=== PATIENT | male | born 1980 | race Caucasian/White ===

== ENCOUNTER 2024-12-13 08:58 | Outpatient (REF) | payer OTHER, SELFPAY ==
--- OUTSIDE RECORDS SUMMARY | 2024-12-13 09:22 | XMS_ITS | Clinical Summary ---
Author Organization [facility] [address] [place] [address] [place] [address] [place] [address] Phone Care Team Providers Care Tile Erector Name Role Phone Earnest Dorado Primary Care Provider [phone] Allergies Active Allergy Reactions Criticality Noted Date Comments Erythromycin Swelling High 06/07/2021 Swollen eyes Medications Medication Sig Dispensed Refills Start Date End Date Status atorvastatin (LIPITOR) 80 mg tablet Take 1 tablet (80 mg total) by mouth 1 (one) time each day. 09/06/2024 Active fluticasone propionate (FLONASE) 50 mcg/actuation nasal spray Administer 2 sprays into each nostril 1 (one) time each day. Active sertraline (ZOLOFT) 50 mg tablet Take 1 tablet (50 mg total) by mouth 1 (one) time each day. 08/02/2024 Active oxyCODONE-aceta minophen (PERCOCET) 5-325 mg per tablet Take 1 tablet by mouth every 8 (eight) hours if needed. 05/18/2023 Active BD Ultra-Fine Short Pen Needle 31 gauge x 5/16 needle USE DIRECTED WITH INSULIN PEN 4 TIMES DAILY 400 each 1 09/30/2024 Active omeprazole (PriLOSEC) [address] capsule TAKE 1 CAPSULE BY MOUTH DAILY 90 capsule 3 11/04/2024 Active insulin glargine,hum.re c.anlog (Basaglar KwikPen U-100 Insulin) 100 unit/mL (3 mL) injection pen Inject 26 Units under the skin 1 (one) time each day. 15 mL 2 11/29/2024 Active insulin aspart, niacinamide, (Fiasp FlexTouch U-100 Insulin) 100 unit/mL (3 mL) injection pen Inject 4-6 Units under the skin 3 (three) times a day before meals. 15 mL 2 11/29/2024 Active blood-glucose sensor (FreeStyle Jamil 3 Plus Sensor) deviceIndicatio ns:Jamil 3 not available Box = Kit = EA. Use 1 sensor every 2 weeks. 6 each 2 11/29/2024 Active metFORMIN XR (GLUCOPHAGE-XR) 500 mg 24 hr tablet TAKE 2 TABLETS BY MOUTH TWICE DAILY WITH FOOD 360 tablet 1 12/09/2024 Active metFORMIN XR (GLUCOPHAGE-XR) 500 mg 24 hr tablet Take 2 tablets twice daily with food. 08/02/2024 12/09/19 Discontinued insulin glargine,hum.re c.anlog (Basaglar KwikPen U-100 Insulin) 100 unit/mL (3 mL) injection pen Inject 22-24 Units under the skin 1 (one) time each day. 08/02/2024 11/29/19 Discontinued(Reo rder) insulin aspart, niacinamide, (Fiasp FlexTouch U-100 Insulin) 100 unit/mL (3 mL) injection pen Inject 4-6 Units under the skin 3 (three) times a day before meals. 08/02/2024 11/29/19 Discontinued(Reo rder) blood-glucose sensor (FreeStyle Jamil 3 Plus Sensor) deviceIndicatio ns:Jamil 3 not available Box = Kit = EA. Use 1 sensor every 2 weeks. 6 each 2 09/19/2024 11/29/19 Discontinued(Reo rder) insulin glargine,hum.re c.anlog (Basaglar KwikPen U-100 Insulin) 100 unit/mL (3 mL) injection pen Inject under the skin. 11/29/19 Discontinued(Dup licate order) metFORMIN (GLUCOPHAGE) 500 mg tablet Take 1 tablet (500 mg total) by mouth 3 (three) times a day. 11/29/19 Discontinued(Dup licate order) Active Problems Problem Noted Date Diagnosed Date Hereditary hemochromatosis 08/31/2024 Lumbar radiculopathy 06/23/2023 Acute pancreatitis 05/04/2023 Overview (09/27/2024): [facility] ER History of 2019 novel coronavirus disease (COVID -19) 07/19/2022 Diabetes mellitus type 2 with neurological manif estations 09/18/2020 Diabetic neuropathy 09/18/2020 Deviated septum 11/21/2016 Umbilical hernia 11/21/2016 IBS (irritable bowel syndrome) 02/19/2013 Overview (09/27/2024): Diarrhea predominant, onset 2010. Post-op pain 02/10/2011 Dysuria 01/31/2011 Hyperlipidemia 08/06/2010 Acne 07/13/2010 Encounters Date Type Department Care Team Description 12/06/2024 9:15 AM EST Office Visit [facility] Hematology Oncology [address] [place] [address] Kade Le MD Hereditary hemochromatosis (CMS/HCC) (Primary Dx) 11/29/2024 9:20 AM EST Office Visit Endocrinology [address] [phone] Jazmin Valera PA 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); Hyperlipidemia, unspecified hyperlipidemia type 11/01/2024 9:44 AM EST - 11/01/2024 11:59 PM EST Hospital Encounter [facility] MRI [address] [place] [id number] Discharge Disposition: Home or Self Care 10/25/2024 11:00 AM EST Ancillary Procedure [facility] [address] [place] [phone] Hemochromatosis, unspecified 10/07/2024 Telephone [facility] Hematology Oncology [address] [place] [phone] Angeles Coughlin [place] Echo/ Abdomen MRI from Last 3 Months Immunizations Name Administration Dates Next Due Influenza Quadravalent, MDCK , 0.5ml, preservative free (Flucelvax) 6mo and older 09/18/2020 Influenza trivalent, 0.5mL, preservative free (Fluarix; FluLaval; Fluzone) ages 6mo and older (Afluria) 3 years and older 11/21/2016 Pneumococcal polysaccharide 23 valent (Pneumovax 23) 2yo and older 03/27/2019 Td Tetanus diptheria (Tdvax) 7yo and older 09/18 Tdap Tetanus diptheria acell ular pertussis (Boostrix; Adacel) 7yo and older 08/04/2010 Surgical History Surgery Date Site/Laterality Comments APPENDECTOMY 01/25/2011 PROCEDURE: HISTORICAL APPENDECTOMY COLONOSCOPY 04/30/2012 PROCEDURE: HISTORICAL COLONOSCOPY; COMMENT: 6mm sigmoid colon polyp and random bx. Pathology report: Random biopsies normal, the polyp was a tubular adenoma. He should have colonoscopy again in 5 years. COLONOSCOPY 12/18/2020 PROCEDURE: HISTORICAL COLONOSCOPY; COMMENT: No polyps, repeat in 10 years. APPENDECTOMY 2012 PROCEDURE:LAPAROSCOPIC APPENDECTOMY APPENDECTOMY PROCEDURE:APPENDECTOMY Medical History Medical History Date Comments Acne 07/13/2010 DX:Acne Hyperlipidemia 08/06/2010 DX:Hyperlipidemi a Dysuria 01/31/2011 DX:Dysuria Appendicitis 01/31/2011 DX:Appendicitis Post-op pain 02/10/2011 DX:Post-op pain Benign neoplasm of colon 05/02/2012 DX:Kang gn neoplasm of colon; COMMENT: Colonoscopy 04/30/2012: Pathology: Random biopsies normal, the polyp was a tubular adenoma. He should have colonoscopy again in 5 years. IBS (irritable bowel syndrome) 02/19/2013 D X:IBS (irritable bowel syndrome); COMMENT: Diarrhea predominant, onset 2010. Deviated septum 11/21/2016 DX:Deviated sept um History of colon polyps 05/02/2012 DX:Histo ry of colon polyps; COMMENT: Colonoscopy 04/30/2012: Pathology: Random biopsies normal, the polyp was a tubular adenoma. He should have colonoscopy again in 5 years. 12/18/2020: Negative colonoscopy 12/18/2020, no colon cancer screening needed for 10 years. Diabetes mellitus (CMS/HCC) DX:D iabetes mellitus (HCC) Pancreatitis DX:Pancreatitis Family History Medical History Relation Name Comments Other: unknown Brother 1 Other: vascular disease Brother 2 Bladder Cancer Father nonsmoker Cancer Father bladder Diabetes Mother Other: unknown Mother Pancreatic cancer Uncle Colon cancer Neg Hx Relation Name Status Comments Brother 1 Alive good health Brother 2 Alive good health Father Alive Mother Alive Paternal Grandfather Paternal Grandmother (Age 70) ca ncer, uncertain of type Uncle Alive Social History Tobacco Use Types Packs/Day Years Used Date Smoking Tobacco: Never Cigarettes Qu it: 11/13/2005 Smokeless Tobacco: Never Tobacco Cessation:Counseling Given: Not Answered Alcohol Use Standard Drinks/Week Comments Not Currently 0.8 (1 standard drink = 0.6 oz p ure alcohol) Sex and Gender Information Value Date Recorded Sex Assigned at Not on file Gender Identity Not on file Sexual Orientation Not on file Job Start Date Occupation Industry Not on file Not on file Not on file Obstetrics History Last Filed Vital Signs Vital Sign Reading Time Taken Comments Blood Pressure 123/91 12/06/2024 9:05 AM EST Pulse 81 12/06/2024 9:05 AM EST Temperature 36.6 ??C (97.8 ??F) 12/06/2024 9:05 AM ES T Respiratory Rate - - Oxygen Saturation 98% 12/06/2024 9:05 AM EST Inhaled Oxygen Concentration - - Weight 77.1 kg (170 lb) 12/06/2024 9:05 AM EST Height 172.7 cm (5' 8 ) 11/29/2024 9:14 AM EST Body Mass Index 25.85 11/29/2024 9:14 AM EST Plan of Treatment Upcoming Encounters Date Type Department Care Team (Late st Contact Info) Description 02/28/2025 9:00 AM EDT Office Visit [facility] Hematology Oncology [address] [place] [phone] Kade Le MD [address] [place] [phone] 03/28/2025 9:40 AM EDT Office Visit Endocrinology - [place] [address] [place] [phone] Jazmin Valera PA [address] [place], [place] Health Maintenance Due Date Last Done Comments Hepatitis B Vaccines (1 of 3 - 19+ 3-dose series) 1997 Pneumococcal Vaccine: Pediatrics (0 to 5 Years) and At-Risk Patients (6 to 64 Years) (2 of 2 - PCV) 03/27/2020 03/27/2019 Depression Screening 10/22/2022 Hepatitis C Screening 10/22/2022 Social Influencers of Health Screening 10/22/2022 Diabetes: Annual Foot Exam 04/26/2024 04/26/2023 COVID-19 Vaccine (1 - 2023-2 5 season) 2024 Influenza Vaccine (#1) 2024 0, 11/21/2016 Diabetes: Blood Sugar Contro l Test (HGBA1C) 01/05/2025 07/05/2024, 07/05/2024 Diabetes: Annual Retina Eye Exam 07/04/2025 07/04/2024 Diabetes: Annual Urine Albumin-Creatinine Ratio (uACR) 07/05/2025 07/05/2024 Diabetes: Annual GFR (Glomerular Filtration Rate) 07/05/2025 07/05/2024, 07/05/2024 Cholesterol Screening (Lipid Panel) 07/05/2029 07/05/2024, 07/05/2024 DTaP,Tdap,and Td Vaccines (3 - Td or Tdap) 09/18/2030 09/18/2020, 08/04/2010 Colorectal Cancer Screening: Colonoscopy 12/18/2030 12/18/2020 HIV Screening Completed 04/15/2015 HIB Vaccines Aged Out No longer eligi ble based on patient's age to complete this topic HPV Vaccines Aged Out No longer eligi ble based on patient's age to complete this topic Hepatitis A Vaccines Aged Out No long er eligible based on patient's age to complete this topic IPV Vaccines Aged Out No longer eligi ble based on patient's age to complete this topic MMR Vaccines Aged Out No longer eligi ble based on patient's age to complete this topic Meningococcal ACWY Vaccine Aged Out N o longer eligible based on patient's age to complete this topic RSV Immunization Patients Under 20 months Aged Out No longer eligible b ased on patient's age to complete this topic Varicella Vaccines Aged Out No longer eligible based on patient's age to complete this topic Procedures Procedure Name Priority Date/Time Associated Diagnosis Comments MR ABDOMEN WO AND W CONTRAST Routine 11/01/2024 11:04 AM EST Hemochromatosis TRANSTHORACIC ECHOCARDIOGRAM (TTE) COMPLETE Routine 10/25/2024 11:43 AM EST Hemochromatosis, unspecified URINE ALBUMIN CREATININE RATIO Routine 07/05/2024 ANNUAL BMP BLOOD TEST Routine 07/05/2024 HEMOGLOBIN A1C Routine 07/05/2024 LIPID PANEL Routine 07/05/2024 DIABETES EYE EXAM Routine 07/04/2024 DIABETES FOOT EXAM Routine 04/26/2023 COLONOSCOPY Routine 12/18/2020 HIV SCREENING Routine 04/15/2015 from Last 3 Months or Most Recently Relevant to Health Maintenance Results * MR Abdomen wo and w Contrast (11/01/2024 11:04 AM EST) Anatomical Region Laterality Modality Body Magnetic Resonan ce 11/01/2024 3:11 PM EST Impressions 11/01/2024 4:00 PM EST Significant hepatic iron overload. ??Calculated liver iron concentration of between 4.60 mg/g using T2*values and the 6.1-6.9 mg/g using R2*values (normal range is 0.17-1.8 mg/g). -------- FINAL REPORT -------- Dictated By: Tremaine Dalal Dictated Date: 11/01/2024 15:11 ET Assigned Physician: Tremaine Dalal Reviewed and Electronically Signed By: Tremaine Dalal Signed Date: 11/01/2024 16:00 ET Workstation ID: [id number] Transcribed By: Self Edit Transcribed Date: 11/01/2024 15:11 ET Narrative 11/01/2024 4:00 PM EST MRI abdomen dated 11/01/2024. HISTORY: HEMOCHROMATOSIS. TECHNIQUE: Multiplanar multisequence MRI of the abdomen with and without intravenous contrast. IV contrast dose: 15 mL Dotarem from a 15 mL vial with 0 mL discarded. COMPARISON: 06/01/2023. FINDINGS: Liver: No focal lesion. ??The portal and hepatic veins are patent. ??Multiecho gradient echo imaging was performed for quantitative iron measurement to the liver. ??R2* values range from 455-513 (yielding a calculated liver iron concentration 6.1-6.9 mg/g). ??T2* values range from 2.980-3.005 (yielding a calculated liver iron concentration of 4.60 mg/g). Biliary: Normal gallbladder and biliary tree. Pancreas: Normal. Spleen: Upper normal size. ??No focal lesion. Adrenal glands: Normal. Kidneys: Normal. ??Visualized portions of the collecting systems are normal. Retroperitoneum: No mass or adenopathy. Bowel/mesentery: Visualized bowel and mesentery are normal. Abdominal wall: Small fat-containing paraumbilical hernia. Bones: Normal. Procedure Note Tremaine Dalal MD - 11/01/2024 MRI abdomen dated 11/01/2024. HISTORY: HEMOCHROMATOSIS. TECHNIQUE: Multiplanar multisequence MRI of the abdomen with and withoutintravenous contrast. IV contrast dose: 15 mL Dotarem from a 15 mL vial with 0 mL discarded. COMPARISON: 06/01/2023. FINDINGS: Liver: No focal lesion. The portal and hepatic veins are patent.Multiecho gradient echo imaging was performed for quantitative ironmeasurement to the liver. R2* values range from 455-513 (yielding acalculated liver iron concentration 6.1-6.9 mg/g). T2* values range from2.980-3.005 (yielding a calculated liver iron concentration of 4.60mg/g). Biliary: Normal gallbladder and biliary tree. Pancreas: Normal. Spleen: Upper normal size. No focal lesion. Adrenal glands: Normal. Kidneys: Normal. Visualized portions of the collecting systems arenormal. Retroperitoneum: No mass or adenopathy. Bowel/mesentery: Visualized bowel and mesentery are normal. Abdominal wall: Small fat-containing paraumbilical hernia. Bones: Normal. IMPRESSION: Significant hepatic iron overload. Calculated liver iron concentration ofbetween 4.60 mg/g using T2*values and the 6.1-6.9 mg/g using R2*values(normal range is 0.17- 1.8 mg/g). -------- FINAL REPORT -------- Dictated By: Tremaine Dalal Dictated Date: 11/01/2024 15:11 ET Assigned Physician: Tremaine Dalal Reviewed and Electronically Signed By: Tremaine Dalal Signed Date: 11/01/2024 16:00 ET Workstation ID: [id number] Transcribed By: Self Edit Transcribed Date: 11/01/2024 15:11 ET Kade Le MD IMG MRI PROCEDURES * (ABNORMAL) TRANSTHORACIC ECHOCARDIOGRAM (TTE) COMPLETE (10/25/2024 11:43 AM EST) Left Atrium Minor Ulysses 4.5 cm CV PACS Left Atrium Major Ulysses 5.0 cm CV PACS LA Area Sys (A2C) 15 cm2 CV PACS LA Area Sys (A4C) 13 cm2 CV PACS LA Volume (BP) 33 mL CV PACS RA Area 12.4 cm2 CV PACS RA 2D Volume 27 mL CV PACS Aortic Sinus Valsalva 3.3 cm CV PACS Ascending Aorta 2.9 cm CV PACS IVSD 0.9 0.6 - 1.0 cm CV PACS LVIDD 4.3 4.2 - 5.8 cm CV PACS LVIDS 2.7 2.5 - 4.0 cm CV PACS LVOT Diameter 1.8 cm CV PACS LVOT Mean Jewel 0.6 m/s CV PACS LVOT Mean Grad 1 mmHg CV PACS LVOT Peak VTI 18.0 cm CV PACS LVOT Peak Jewel 1.0 m/s CV PACS LVOT Peak Gradient 4 mmHg CV PACS LVPWD 0.9 0.6 - 1.0 cm CV PACS MV E' Tissue Velocity Lateral 12 cm/s CV PACS MV E' Tissue Velocity Septal 9 cm/s CV PACS LVOT Area 2.5 cm2 CV PACS LVOT Stroke Volume 46 mL CV PACS E Wave Deceleration Time 201 119 - 242 ms CV PACS MV Peak A Jewel 0.60 m/s CV PACS MV Peak E Jewel 0.60 m/s CV PACS PV Acceleration Time 145 ms CV PACS RV Diastolic Basal Dimension 2.9 2.5 - 4.1 cm CV PACS RV S' 12 cm/s CV PACS TAPSE 18 mm CV PACS TR Peak Velocity 1.50 m/s CV PACS TR Peak Gradient 9 mmHg CV PACS E/E' Ratio Septal 7 CV PACS E/E' Ratio Averaged 6 CV PACS Relative Wall Thickness ratio 0.42 0.24 - 0.42 CV PACS FS 37 % CV PACS LV Mass 2D 122 96 - 200 g CV PACS LVOT flow 153 mL/s CV PACS E/A Ratio 1.0 0.8 - 2.0 CV PACS E/E' Ratio Lateral 5 CV PACS LVOT Stroke Index 0 mL/m2 CV PACS Ascending Aorta Index 1.53 cm/m2 CV PACS RA 2D Volume Index 14 18 - 32 mL/m2 CV PACS LVIDD Index 2.28 cm/m2 CV PACS LVIDS Index 1.43 cm/m2 CV PACS LA Volume Index (BP) 17 mL/m2 CV PACS LV Mass Index 2D 65 50 - 102 g/m2 CV PACS BSA 1.91 m2 CV PACS Ejection Fraction (BP) 44 % CV PACS Ejection Fraction (A4C) 40 % CV PACS Ejection Fraction (A2C) 49 % CV PACS LV Diastolic Volume (BP) 96 62 - 150 mL CV PACS LV Diastolic Volume Index (BP) 0(A) 34 - 74 mL/m2 CV PACS LV Systolic Volume (BP) 54 21 - 61 mL CV PACS LV Systolic Volume Index (BP) 0(A) 11 - 31 mL/m2 CV PACS LV EDV (A4C) 91 mL CV PACS LV EDV Index (A4C) 48 mL/m2 CV PACS LV ESV (A4C) 55 mL CV PACS LV ESV Index (A4C) 29 mL/m2 CV PACS LV EDV (A2C) 100 mL CV PACS LV EDV Index (A2C) 53 mL/m2 CV PACS LV ESV (A2C) 51 mL CV PACS LV ESV Index (A2C) 27 mL/m2 CV PACS LA Volume (A-L) 53 mL CV PACS LA Volume Index (A-L) 28 mL/m2 CV PACS RV Free Wall Peak S' 12 cm/s CV PACS RA Major Ulysses 4.7 cm CV PACS RA Major Ulysses Index 2.5 2.1 - 2.7 cm/m2 CV PACS MV PHT 58 ms CV PACS LV EF MOD 2C 49 % CV PACS LV EF 4C A-L 42 % CV PACS LV EDV 4C A-L 93 mL CV PACS LV Length Sys (A4C) 7.2 cm CV PACS LV Length Florez (A4C) 8.4 cm CV PACS Left Ventricular Stroke Volume by 2-D Biplane-MOD 42 mL CV PACS Anatomical Region Laterality Modality Ultrasound Narrative 10/31/2024 1:51 PM EST ?Left ventricle cavity size is normal. Left ventricular systolic function is in the normal range with an ejection fraction of 55-60%. ?No regional LV wall motion abnormalities noted. ?Right ventricle cavity is normal. Right ventricular systolic function is normal. ?The atria are normal in size. ?No hemodynamically significant valve disease. ?See remainder of the report for additional findings. Left Ventricle Left ventricle cavity size is normal. Wall thickness is normal. Systolic function is normal with an ejection fraction of 55-60%. There are no regional LV wall motion abnormalities. There is no diastolic dysfunction. Normal Global longitudinal strain at -22.2%. Right Ventricle Right ventricle cavity appears normal. Systolic function is normal. Left Atrium Left atrium cavity size is normal. Right Atrium Right atrium cavity is normal. IVC/SVC Inferior vena cava structure is normal. RA pressures is estimated to be 3 mmHg (IVC diameter <21 mm and decreases >50% during inspiration). Mitral Valve Mitral valve structure is normal. There is trace regurgitation. There is no evidence of mitral valve stenosis. Tricuspid Valve Tricuspid valve structure is normal. There is trace regurgitation. There is no evidence of tricuspid valve stenosis. Cannot assess RVSP. Aortic Valve The aortic valve is trileaflet. There is no regurgitation or stenosis. Pulmonic Valve Visualized portions of the pulmonic valve appear normal. No significant pulmonic valve regurgitation. There is no evidence of pulmonic valve stenosis. Ascending Aorta The aorta appears normal in size. Pericardium Pericardium appears normal. There is no pericardial effusion. Study Details Overall the study quality was adequate. Additional technique includes myocardial strain. Kade Le MD CV ECHO PROCEDURES * Urine Albumin Creatinine Ratio (07/05/2024) [facility] Urine Albumin Creatinine Ratio abstracted Historical Provider [facility] Annual BMP Blood Test (07/05/2024) [facility] Annual BMP Blood Test abstracted Historical Provider [facility] Hemoglobin A1c (07/05/2024) [facility] Hemoglobin A1C 5.5 6.5 % Blood Venous blood specimen / Unknown Historical Provider LAB BLOOD ORDERAB LES * (ABNORMAL) Lipid panel (07/05/2024) [facility] LDL/HDL Ratio 2 0 - 4 Triglycerides 169(A) 0 - 150 mg/dL Cholesterol 112 0 - 200 mg/dL HDL 52 40 mg/dL LDL Cholesterol 27 0 - 100 mg/dL Blood Venous blood specimen / Unknown Historical Provider LAB BLOOD ORDERAB LES * Diabetes Eye Exam (07/04/2024) [facility] Diabetes: Annual Retina Eye Exam abstracted [facility] Provider [facility] [employer] [facility] Diabetes Foot Exam (04/26/2023) [facility] Diabetes: Annual Foot Exam abstracted [facility] Provider [facility] * Colonoscopy (12/18/2020) [facility] Colonoscopy no inperatati on,abstact ed Anatomical Region Laterality Modality Other [facility] Provider [facility] * HIV Screening (04/15/2015) [facility] HIV Screening abstracted [facility] Provider [facility] E from Last 3 Months or Most Recently Relevant to Health Maintenance Care Teams Tile Erector Relationship Specialty Start Date End Date Earnest Dorado PA [address] [facility] [place] [id number] PCP - General Internal Medicine 10/09/24
--- OUTSIDE RECORDS SUMMARY | 2024-12-13 09:22 | XMS_ITS | Clinical Summary ---
Author Organization [facility] Address [address] [place], [place] [id number] Care Team Providers Care Bench Grinder Name Role Phone Earnest Dorado PA-C Primary Care Provider Allergies Active Allergy Reactions Criticality Noted Date Comments Erythromycin Swelling High 06/07/2021 Swollen eyes Medications Medication Sig Dispensed Refills Start Date End Date Status metFORMIN (GLUCOPHAGE) tablet 500 mg Take 1 tablet (500 mg total) by mouth 3 (three) times a day. 0 Active atorvastatin (LIPITOR) tablet 40 mg Take 1 tablet (40 mg total) by mouth daily. 0 Active omeprazole (PriLOSEC) 20 MG capsule Take 1 capsule (20 mg total) by mouth daily. 0 Active fluticasone (FLONASE) 50 MCG/ACT nasal spray spray/apply 1 spray in each nostril daily. 0 Active sertraline (ZOLOFT) 50 MG tablet Take 1 tablet (50 mg total) by mouth daily. 0 Active Insulin Glargine (BASAGLAR KWIKPEN SC) Inject under the skin. 0 Active Insulin Aspart, w/Niacinamide, (Fiasp) 100 UNIT/ML SOLN Inject as directed. 0 Active Active Problems Problem Noted Date Diagnosed Date Hereditary hemochromatosis 08/31/2024 Family History Medical History Relation Name Comments Cancer Father bladder Diabetes Mother Relation Name Status Comments Father Alive Mother Alive Social History Tobacco Use Types Packs/Day Years Used Date Smoking Tobacco: Never Smokeless Tobacco: Never Tobacco Cessation:Counseling Given: Not Answered Alcohol Use Standard Drinks/Week Comments Not Currently 0 (1 standard drink = 0.6 oz pur e alcohol) Sex and Gender Information Value Date Recorded Sex Assigned at Not on file Gender Identity Not on file Sexual Orientation Not on file Job Start Date Occupation Industry Not on file Not on file Not on file Last Filed Vital Signs Vital Sign Reading Time Taken Comments Blood Pressure 133/84 08/30/2024 11:34 AM EDT Pulse 72 08/30/2024 11:34 AM EDT Temperature 36.7 ??C (98 ??F) 08/30/2024 11:34 AM EDT Respiratory Rate - - Oxygen Saturation 98% 08/30/2024 11:34 AM EDT Inhaled Oxygen Concentration - - Weight 73.5 kg (162 lb) 08/30/2024 11:34 AM EDT Height 172.7 cm (5' 8 ) 05/17/2023 2:33 PM EDT Body Mass Index 24.63 05/17/2023 2:33 PM EDT Plan of Treatment Health Maintenance Due Date Last Done Comments Hepatitis B Vaccines (1 of 3 - 3-dose series) 1978 Hepatitis C Screening 1978 COVID-19 Vaccine (#1) 05/26/1979 Depression Screening 1990 Preventative Health Evaluation 1996 DTap / Tdap / Td (2 - Td or Tdap) 08/04/2020 010 Colon Cancer Screening (Colonoscopy) 2023 Influenza Vaccine (#1) 2024 09/18/2020 Pneumococcal Vaccine Aged Out 03/27/2019 No long er eligible based on patient's age to complete this topic RSV Ped < 20 months Aged Out No longe r eligible based on patient's age to complete this topic Care Teams Bench Grinder Relationship Specialty Start Date End Date Earnest Dorado PA-C PCP - General Medical Services 07/09/24
--- OUTSIDE RECORDS SUMMARY | 2024-12-13 09:23 | XMS_ITS | Encounter Summary ---
Author Organization [facility] [place] [address] Care Team Providers Care Shingle Catcher Name Role Phone Earnest Dorado Primary Care Provider +1 [phone] Encounter Details Date Type Department Care Team (Late st Contact Info) Description 08/30/2024 11:13 AM EDT Hospital Encounter TH HISTORIC ENCOUNTERS [facility] ONLY Kade Le MD [address] [place] [phone] Social History Tobacco Use Types Packs/Day Years Used Date Smoking Tobacco: Never Cigarettes Qu it: 11/13/2005 Smokeless Tobacco: Never Alcohol Use Standard Drinks/Week Comments Not Currently 0.8 (1 standard drink = 0.6 oz p ure alcohol) Sex and Gender Information Value Date Recorded Sex Assigned at Not on file Gender Identity Not on file Sexual Orientation Not on file Job Start Date Occupation Industry Not on file Not on file Not on file documented as of this encounter Last Filed [...] daughter. 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 He has 1 son [...] Description 02/28/2025 9:00 AM EDT Office Visit [facility] Hematology Oncology [address] [place] [address] Kade Le MD [address] [place] [address] 03/28/2025 9:40 AM EDT Office Visit Endocrinology - [address] [address] Jazmin Valera PA [address] [place] [address] documented as of this encounter Visit Diagnoses Not on filedocumented in this encounter Care Teams Shingle Catcher Relationship Specialty Start Date End Date Earnest Dorado PA PCP - General Internal Medicine 02/23/21 10/08/24 documented as of this encounter
--- OUTSIDE RECORDS SUMMARY | 2024-12-13 09:23 | XMS_ITS | Encounter Summary ---
Author Organization [facility] [place] [address] Care Team Providers Care Assembly Line Brazer Name Role Phone Earnest Dorado Primary Care Provider +1 [phone] Reason for Visit * Reason Comments Diabetes Encounter Details Date Type Department Care Team (Late st Contact Info) Description 11/29/2024 9:20 AM EST Office Visit Endocrinology - [place] [address] [place] [address] Jazmin Valera PA [address] [place] [address] 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); Hyperlipidemia, unspecified hyperlipidemia type Social History Tobacco Use Types Packs/Day Years [...] Sign Reading Time Taken Comments Blood Pressure 117/79 11/29/2024 9:14 AM EST Pulse 67 11/29/2024 9:14 AM EST Temperature 36.2 ??C (97.2 ??F) 11/29/2024 9:14 AM ES T Respiratory Rate - - Oxygen Saturation 97% 11/29/2024 9:14 AM EST Inhaled Oxygen Concentration - - Weight 76.8 kg (169 lb 6.4 oz) 11/29/2024 9:14 A M EST Height 172.7 cm (5' 8 ) 11/29/2024 9:14 AM EST Body Mass Index 25.76 11/29/2024 9:14 AM EST documented in this encounter Ordered Prescriptions Prescription Sig Dispensed Refills Start Date End Da te blood-glucose sensor (FreeStyle Jamil 3 Plus Sensor) deviceIndications:Jamil 3 not available Box = Kit = EA. Use 1 sensor every 2 weeks. 6 each 2 11/29/2024 insulin aspart, niacinamide, (Fiasp FlexTouch U-100 Insulin) 100 unit/mL (3 mL) injection pen Inject 4-6 Units under the skin 3 (three) times a day before meals. 15 mL 2 11/29/2024 insulin glargine,hum.rec.anlog (Basaglar KwikPen U-100 Insulin) 100 unit/mL (3 mL) injection pen Inject 26 Units under the skin 1 (one) time each day. 15 mL 2 11/29/2024 documented in this encounter Progress Notes * Sarahi Gimenez MA - 11/29/2024 9:20 AM EST FSBS 156 per CGM * OSCAR Prajapati - 11/29/2024 9:20 AM EST CHIEF COMPLAINT: Diabetes IDENTIFIER: Toan Savage is a 44 y.o. old male HPI: Patient is a 44-year-old male presents today for diabetes follow up. History of pancreatitis. No longer taking Jardiance. Diagnosed with diabetes at the age of 38. Denies any family history of diabetes. Denies any hospitalization. Lab Results Component Value Date HGBA1C 5.5 07/05/2024 HGBA1C 5.6 01/25/2024 HGBA1C 5.6 01/25/2024 HGBA1C 5.2 04/13/2023 HGBA1C 5.9 11/08/2022 Current diabetic regimen: Metformin 500 mg 2 tablets in AM Glargine 26 units every morning NovoLog 4 to 6 units before meals No complaints of polyuria, polydipsia, nausea vomiting Denies persistently low sugars. Making good dietary choices, active during the day. Using jamil 3: 7 day average: 160 14 day average: 158 30 day average: 155 90 day average: 149 Time and ranges: Very high sugars greater than 250: 2% High sugars between 181 and 250: 18% Target range between 70 and 180: 80% Low or very low sugars: 0%. Not taking statin for the last one month, he thinks he might not need this. BP is at 130/61 Overdue for eye exam--needs to schedule this. Lab Results Component Value Date HGBA1C 5.5 07/05/2024 ROS: GENERAL: No malaise, significant weight loss or fever HEENT: No changes in hearing or vision RESPIRATORY: No cough, wheezing or shortness of breath CARDIOVASCULAR: No chest pain, leg swelling or palpitations GI: No abdominal discomfort ENDO: see HPI NEURO: No persistent headache, syncope PAST MEDICAL HISTORY: Patient Active Problem List Diagnosis Date Noted Hereditary hemochromatosis ([facility]/HCC) 08/31/2024 Lumbar radiculopathy 06/23/2023 Acute pancreatitis 05/04/2023 History of 2019 novel coronavirus disease (COVID-19) 07/19/2022 Diabetes mellitus type 2 with neurological manifestations ([facility]) 09/18/2020 Diabetic neuropathy ([facility]) 09/18/2020 Deviated septum 11/21/2016 Umbilical hernia 11/21/2016 IBS (irritable bowel syndrome) 02/19/2013 Post-op pain 02/10/2011 Dysuria 01/31/2011 Hyperlipidemia 08/06/2010 Acne 07/13/2010 Past Surgical History: Procedure Laterality Date APPENDECTOMY 01/25/2011 PROCEDURE: HISTORICAL APPENDECTOMY APPENDECTOMY 2012 PROCEDURE:LAPAROSCOPIC APPENDECTOMY APPENDECTOMY PROCEDURE:APPENDECTOMY COLONOSCOPY 04/30/2012 PROCEDURE: HISTORICAL COLONOSCOPY; COMMENT: 6mm sigmoid colon polyp and random bx. Pathology report: Random biopsies normal, the polyp was a tubular adenoma. He should have colonoscopy again in 5 years. COLONOSCOPY 12/18/2020 PROCEDURE: HISTORICAL COLONOSCOPY; COMMENT: No polyps, repeat in 10 years. SOCIAL HISTORY: Social History Tobacco Use Smoking status: Never Smokeless tobacco: Never Substance Use Topics Alcohol use: Not Currently Alcohol/week: 0.8 standard drinks of alcohol FAMILY HISTORY: Family History Problem Relation Name Age of Onset Other (Other: unknown) Mother Bladder Cancer Father nonsmoker Other (Other: unknown) Brother Other (Other: vascular disease) Brother Pancreatic cancer Uncle Colon cancer Neg Hx Diabetes Mother Cancer Father bladder Family Status Relation Name Status Mother Alive Father Alive Brother Alive good health Brother Alive good health Uncle Alive Neg Hx (Not Specified) PGM at age 70 cancer, uncertain of type PGF No partnership data on file MEDICATIONS DISCONTINUED/REORDERED: Medications Discontinued During This Encounter Medication Reason metFORMIN (GLUCOPHAGE) 500 mg tablet Duplicate order insulin glargine,hum.rec.anlog (Basaglar KwikPen U-100 Insulin) 100 unit/mL (3 mL) injection pen Duplicate order insulin glargine,hum.rec.anlog (Basaglar KwikPen U-100 Insulin) 100 unit/mL (3 mL) injection pen Reorder insulin aspart, niacinamide, (Fiasp FlexTouch U-100 Insulin) 100 unit/mL (3 mL) injection pen Reorder blood-glucose sensor (FreeStyle Jamil 3 Plus Sensor) device Reorder ACTIVE MEDICATIONS: Outpatient Medications Marked as Taking for the 11/29/24 encounter (Office Visit) with OSCAR Prajapati Medication Sig Dispense Refill atorvastatin (LIPITOR) 80 mg tablet Take 1 tablet (80 mg total) by mouth 1 (one) time each day. BD Ultra-Fine Short Pen Needle 31 gauge x 5/16 needle USE DIRECTED WITH INSULIN PEN 4 TIMES DAILY 400 each 1 blood-glucose sensor (FreeStyle Jamil 3 Plus Sensor) device Box = Kit = EA. Use 1 sensor every 2 weeks. 6 each 2 fluticasone propionate (FLONASE) 50 mcg/actuation nasal spray Administer 2 sprays into each nostril1 (one) time each day. insulin aspart, niacinamide, (Fiasp FlexTouch U-100 Insulin) 100 unit/mL (3 mL) injection pen Inject 4-6 Units under the skin 3 (three) times a day before meals. 15 mL 2 insulin glargine,hum.rec.anlog (Basaglar KwikPen U-100 Insulin) 100 unit/mL (3 mL) injection pen Inject 26 Units under the skin 1 (one) time each day. 15 mL 2 metFORMIN XR (GLUCOPHAGE-XR) 500 mg 24 hr tablet Take 2 tablets twice daily with food. omeprazole (PriLOSEC) [address] capsule TAKE 1 CAPSULE BY MOUTH DAILY 90 capsule 3 oxyCODONE-acetaminophen (PERCOCET) 5-325 mg per tablet Take 1 tablet by mouth every 8 (eight) hoursif needed. Max Daily Amount: 3 tablets sertraline (ZOLOFT) 50 mg tablet Take 1 tablet (50 mg total) by mouth 1 (one) time each day. [DISCONTINUED] blood-glucose sensor (FreeStyle Jamil 3 Plus Sensor) device Box = Kit = EA. Use 1 sensor every 2 weeks. 6 each 2 [DISCONTINUED] insulin aspart, niacinamide, (Fiasp FlexTouch U-100 Insulin) 100 unit/mL (3 mL) injection pen Inject 4-6 Units under the skin 3 (three) times a day before meals. [DISCONTINUED] insulin glargine,hum.rec.anlog (Basaglar KwikPen U-100 Insulin) 100 unit/mL (3 mL) injection pen Inject 22-24 Units under the skin 1 (one) time each day. [DISCONTINUED] insulin glargine,hum.rec.anlog (Basaglar KwikPen U-100 Insulin) 100 unit/mL (3 mL) injection pen Inject under the skin. ALLERGIES: Erythromycin PHYSICAL EXAM: Blood pressure 117/79, pulse 67, temperature 36.2 ??C (97.2 ??F), temperature source Temporal, height 1.727 m (68 ), weight 76.8 kg (169 lb 6.4 oz), SpO2 97%. Body mass index is 25.76 kg/m??. Plan isdeferred until next visit APPEARANCE: Alert and in no acute distress HEART: RRR LUNG: clear to auscultation NEURO: Awake, alert LABS: Lab Results Component Value Date HGBA1C 5.5 07/05/2024 Lab Results Component Value Date MICROALBCREA abstracted 07/05/2024 No results found for: GLUCOSE IMAGING: IMPRESSION: 1. Diabetes mellitus type 2 with neurological manifestations (CMS/[facility]) 2. Hyperlipidemia, unspecified hyperlipidemia type PLAN: Diabetes: AGP report is reviewed today. Average glucose at 158 with target range met at 80% for sugars between 70 and 180. No change to insulin No change to metformin. Refill sent. Diabetic diet reinforced, cutting back on carbohydrates avoiding sugary snacks and drinks, starchy vegetables. Continue to remain active, brisk walking 20 to 30 minutes a day x5 days a week. Avoid frequent snacking. Target fasting sugars between 90 and 130 and 2 or postprandial sugars less than 180 are discussed. Previous microalbumin test was negative. Check fasting lipids, will restart statin after reviewing panel. Blood pressure control reasonable, low-salt diet. Return here in 4 months for reevaluation. Medication and lab orders: Orders Placed This Encounter Procedures Hemoglobin A1c Lipid panel with reflex to direct LDL None OSCAR Vann on 11/29/2024 at 9:45 AM EST documented in this encounter Plan of Treatment Upcoming Encounters Date Type Department Care Team (Late st Contact Info) Description 02/28/2025 9:00 AM EDT Office Visit [facility] Hematology Oncology [address] [place] [address] Kade Le MD [address] [place] [address] 03/28/2025 9:40 AM EDT Office Visit Endocrinology - [address] [address] Jazmin Valera PA [address] [place] [address] Scheduled Orders Name Type Priority Associated Diagnoses Orde r Schedule Hemoglobin A1c Lab Routine Diabetes mellitus type 2 with neurological manifestations ([facility]/HCC) Expected: 11/29/2024, Expires: 11/29/2025 Lipid panel with reflex to direct LDL Lab Routine Diabetes mellitus type 2 with neurological manifestations (CMS/HCC) Hyperlipidemia, unspecified hyperlipidemia type Expected: 11/29/2024, Expires: 11/29/2025 documented as of this encounter Visit Diagnoses Diagnosis Diabetes mellitus type 2 with neurological manifestations (CMS/HCC)- Primary Hyperlipidemia, unspecified hyperlipidemia type documented in this encounter Discontinued Medications Medication Sig Discontinue Reason Start Date End Da te metFORMIN (GLUCOPHAGE) 500 mg tablet Take 1 tablet (500 mg total) by mouth 3 (three) times a day. Duplicate order 11/29/2024 insulin glargine,hum.rec.anlog (Basaglar KwikPen U-100 Insulin) 100 unit/mL (3 mL) injection pen Inject under the skin. Duplicate order 11/29/2024 insulin glargine,hum.rec.anlog (Basaglar KwikPen U-100 Insulin) 100 unit/mL (3 mL) injection pen Inject 22-24 Units under the skin 1 (one) time each day. Reorder 08/02/2024 11/29/2024 insulin aspart, niacinamide, (Fiasp FlexTouch U-100 Insulin) 100 unit/mL (3 mL) injection pen Inject 4-6 Units under the skin 3 (three) times a day before meals. Reorder 08/02/2024 11/29/2024 blood-glucose sensor (FreeStyle Jamil 3 Plus Sensor) deviceIndications:Jamil 3 not available Box = Kit = EA. Use 1 sensor every 2 weeks. Reorder 09/19/2024 11/29/2024 documented as of this encounter Care Teams Assembly Line Brazer Relationship Specialty Start Date End Date Earnest Dorado PA [address] [place] [address] PCP - General Internal Medicine 10/09/24 documented as of this encounter
--- OUTSIDE RECORDS SUMMARY | 2024-12-13 09:24 | XMS_ITS | Encounter Summary ---
Author Organization [facility] [place] [address] Care Team Providers Care Manager Travel Name Role Phone Earnest Dorado Primary Care Provider +1 [phone] Reason for Visit * Reason Comments Follow-up Encounter Details Date Type Department Care Team (Latest Contact Info) Description 12/06/2024 9:15 AM EST Office Visit Hematology Oncology [address] [place] [address] Kade Le MD [address] [place] [address] Hereditary hemochromatosis (CMS/HCC) (Primary Dx) Social History Tobacco Use Types Packs/Day Years [...] (170 lb) 12/06/2024 9:05 AM EST Height - - Body Mass Index 25.85 11/29/2024 9:14 AM EST documented in this encounter Progress Notes * Kade Le MD - 12/06/2024 9:15 AM EST Diagnosis/treatment: Hereditary hemochromatosis. Interval history: The patient is a 44-year-old gentleman who is referred for management of hereditary hemochromatosis. He denies awareness of any family history of hemochromatosis. LFTs on 01/25/2024 were normal. A percent transferrin saturation was elevated at 53. A ferritin was 265. 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 A CBC on 07/05/2024 showed WBC 8.0, hemoglobin 16.5 with MCV 90, and platelet count 296,000. A creatinine was 1.3. A calcium was 10.1. LFTs were normal. A percent transferrin saturation was 79. An echocardiogram on 10/25/2024 showed a normal LVEF and no evidence of iron deposition. An abdominal MRI with contrast on 11/01/2024 showed marked iron overload with a iron concentration between 4.6 mg/g by T2 values and 6.9 mg/g using R2 values. He reports an excellent exercise tolerance. He [...] daughter. 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 He has 1 son and 1 daughter. He denies tobacco use. He smokes marijuana. He denies alcohol use. Physical examination: Deferred. 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 He reports an excellent exercise tolerance. An echocardiogram in 10/2024 showed a normal LVEF and no iron deposition. LFTs have been normal. However, an abdominal MRI in 10/2024 showed marked iron deposition. We will start a phlebotomy regimen to keep the percent transferrin saturation and ferritin less than 50 and achieve an iron deficiency. We will start with phlebotomies at 1 unit every 2 weeks. We will monitor abdominal MRIs for iron deposition. His father and paternal uncle reportedly tested positive for germline BRCA genetic mutation. The patient states that he will also be tested. Visit summary: The patient is a 44-year-old gentleman recently found to have hereditary hemochromatosis. An echocardiogram showed a normal LVEF and no iron deposition. An abdominal MRI showed marked iron deposition. We will start a phlebotomy regimen with 1 unit every 2 weeks to decrease the hepatic iron load. This encounter is of moderate risk. The patient has hereditary hemochromatosis, which is a life-threatening condition. Will start a phlebotomy regimen. documented in this encounter Plan of Treatment Upcoming Encounters Date Type Department Care Team (Late st Contact Info) Description 02/28/2025 9:00 AM EDT Office Visit Hematology Oncology [address] [place] [phone] Kade Le MD [address] [place] [phone] 03/28/2025 9:40 AM EDT Office Visit [address] [address] Jazmin Valera PA [address] [place] [address] Scheduled Orders Name Type Priority Associated Diagnoses Orde r Schedule CBC and differential Lab Routine Hereditary hemochromatosis (CMS/HCC) Expected: 03/06/2025 (Approximate), Expires: 12/06/2025 Ferritin Lab Routine Hereditary hemochromatosis (CMS/HCC) Expected: 03/06/2025 (Approximate), Expires: 12/06/2025 Iron and TIBC Lab Routine Hereditary hemochromatosis (CMS/HCC) Expected: 03/06/2025 (Approximate), Expires: 12/06/2025 Comprehensive metabolic panel Lab Routine Hereditary hemochromatosis (CMS/HCC) Expected: 03/06/2025 (Approximate), Expires: 12/06/2025 documented as of this encounter Visit Diagnoses Diagnosis Hereditary hemochromatosis (CMS/HCC)- Primary Hereditary hemochromatosis documented in this encounter Care Teams Manager Travel Relationship Specialty Start Date End Date Earnest Dorado PA [address] [place] [address] PCP - General Internal Medicine 10/09/24 documented as of this encounter
== END 2024-12-13 08:59 | disposition home or self-care (01) ==
LOC: HO.BBR 08:58
PROVIDERS: PCP Physician Assistant Medical; Visit Provider Internal Medicine Hematology & Oncology
DX: Z13.89 Encounter for screening for other disorder (principal)

== ENCOUNTER 2024-12-27 08:49 | Outpatient (REF) | payer OTHER, SELFPAY ==
--- OUTSIDE RECORDS SUMMARY | 2024-12-27 09:06 | XMS_ITS | Encounter Summary ---
Author Organization [facility] [place] [address] Care Team Providers Care Toll Testboard Worker Name Role Phone Earnest Dorado Primary Care Provider +1 [phone] Encounter Details Date Type Department Care Team (Latest Contact Info) Description 12/17/2024 6:00 AM EST - 12/17/2024 11:59 PM EST Hospital Encounter [facility] Xray [address] [place] [address] Pain Discharge Disposition: Home or Self Care Social History Tobacco Use Types Packs/Day Years Used Date Smoking Tobacco: Former Cigarettes Q uit: 11/10/2003 Smokeless Tobacco: Never Alcohol Use Standard Drinks/Week Comments Never 0.8 (1 standard drink = 0.6 oz p ure alcohol) Interpersonal Safety Answer Date Record ed Physical Abuse 12/17/2024 Verbal Abuse 12/17/2024 Sex and Gender Information Value Date Recorded Sex Assigned at Male 12/17/2024 6:54 AM EST Legal Sex Male 6:11 PM EST Gender Identity Male 12/17/2024 6:54 AM EST Sexual Orientation Straight 12/17/2024 6: 54 AM EST documented as of this encounter Medications at Time of Discharge atorvastatin (LIPITOR) 80 mg tablet Take 1 tablet (80 mg total) by mouth 1 (one) time each day. 09/06/2024 BD Ultra-Fine Short Pen Needle 31 gauge x 5/16 needle USE DIRECTED WITH INSULIN PEN 4 TIMES DAILY 400 each 1 09/30/2024 blood-glucose sensor (FreeStyle Jamil 3 Plus Sensor) deviceIndication s:Jamil 3 not available Box = Kit = EA. Use 1 sensor every 2 weeks. 6 each 2 11/29/2024 fluticasone propionate (FLONASE) 50 mcg/actuation nasal spray Administer 2 sprays into each nostril 1 (one) time each day. insulin aspart, niacinamide, (Fiasp FlexTouch U-100 Insulin) 100 unit/mL (3 mL) injection pen Inject 4-6 Units under the skin 3 (three) times a day before meals. 15 mL 2 11/29/2024 insulin glargine,hum.rec .anlog (Basaglar KwikPen U-100 Insulin) 100 unit/mL (3 mL) injection pen Inject 26 Units under the skin 1 (one) time each day. 15 mL 2 11/29/2024 metFORMIN XR (GLUCOPHAGE-XR) 500 mg 24 hr tablet TAKE 2 TABLETS BY MOUTH TWICE DAILY WITH FOOD 360 tablet 1 12/09/2024 omeprazole (PriLOSEC) [address] capsule TAKE 1 CAPSULE BY MOUTH DAILY 90 capsule 3 11/04/2024 oxyCODONE-acetam inophen (PERCOCET) 5-325 mg per tablet Take 1 tablet by mouth every 8 (eight) hours if needed. 05/18/2023 sertraline (ZOLOFT) 50 mg tablet Take 1 tablet (50 mg total) by mouth 1 (one) time each day. 08/02/2024 documented as of this encounter Discharge Disposition Disposition Code Departure Means Destination Home or Self Care documented in this encounter Plan of Treatment Upcoming Encounters Date Type Department Care Team (Late st Contact Info) Description 02/28/2025 9:00 AM EDT Office Visit [facility] Hematology Oncology [address] [place] [phone] Kade Le MD [address] [place] [phone] 03/28/2025 9:40 AM EDT Office Visit Endocrinology - [place] [address] [place] [address] Jazmin Valera PA [address] [place] [address] documented as of this encounter Procedures Procedure Name Priority Date/Time Associated Diagnosis Comments XR FLUORO UP TO 1 HOUR Routine 12/17/2024 7:48 AM EST Pain documented in this encounter Results * XR Fluoro Up To 1 Hour (12/17/2024 7:48 AM EST) Anatomical Region Laterality Modality Body Radio Fluoroscop y 12/17/2024 1:15 PM EST Impressions 12/17/2024 1:20 PM EST Impression: Fluoroscopy provided by the Department of Radiology during a pain management procedure. NC -------- FINAL REPORT -------- Dictated By: Natalie Monsivais Dictated Date: 12/17/2024 13:15 ET Assigned Physician: Natalie Monsivais Reviewed and Electronically Signed By: Natalie Monsivais Signed Date: 12/17/2024 13:20 ET Workstation ID: [id number] Transcribed By: Self Edit Transcribed Date: 12/17/2024 13:15 ET Narrative 12/17/2024 1:20 PM EST Findings: Fluoroscopy was provided for Dr. Kennedy during a pain management procedure. No radiologist was in attendance. Cumulative Dose: 2.86 mGy Procedure Note Natalie Monsivais MD - 12/17/2024 Findings: Fluoroscopy was provided for Dr. Kennedy during a pain management procedure.No radiologist was in attendance. Cumulative Dose: 2.86 mGy IMPRESSION: Impression: Fluoroscopy provided by the Department of Radiology during a painmanagement procedure. NC -------- FINAL REPORT -------- Dictated By: Natalie Monsivais Dictated Date: 12/17/2024 13:15 ET Assigned Physician: Natalie Monsivais Reviewed and Electronically Signed By: Natalie Monsivais Signed Date: 12/17/2024 13:20 ET Workstation ID: [id number] Transcribed By: Self Edit Transcribed Date: 12/17/2024 13:15 ET us Jovanny Kennedy MD IMG FLUOROSCOPY PROCEDURES Fin al Result documented in this encounter Visit Diagnoses Diagnosis Pain Generalized pain documented in this encounter Care Teams Toll Testboard Worker Relationship Specialty Start Date End Date Earnest Dorado PA [address] [place] [address] PCP - General Internal Medicine 10/09/24 documented as of this encounter
--- OUTSIDE RECORDS SUMMARY | 2024-12-27 09:06 | XMS_ITS | Encounter Summary ---
Author Organization [facility] [place] [address] Care Team Providers Care Therapist Phys Name Role Phone Earnest Dorado Primary Care Provider [phone] [phone] Reason for Visit * Reason Comments Follow-up Encounter Details Date Type Department Care Team (Latest Contact Info) Description 12/06/2024 9:15 AM EST Office Visit [facility] Hematology Oncology [address] [place] [address] Kade Le MD [address] [place] [address] Hereditary hemochromatosis (CMS/HCC) (Primary Dx) [...] daughter. 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 He has 1 son [...] Description 02/28/2025 9:00 AM EDT Office Visit [facility] Hematology Oncology [address] [place] [address] Kade Le MD [address] [place] [address] 03/28/2025 9:40 AM EDT Office Visit Endocrinology - [place] [address] [place] [address] Jazmin Valera PA [address] [place] [address] Scheduled Orders Name Type Priority Associated Diagnoses [...] hemochromatosis documented in this encounter Care Teams Therapist Phys Relationship Specialty Start Date End Date Earnest Dorado PA [address] [place] [address] PCP - General Internal Medicine 10/09/24 documented as of this encounter
--- OUTSIDE RECORDS SUMMARY | 2024-12-27 09:06 | XMS_ITS | Encounter Summary ---
Author Organization [facility] Address [address] [place] [address] Care Team Providers Care Implementation Specialist Payroll Name Role Phone Earnest Dorado Primary Care Provider [phone] [phone] Reason for Referral * Pain Management (Routine) - Closed Specialty Diagnoses / Procedures Referred By Contac t Referred To Contact Pain Medicine Diagnoses Radiculopathy, lumbar region Procedures Injection epidural lumbar transforaminal bilateral Jovanny Kennedy MD [address] [place] [address] Phone: tel: fax: Referral ID Status Reason Start Date Expiration Date Visits Re quested Visits Authorized [id number] Closed 12/13/2024 12/13/2025 1 1 Reason for Visit * Pain Management (Routine) - Closed Specialty Diagnoses / Procedures Referred By Contac t Referred To Contact Pain Medicine Diagnoses Radiculopathy, lumbar region Procedures Injection epidural lumbar transforaminal bilateral Jovanny Kennedy MD [address] [place] [address] Phone: tel: fax: Referral ID Status Reason Start Date Expiration Date Visits Re quested Visits Authorized [id number] Closed 12/13/2024 12/13/2025 1 1 Encounter Details Date Type Department Care Team (Latest Contact Info) Description 12/17/2024 6:56 AM EST - 12/17/2024 11:59 PM EST Hospital Encounter [facility] Pain Management [address] [place] [address] Jovanny Kennedy MD [address] [place] [address] Radiculopathy, lumbar region Discharge Disposition: Home or Self Care Social History Tobacco Use Types Packs/Day Years Used Date Smoking Tobacco: Former Cigarettes Q uit: 11/10/2003 Smokeless Tobacco: Never Tobacco Cessation:Counseling Given: No Alcohol Use Standard Drinks/Week Comments Never 0.8 [...] Sign Reading Time Taken Comments Blood Pressure 120/88 12/17/2024 7:53 AM EST Pulse 75 12/17/2024 7:53 AM EST Temperature 36.4 ??C (97.6 ??F) 12/17/2024 7:53 AM ES T Respiratory Rate 16 12/17/2024 7:53 AM EST Oxygen Saturation 98% 12/17/2024 7:53 AM EST Inhaled Oxygen Concentration - - Weight 72.6 kg (160 lb) 12/17/2024 7:23 AM EST Height 172.7 cm (5' 8 ) 12/17/2024 7:23 AM EST Body Mass Index 24.33 12/17/2024 7:23 AM EST documented in this encounter Medications at Time of Discharge atorvastatin (LIPITOR) 80 mg tablet Take 1 tablet (80 mg total) by mouth 1 (one) time each day. 09/06/2024 BD Ultra-Fine Short Pen Needle 31 gauge x 5/16 needle USE DIRECTED WITH INSULIN PEN 4 TIMES DAILY 400 each 1 09/30/2024 blood-glucose sensor (FreeStyle Jamli 3 Plus Sensor) deviceIndication s:Jamil 3 not [...] or Self Care documented in this encounter Procedure Notes * Jovanny Kennedy MD - 12/17/2024 7:30 AM EST INTERLAMINAR EPIDURAL STEROID INJECTION Jovanny Kennedy MD Anesthesia: local Preop Diagnosis: Lumbar Radiculopathy Postop Diagnosis: same Patient presents for a lumbar epidural injection. The patient is not considered to be a candidate for surgical intervention at this point. The patient has not experienced satisfactory relief from other treatment modalities such as anti- inflammatory medications, analgesic pain medications, physical therapy, and a home exercise program. The risks, benefits and alternatives of lumbar epidural steroid injection were discussed with the patient. The patient understands that this is an invasive procedure and therefore there are inherent risks. The patient was informed of the risks of the procedure including but not limited to infection, bleeding, injury to nearby tissues, vessels, and nerves, paralysis of one or more limbs, stroke, transient headache, no decrease in pain or worsened pain, heart attack and . In rare cases, a blood patch is necessary to alleviate a headache if the dura was punctured. The steroid portion of theinjection may cause hot flashes for a few days, possible avascular necrosis of the hip, fluid retention, mood swings, and a transient rise in blood glucose. Cataracts and severe arthritis of the hipsor shoulders are a rare complication of prolonged or excessive use of steroids. No certain guarantees have been made and patient understand that responses can vary and multiple procedures may be necessary. The patient was informed that one or more of their extremities could feel heavy or weak for 6-8 hours after the procedure, and that they should have assistance with ambulation and not drive during that time. A timeout procedure was performed according to protocol after positioning and prepping the patient in the usual sterile fashion. The patient was identified, the correct side and site(s) of the procedure was confirmed, and all necessary equipment was available. Fluoroscopic Guidance was performed, and images were saved into our system. The use of direct fluoroscopic visualizations of the needle (rather than a palpation-guided procedure) was required to ensure accurate needle and injection placement, in order for diagnostic specificity when evaluating effectiveness of the injection, and for safety purposes to minimize risk of bleeding or injury to nearby neurovascular structures. The overlying skin was prepped with Duraprep The patient was identified and timeout confirmed the correct site(s) for the procedure(s). The patient was positioned. The fluoroscope was then used to produce a clear image of the lumbar spine. The appropriate interlaminar space was identified. The skin over the L4/5 (L>>R) interspace was infiltrated with anesthetic. A Tuohy epidural needle was directed toward interlaminar space under fluoroscopic guidance without resistance. Fluoroscopy confirmed the position of the needle in the epidural space. Loss of resistance technique was utilized to identify entrance of the needle into the epidural space. Negative aspiration was confirmed. Good flow was visualized along the suspect lumbar spinal nerve and into the epidural space. After negative aspiration, steroid and anesthetic were injected. The L4/5 (L>>R) level was injected with 1 ml of Isovue, 2 ml of 1% lidocaine without epinephrine for each injection, using a 20 gauge 10 cm Tuohy needle. Resistance performed using loss of air. A total of 80 mg of Methylprednisolone acetate (Depo-Medrol), 80mg was injected. Local infiltrationinto the skin was achieved with 5 ml of 1% lidocaine without epinephrine. Postcare: Patient can resume activities as tolerated. Please contact the office if you develop headache or fever, have difficulty with bowel or bladder function, or have redness or bruising at the injection site. documented in this encounter Plan of Treatment Upcoming Encounters Date Type Department Care Team (Late st Contact Info) Description 02/28/2025 9:00 AM EDT Office Visit [facility] Hematology Oncology [address] [place] [phone] Kade Le MD [address] [place] [phone] 03/28/2025 9:40 AM EDT Office Visit Endocrinology - [place] [address] [place] [address] Jazmin Valera PA [address] [place] [address] Scheduled Orders Name Type Priority Associated Diagnoses Orde r Schedule ECG 12 lead - Procedural (No Charge) ECG Routine Once for 1 Occurrences starting 12/17/2024 until 12/17/2024 Injection epidural lumbar transforaminal bilateral Procedures Routine Radiculopathy, lumbar region Once for 1 Occurrences starting 12/17/2024 until 12/17/2024 documented as of this encounter Visit Diagnoses Diagnosis Radiculopathy, lumbar region Thoracic or lumbosacral neuritis or radiculitis, unspecified documented in this encounter Orders Medications Ordered That Vinny ht Not Have Been Administered Count Last Ordered Date First Ordered Date lactated Ringer's infusion 1 12/17/2024 sodium chloride 0.9 % flush 10 mL 2 025 documented in this encounter Care Teams Implementation Specialist Payroll Relationship Specialty Start Date End Date Earnest Dorado PA [address] [place] [address] PCP - General Internal Medicine 10/09/24 documented as of this encounter
--- OUTSIDE RECORDS SUMMARY | 2024-12-27 09:06 | XMS_ITS | Encounter Summary ---
Author Organization [facility] [place] [address] Care Team Providers Care Animal Chiropractor Name Role Phone aErnest Dorado Primary Care Provider [phone] [phone] Encounter Details Date Type Department Care Team (Late st Contact Info) Description 08/30/2024 11:13 AM EDT Hospital Encounter TH HISTORIC ENCOUNTERS EASTERN CONVERSION ONLY Kade Le MD [address] [place] [phone] Social History Tobacco Use Types Packs/Day [...] daughter. 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 He has 1 son [...] Description 02/28/2025 9:00 AM EDT Office Visit [facility] Hematology Oncology [address] [place] [phone] Kade Le MD [address] [place] [address] 03/28/2025 9:40 AM EDT Office Visit Endocrinology - [place] [address] [place] [phone] Jazmin Valera PA [address] [place] [address] documented as of this encounter Visit Diagnoses Not on filedocumented in this encounter Care Teams Animal Chiropractor Relationship Specialty Start Date End Date Earnest Dorado PA PCP - General Internal Medicine 02/23/21 10/08/24 documented as of this encounter
--- OUTSIDE RECORDS SUMMARY | 2024-12-27 09:06 | XMS_ITS | Clinical Summary ---
Author Organization [facility] Address [address] [place], [place] [id number] Care Team Providers Care Electronics Research Engineer Name Role Phone Earnest Dorado PA-C Primary [...] age to complete this topic Care Teams Electronics Research Engineer Relationship Specialty Start Date End Date Earnest Dorado PA-C PCP - General Medical Services 07/09/24
--- OUTSIDE RECORDS SUMMARY | 2024-12-27 09:06 | XMS_ITS | Clinical Summary ---
Author Organization [facility] [address] [place] [address] [place] [address] [place] [address] Phone Care Team Providers Care Rough Rib Grader Name Role Phone Earnest Dorado Primary Care Provider [phone] [phone] Allergies Active Allergy Reactions Criticality Noted Date Comments Erythromycin Swelling High 06/07/2021 Swollen eyes Medications atorvastatin (LIPITOR) 80 mg tablet Take 1 tablet (80 mg total) by mouth 1 (one) time each day. 09/06/20 24 Active fluticasone propionate (FLONASE) 50 mcg/actuation nasal spray Administer 2 sprays into each nostril 1 (one) time each day. Active sertraline (ZOLOFT) 50 mg tablet Take 1 tablet (50 mg total) by mouth 1 (one) time each day. 08/02/20 24 Active oxyCODONE-acet aminophen (PERCOCET) 5-325 mg per tablet Take 1 tablet by mouth every 8 (eight) hours if needed. 05/18/20 23 Active BD Ultra-Fine Short Pen Needle 31 gauge x 5/16 needle USE DIRECTED WITH INSULIN PEN 4 TIMES DAILY 400 each 1 09/30/20 24 Active omeprazole (PriLOSEC) [address] capsule TAKE 1 CAPSULE BY MOUTH DAILY 90 capsule 3 11/04/20 24 Active insulin glargine,hum.r ec.anlog (Basaglar KwikPen U-100 Insulin) 100 unit/mL (3 mL) injection pen Inject 26 Units under the skin 1 (one) time each day. 15 mL 2 01/17/20 25 Active insulin aspart, niacinamide, (Fiasp FlexTouch U-100 Insulin) 100 unit/mL (3 mL) injection pen Inject 4-6 Units under the skin 3 (three) times a day before meals. 15 mL 2 11/29/19 25 Active blood-glucose sensor (FreeStyle Jamil 3 Plus Sensor) deviceIndicati ons:Jamil 3 not available Box = Kit = EA. Use 1 sensor every 2 weeks. 6 each 2 11/29/19 25 Active metFORMIN XR (GLUCOPHAGE-XR ) 500 mg 24 hr tablet TAKE 2 TABLETS BY MOUTH TWICE DAILY WITH FOOD 360 tablet 1 12/09/19 25 Active metFORMIN XR (GLUCOPHAGE-XR ) 500 mg 24 hr tablet Take 2 tablets twice daily with food. 08/02/20 24 025 Discontinued insulin glargine,hum.r ec.anlog (Basaglar KwikPen U-100 Insulin) 100 unit/mL (3 mL) injection pen Inject 22-24 Units under the skin 1 (one) time each day. 08/02/20 24 025 Discontinued(Re order) insulin aspart, niacinamide, (Fiasp FlexTouch U-100 Insulin) 100 unit/mL (3 mL) injection pen Inject 4-6 Units under the skin 3 (three) times a day before meals. 08/02/20 24 025 Discontinued(Re order) blood-glucose sensor (FreeStyle Jamil 3 Plus Sensor) deviceIndicati ons:Jamil 3 not available Box = Kit = EA. Use 1 sensor every 2 weeks. 6 each 2 09/19/20 24 025 Discontinued(Re order) insulin glargine,hum.r ec.anlog (Basaglar KwikPen U-100 Insulin) 100 unit/mL (3 mL) injection pen Inject under the skin. 025 Discontinued(Du plicate order) metFORMIN (GLUCOPHAGE) 500 mg tablet Take 1 tablet (500 mg total) by mouth 3 (three) times a day. 025 Discontinued(Du plicate order) Active Problems Problem Noted Date Diagnosed Date Hereditary hemochromatosis 08/31/2024 Lumbar radiculopathy 06/23/2023 Acute pancreatitis 05/04/2023 Overview (09/27/2024): [facility] History of 2019 novel coronavirus disease (COVID -19) 07/19/2022 Diabetes mellitus type 2 with neurological manif estations 09/18/2020 Diabetic neuropathy 09/18/2020 Deviated septum 11/21/2016 Umbilical hernia 11/21/2016 IBS (irritable bowel syndrome) 02/19/2013 Overview (09/27/2024): Diarrhea predominant, onset 2010. Post-op pain 02/10/2011 Dysuria 01/31/2011 Hyperlipidemia 08/06/2010 Acne 07/13/2010 Encounters Date Type Department Care Team Description 12/17/2024 6:56 AM EST - 12/17/2024 11:59 PM EST Hospital Encounter [facility] Pain Management [address] [place] [address] Jovanny Kennedy MD Radiculopathy, lumbar region Discharge Disposition: Home or Self Care 12/17/2024 6:00 AM EST - 12/17/2024 11:59 PM EST Hospital Encounter [facility] Xray [address] [place] [address] Pain Discharge Disposition: Home or Self Care 12/06/2024 9:15 AM EST Office Visit [facility] Hematology Oncology [address] [place] [address] Kade Le MD Hereditary hemochromatosis (CMS/HCC) (Primary Dx) 11/29/2024 9:20 AM EST Office Visit Endocrinology [address] [phone] Jazmin Valera PA 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); Hyperlipidemia, unspecified hyperlipidemia type 11/01/2024 9:44 AM EST - 11/01/2024 11:59 PM EST Hospital Encounter [facility] MRI [address] [place] [address] Discharge Disposition: Home or Self Care 10/25/2024 11:00 AM EST Ancillary Procedure [facility] [address] [place] [address] [place] [phone] Hemochromatosis, unspecified 10/07/2024 Telephone [facility] Hematology Oncology [address] [place] [address] [place] Echo/ Abdomen MRI from Last 3 Months [...] (CMS/HCC) DX:D iabetes mellitus (HCC) Pancreatitis DX:Pancreatitis Depression Hard to intubate Family History Medical History Relation Name Comments [...] Orientation Straight 12/17/2024 6: 54 AM EST Obstetrics History Last Filed Vital Signs Vital [...] Mass Index 24.33 12/17/2024 7:23 AM EST Plan of Treatment Upcoming Encounters Date Type Department Care Team (Late st Contact Info) Description 02/28/2025 9:00 AM EDT Office Visit [facility] Hematology Oncology [address] [place] [address] Kade Le MD [address] [place] [address] 03/28/2025 9:40 AM EDT Office Visit Endocrinology - [place] [address] [place] [address] Jazmin Valera PA [address] [place] [address] Health Maintenance Due Date Last Done Comments Hepatitis B Vaccines (1 of 3 - 19+ 3-dose series) 1997 Pneumococcal Vaccine: Pediatrics (0 to 5 Years) and At-Risk Patients (6 to 64 Years) (2 of 2 - PCV) 03/27/2020 03/27/2019 Depression Screening 10/22/2022 Hepatitis C Screening 10/22/2022 Social Influencers of Health Screening 10/22/2022 Diabetes: Annual Foot Exam 04/26/2024 04/26/2023 COVID-19 Vaccine (2023-2 5 season) 2024 Influenza Vaccine (#1) 2024 , 11/21/2016 Diabetes: Blood Sugar Contro l Test [...] patient's age to complete this topic Meningococcal B Vacine Aged Out No lo nger eligible based on patient's age to complete this topic RSV Immunization Patients Under 20 months Aged Out No longer eligible b ased on patient's age to complete this topic Varicella Vaccines Aged Out No longer eligible based on patient's age to complete this topic Procedures Procedure Name Priority Date/Time Associated Diagnosis Comments XR FLUORO UP TO 1 HOUR Routine 7:48 AM EST Pain MR ABDOMEN WO AND W CONTRAST Routine [...] Recently Relevant to Health Maintenance Results * XR Fluoro Up To 1 [...] Signed Date: 12/17/2024 13:20 ET Workstation ID: [id number] Transcribed By: Self Edit Transcribed Date: 12/17/2024 [...] Signed Date: 12/17/2024 13:20 ET Workstation ID: [id number] Transcribed By: Self Edit Transcribed Date: 12/17/2024 13:15 ET us Jovanny Kennedy MD IMG FLUOROSCOPY PROCEDURES Fin al Result * MR Abdomen wo and w Contrast [...] Signed Date: 11/01/2024 16:00 ET Workstation ID: [id number] Transcribed By: Self Edit Transcribed Date: 11/01/2024 [...] Signed Date: 11/01/2024 16:00 ET Workstation ID: [id number] Transcribed By: Self Edit Transcribed Date: 11/01/2024 15:11 ET Kade Le MD IMG MRI PROCEDURES Final Re sult * (ABNORMAL) TRANSTHORACIC ECHOCARDIOGRAM (TTE) COMPLETE (10/25/2024 11:43 AM EST) Left Atrium Minor [place] 4.5 cm CV PACS Left Atrium Major [place] 5.0 cm CV PACS LA Area Sys [...] S' 12 cm/s CV PACS RA Major [place] 4.7 cm CV PACS RA Major [place] Index 2.5 2.1 - 2.7 cm/m2 CV [...] was adequate. Additional technique includes myocardial strain. Result [facility] Kade Le MD CV ECHO PROCEDURES Final Re sult * Urine Albumin Creatinine Ratio (07/05/2024) [facility] Urine Albumin Creatinine Ratio abstracted Result [facility] HEALTH MAINTENANCE Final Result * Annual BMP Blood Test (07/05/2024) [facility] Annual BMP Blood Test abstracted Result [facility] HEALTH MAINTENANCE Final Result * Hemoglobin A1c (07/05/2024) [facility] Hemoglobin A1C 5.5 <=6.5 % Blood Venous blood specimen / Unknown Result [facility] LAB BLOOD ORDERABLES Nadya l Result * (ABNORMAL) Lipid panel (07/05/2024) [facility] LDL/HDL Ratio 2 0 - 4 Triglycerides 169(A) 0 - 150 mg/dL Cholesterol 112 0 - 200 mg/dL HDL 52 >=40 mg/dL LDL Cholesterol 27 0 - 100 mg/dL Blood Venous blood specimen / Unknown us Historical Provider LAB BLOOD ORDERABLES Nadya l Result * Diabetes Eye Exam (07/04/2024) Pathologist [facility] Diabetes: Annual Retina Eye Exam abstracted Historical Provider HEALTH MAINTENANCE Final Result * Diabetes Foot Exam (04/26/2023) Pathologist [facility] Diabetes: Annual Foot Exam abstracted Result [facility] Provider HEALTH MAINTENANCE Final Result * Colonoscopy (12/18/2020) Pathologist [facility] Colonoscopy no inperatati on,abstact ed Anatomical Region Laterality Modality Other Result [facility] Historical Provider HEALTH MAINTENANCE Final Result * HIV Screening (04/15/2015) Pathologist [facility] HIV Screening abstracted [facility] Provider HEALTH MAINTENANCE Final Result from Last 3 Months or Most Recently Relevant to Health Maintenance [place] [id number] [employer] Care Teams Rough Rib Grader Relationship Specialty Start Date End Date Earnest Dorado PA [address] [place] [address] PCP - General Internal Medicine 10/09/24
--- OUTSIDE RECORDS SUMMARY | 2024-12-27 09:06 | XMS_ITS | Encounter Summary ---
Author Organization [facility] [place] [address] Care Team Providers Care Cigar Maker Name Role Phone Earnest Dorado Primary Care Provider [phone] Reason for Visit * Reason Comments Diabetes Encounter Details Date Type Department Care Team (Late st Contact Info) Description 11/29/2024 9:20 AM EST Office Visit Endocrinology - [place] [address] [place] [address] Jazmin Valera PA [address] [place] [address] Diabetes mellitus type 2 with neurological manifestations [...] in this encounter Ordered Prescriptions Prescription Sig Dispense Quantity Refills Last Filled Start Date End Date blood-glucose sensor (FreeStyle Jamil 3 Plus Sensor) deviceIndications:L ibre 3 not available Box = Kit = EA. Use 1 sensor every 2 weeks. 6 each 2 11/29/2024 insulin aspart, niacinamide, (Fiasp FlexTouch U-100 Insulin) 100 unit/mL (3 mL) injection pen Inject 4-6 Units under the skin 3 (three) times a day before meals. 15 mL 2 11/29/2024 insulin glargine,hum.rec.an log (Basaglar KwikPen U-100 Insulin) 100 unit/mL (3 [...] dietary choices, active during the day. Using ajmil 3: 7 day average: 160 14 day [...] Problem List Diagnosis Date Noted Hereditary hemochromatosis ([facility]/HCC) 08/31/2024 Lumbar radiculopathy 06/23/2023 Acute pancreatitis 05/04/2023 History of 2019 novel coronavirus disease (COVID-19) 07/19/2022 Diabetes mellitus type 2 with neurological manifestations ([facility]) 09/18/2020 Diabetic neuropathy ([facility]) 09/18/2020 Deviated septum 11/21/2016 Umbilical hernia 11/21/2016 [...] Diabetes mellitus type 2 with neurological manifestations (CMS/[facility]) 2. Hyperlipidemia, unspecified hyperlipidemia type PLAN: Diabetes: [...] Description 02/28/2025 9:00 AM EDT Office Visit [facility] Hematology Oncology [address] [place] [phone] Kade Le MD [address] [place] [address] 03/28/2025 9:40 AM EDT Office Visit Endocrinology - [address] [address] Jazmin Valera PA [address] [place] [address] Scheduled Orders Name Type Priority Associated Diagnoses Orde r Schedule Hemoglobin A1c Lab Routine Diabetes mellitus type 2 with neurological manifestations (CMS/HCC) Expected: 11/29/2024, Expires: 11/29/2025 Lipid panel with [...] documented as of this encounter Care Teams Cigar Maker Relationship Specialty Start Date End Date Earnest Dorado PA [address] [place] [address] PCP - General Internal Medicine 10/09/24 documented as of this encounter
== END 2024-12-27 08:50 | disposition home or self-care (01) ==
LOC: HO.BBR 08:49
PROVIDERS: PCP Physician Assistant Medical; Visit Provider Internal Medicine Hematology & Oncology
DX: Z13.89 Encounter for screening for other disorder (principal)

== ENCOUNTER 2025-01-09 08:49 | Outpatient (REF) | payer OTHER, SELFPAY ==
--- OUTSIDE RECORDS SUMMARY | 2025-01-09 09:23 | XMS_ITS | Encounter Summary ---
Author Organization [facility] Address [address] [place] [address] Care Team Providers Care Building Maintenance Superintendent Name Role Phone Joseph Domingo MD Primary Care Provider Derik Hoffmann MD Primary Care Provider Psychiatric, Pcp Primary Care Provider Dustin Allen MD Primary Care Provider [phone] Earnest Dorado PA-C Primary Care Provider Encounter Details Date Type Department Care Team Description 01/25/2011 Hospital Medical Records [address] [place] [address] Justin Patrick MD [address] [place] [phone] Social History Tobacco Use Types Packs/Day Years Used Date Smoking Tobacco: Former Cigarettes 0.3 5 Q uit: 11/13/2005 Smokeless Tobacco: Never Alcohol Use Standard Drinks/Week Comments Not Currently 0.8 (1 standard drink = 0.6 oz p ure alcohol) occ Sex Assigned at Date Recorded Male 04/27/2021 8:52 AM E DT Job Start Date Occupation Industry Not on file Not on file Not on file documented as of this encounter Plan of Treatment Not on file documented as of this encounter Visit Diagnoses Not on filedocumented in this encounter Care Teams Building Maintenance Superintendent Relationship Specialty Start Date End Date Joseph Domingo MD PCP - General 07/12/10 11/12/14 Derik Kaminski MD PCP - General Internal Medicine 11/17/14 10/25/15 [facility], Pcp PCP - General Internal Medicine 10/26/15 09/20/16 Dustin Price MD [address] [place] [address] PCP - General Internal Medicine 09/21/16 02/22/21 Earnest Dorado PA-C [address] [place] [address] PCP - General Internal Medicine 02/23/21 documented as of this encounter
--- OUTSIDE RECORDS SUMMARY | 2025-01-09 09:23 | XMS_ITS | Encounter Summary ---
[facility] Organization [facility] Address [address] [place] [address] Care Team Providers Care Metal Tank Erector Name Role Phone Dustin Price MD Primary Care Provider + [phone] Earnest Dorado PA-C Primary Care Provider [phone] Reason for Visit * Reason Onset Date Comments refill request 07/22/2019 Encounter Details Date Type Department Care Team Description 07/22/2019 Refill Gastroenterology - [address] [place] [phone] Angel Finley MD refill request Social History Tobacco Use Types Packs/Day Years Used Date Smoking Tobacco: Former Cigarettes 0.3 5 Q uit: 11/13/2005 Smokeless Tobacco: Never Alcohol Use Standard Drinks/Week Comments Yes 0.8 (1 standard drink = 0.6 oz p ure alcohol) 1 per week Sex Assigned at Date Recorded Male 04/27/2021 8:52 AM E DT Job Start Date Occupation Industry Not on file Not on file Not on file documented as of this encounter Plan of Treatment Not on file documented as of this encounter Visit Diagnoses Not on filedocumented in this encounter Care Teams Metal Tank Erector Relationship Specialty Start Date End Date Dustin Price MD [address] [place] [address] PCP - General Internal Medicine 09/21/16 02/22/21 Earnest Dorado PA-C [address] [place] [address] [phone] PCP - General Internal Medicine 02/23/21 documented as of this encounter
--- OUTSIDE RECORDS SUMMARY | 2025-01-09 09:23 | XMS_ITS | Encounter Summary ---
[facility] Address [address] [place] [address] Care Team Providers Care Knuckler Name Role Phone Joseph Domingo MD Primary Care Provider Derik Hoffmann MD Primary Care Provider [facility], Pcp Primary Care Provider Dustin Allen MD Primary Care Provider + [phone] Earnest Dorado PA-C Primary Care Provider Encounter Details Date Type Department Care Team Description 01/26/2011 Hospital Medical Records [address] [place] [address] Justin Patrick MD [address] [place] [address] [id number] Social History Tobacco Use Types Packs/Day Years [...] on filedocumented in this encounter Care Teams Knuckler Relationship Specialty Start Date End Date Joseph Domingo MD PCP - General 07/12/10 11/12/14 Derik Kaminski MD PCP - General Internal Medicine 11/17/14 10/25/15 [facility], Pcp PCP - General Internal Medicine 10/26/15 09/20/16 Dustin Price MD [address] [place] [address] PCP - General Internal Medicine 09/21/16 02/22/21 Earnest Dorado PA-C [address] [place] [address] PCP - General Internal Medicine 02/23/21 documented as of this encounter
--- OUTSIDE RECORDS SUMMARY | 2025-01-09 09:23 | XMS_ITS | Encounter Summary ---
[facility] Organization [facility] Address [address] [place] [address] Care Team Providers Care School Occupational Therapist Name Role Phone Joseph Domingo MD Primary Care Provider Derik Hoffmann MD Primary Care Provider [facility], Pcp Primary Care Provider Dustin Allen MD Primary Care Provider [phone] Earnest Dorado PA-C Primary Care Provider [phone] Encounter Details Date Type Department Care Team Description 07/14/2014 Mumps Developer Report Medical Records [address] [place] [address] Owen Sharma Social History Tobacco Use Types Packs/Day Years Used Date Smoking Tobacco: Former Cigarettes 0.3 5 Q uit: 11/13/2005 Smokeless Tobacco: Never Alcohol Use Standard Drinks/Week Comments Yes 2.5 (1 standard drink = 0.6 oz p ure alcohol) 15 drinks per yr Sex Assigned at Date Recorded Male 04/27/2021 8:52 AM E DT Job Start Date Occupation Industry Not on file Not on file Not on file documented as of this encounter Plan of Treatment Not on file documented as of this encounter Visit Diagnoses Not on filedocumented in this encounter Care Teams School Occupational Therapist Relationship Specialty Start Date End Date Joseph Domingo MD PCP - General 07/12/10 11/12/14 Derik Kaminski MD PCP - General Internal Medicine 11/17/14 10/25/15 [facility], Pcp PCP - General Internal Medicine 10/26/15 09/20/16 Dustin Price MD [address] [place] [address] PCP - General Internal Medicine 09/21/16 02/22/21 Earnest Dorado PA-C [address] [place] [address] PCP - General Internal Medicine 02/23/21 documented as of this encounter
--- OUTSIDE RECORDS SUMMARY | 2025-01-09 09:23 | XMS_ITS | Encounter Summary ---
Author Organization [facility] Address [address] [place] [address] Care Team Providers Care Data Analytics Analyst Name Role Phone Dustin Price MD Primary Care Provider + [phone] Earnest Dorado PA-C Primary Care Provider [phone] Encounter Details Date Type Department Care Team Description 06/18/2019 Pt. Non Urgent Medic al Question Physiatry - [address] [address] Burton Parmar PA-C Social History Tobacco Use Types Packs/Day Years [...] on filedocumented in this encounter Care Teams Data Analytics Analyst Relationship Specialty Start Date End Date Dustin Price MD [address] [place] [address] [phone] PCP - General Internal Medicine 09/21/16 02/22/21 Earnest Dorado PA-C [address] [place] [address] [phone] PCP - General Internal Medicine 02/23/21 documented as of this encounter
--- OUTSIDE RECORDS SUMMARY | 2025-01-09 09:23 | XMS_ITS | Encounter Summary ---
Author Organization [facility] Address [address] [place] [address] Care Team Providers Care Expert Medical Writer Name Role Phone Dustin Price MD Primary Care Provider [phone] Earnest Dorado PA-C Primary Care Provider [phone] Encounter Details Date Type Department Care Team Description 08/06/2019 Returner Report Medical Records [address] [place] [address] Clifford Tavares MD, PHD Social History Tobacco Use Types Packs/Day Years [...] on filedocumented in this encounter Care Teams Expert Medical Writer Relationship Specialty Start Date End Date Dustin Price MD [address] [place] [address] PCP - General Internal Medicine 09/21/16 02/22/21 Earnest Dorado PA-C [address] [place] [address] PCP - General Internal Medicine 02/23/21 documented as of this encounter
--- OUTSIDE RECORDS SUMMARY | 2025-01-09 09:23 | XMS_ITS | Encounter Summary ---
Author Organization [facility] Address [address] [place] [address] Care Team Providers Care Hospice Executive Director Name Role Phone Dustin Price MD Primary Care Provider + [phone] Earnest Dorado PA-C Primary Care Provider [phone] Encounter Details Date Type Department Care Team Description 07/06/2017 Telephone Adult Medicine [address] [phone] Dustin Price MD [address] [place] [address] [phone] Social History Tobacco Use Types Packs/Day Years [...] on file documented as of this encounter Miscellaneous Notes * Telephone Encounter - Aleta Humphries R.N. - 07/06/2017 9:07 AM EDT [phone] (home) [phone] (work) Pt brought into holding area, explained to patient about the penicillin G injection. Pt given one injection to rt buttocks 1,200,000units per 2 ml and one injection to lt buttocks 1,200,000 units per 2 ml. Pt instructed to wait 20 minutes. documented in this encounter Plan of Treatment Not on file documented as of this encounter Procedures Procedure Name Priority Date/Time Associated Diagnosis Comments PENICILLIN G BENZATHINE INJ Routine 07/06/2017 9:33 AM EDT Syphilis documented in this encounter Visit Diagnoses Diagnosis Syphilis Syphilis, unspecified documented in this encounter Administered Medications Administered Medications Medication Order MAR Action Action Date Dose Rate Site Penicillin G Benzathine Inj Intramuscular Given 07/06/2017 2,400,000 Units R Buttock documented in this encounter Care Teams Hospice Executive Director Relationship Specialty Start Date End Date Dustin Price MD [address] [place] [address] PCP - General Internal Medicine 09/21/16 02/22/21 Earnest Dorado PA-C [address] [place] [address] PCP - General Internal Medicine 02/23/21 documented as of this encounter
--- OUTSIDE RECORDS SUMMARY | 2025-01-09 09:23 | XMS_ITS | Encounter Summary ---
Author Organization [facility] Address [address] [place] [address] Care Team Providers Care Senior Publications Specialist Name Role Phone Joseph Domingo MD Primary Care Provider Derik Hoffmann MD Primary Care Provider [facility] Pcp Primary Care Provider Dustin Allen MD Primary Care Provider [phone] Earnest Dorado PA-C Primary Care Provider [phone] Reason for Visit * Reason Onset Date Comments TEST RESULTS 04/04/2012 Encounter Details Date Type Department Care Team Description 04/04/2012 Telephone Adult [address] [address] Joseph Domingo MD TEST RESULTS Social History Tobacco Use Types Packs/Day Years Used Date Smoking Tobacco: Former Cigarettes 0.3 5 Q uit: 11/13/2005 Smokeless Tobacco: Never Alcohol Use Standard Drinks/Week Comments Yes 2.5 (1 standard drink = 0.6 oz p ure alcohol) 10 drinks per yr Sex Assigned at Date Recorded Male 04/27/2021 8:52 AM E DT Job Start Date Occupation Industry Not on file Not on file Not on file documented as of this encounter Miscellaneous Notes * Telephone Encounter - Kylie Ivory M.A. - 04/05/2012 4:33 PM EDT I have attempted to contact this patient by phone, but line is busy. I will continue to try later. * Telephone Encounter - Earnest Dorado PA-C - 04/05/2012 8:14 AM EDT No results yet. Please inform the patient. Earnest Dorado PA-C * Telephone Encounter - Jeannette Dubon - 04/04/2012 3:19 PM EDT Inform patient: ANY URGENT OR ABNORMAL RESULTS WIILL RESULT IN A CALL BACK TO THE PATIENT RUPALI. Type of test: :Strep Test Results Date test was performed: 04/03/2012 Where was the test performed: [facility] Who ordered this test?: Earnest Dorado PA-C Is the doctor here today?: YES Can the message wait until the doctor returns?: NO IF PATIENT'S PCP IS NOT IN INSTRUCT PATIENT THAT THEY WILL RECEIVE A CALL BACK WHEN THE PCP IS IN THE OFFICE NEXT. documented in this encounter Plan of Treatment Not on file documented as of this encounter Visit Diagnoses Not on filedocumented in this encounter Care Teams Senior Publications Specialist Relationship Specialty Start Date End Date Joseph Domingo MD PCP - General 07/12/10 11/12/14 Derik Kaminski MD PCP - General Internal Medicine 11/17/14 10/25/15 [facility] Pcp PCP - General Internal Medicine 10/26/15 09/20/16 Dustin Price MD [address] [place] [address] PCP - General Internal Medicine 09/21/16 02/22/21 Earnest Dorado PA-C [address] [place] [address] PCP - General Internal Medicine 02/23/21 documented as of this encounter
--- OUTSIDE RECORDS SUMMARY | 2025-01-09 09:23 | XMS_ITS | Encounter Summary ---
[facility] Address [address] [place] [address] Care Team Providers Care Terrazzo Helper Name Role Phone Dustin Price MD Primary Care Provider [phone] Earnest Dorado PA-C Primary Care Provider [phone] Encounter Details Date Type Department Care Team Description 08/06/2019 Crisis Counselor Report Medical Records [address] [place] [address] Clifford Tavares MD, PHD Social History Tobacco [...] on filedocumented in this encounter Care Teams Terrazzo Helper Relationship Specialty Start Date End Date Dustin Price MD [address] [place] [address] PCP - General Internal Medicine 09/21/16 02/22/21 Earnest Dorado PA-C [address] [place] [address] PCP - General Internal Medicine 02/23/21 documented as of this encounter
--- OUTSIDE RECORDS SUMMARY | 2025-01-09 09:24 | XMS_ITS | Encounter Summary ---
Author Organization [facility] [place] [address] Care Team Providers Care Preparation Department Supervisor Name Role Phone Earnest Dorado Primary Care Provider [phone] Encounter Details Date Type Department Care Team (Latest Contact Info) Description 12/17/2024 6:00 AM EST - 12/17/2024 11:59 PM EST Hospital Encounter [facility] Xray [address] [place] [address] Pain Discharge Disposition: Home or Self Care [...] mouth 1 (one) time each day. 08/02/2024 5 documented as of this encounter Discharge Disposition Disposition Code Departure Means Destination Home or Self Care documented in this encounter Plan of Treatment Upcoming Encounters Date Type Department Care Team (Late st Contact Info) Description 02/28/2025 9:00 AM EDT Office Visit [facility] Hematology Oncology [address] [place] [phone] Kade Le MD [address] [place] [phone] 03/28/2025 9:40 AM EDT Office Visit Endocrinology - [place] [address] [place] [address] Jazmin Valera PA [address] [place] [address] documented as of this encounter Procedures Procedure [...] Signed Date: 12/17/2024 13:20 ET Workstation ID: [id number] Transcribed By: Self Edit Transcribed Date: 12/17/2024 [...] Signed Date: 12/17/2024 13:20 ET Workstation ID: [id number] Transcribed By: Self Edit Transcribed Date: 12/17/2024 13:15 ET us Jovanny Kennedy MD IMG FLUOROSCOPY PROCEDURES Fin al Result documented in this encounter Visit Diagnoses Diagnosis Pain Generalized pain documented in this encounter Care Teams Preparation Department Supervisor Relationship Specialty Start Date End Date Earnest Dorado PA [address] [place] [address] PCP - General Internal Medicine 10/09/24 documented as of this encounter
--- OUTSIDE RECORDS SUMMARY | 2025-01-09 09:24 | XMS_ITS | Encounter Summary ---
Author [facility] Address [address] [place] [address] Care Team Providers Care Tube Builder Airplane Name Role Phone Earnest Dorado PA-C Primary Care Provider [phone] Encounter Details Date Type Department Care Team Description 09/29/2023 CGM Report Medical Records [address] [place] [address] Abstract, Provider Social History Tobacco Use Types Packs/Day Years [...] on filedocumented in this encounter Care Teams Tube Builder Airplane Relationship Specialty Start Date End Date Earnest Dorado PA-C [address] [place] [address] PCP - General Internal Medicine 02/23/21 documented as of this encounter
--- OUTSIDE RECORDS SUMMARY | 2025-01-09 09:24 | XMS_ITS | Clinical Summary ---
Author Organization [facility] Address [address] [place] [address] Care Team Providers Care Railroad Mechanic Name Role Phone Earnest Dorado PA-C Primary Care Provider [phone] Allergies Active Allergy Reactions Severity Noted Date Comments Erythromycin 11/21/2016 Medications Medication Sig Dispensed Refills Start Date End Date Status oxycodone-acetamino phen (PERCOCET) 5-325 MG per tablet Take 1 Tablet by mouth every 8 hours as needed for Pain. 21 Tablet 0 05/18/2023 Active Insulin Pen Needle (B-D ULTRAFINE III SHORT PEN) 31G X 8 MM Misc Use with insulin pen four times daily 400 Each 2 10/12/2023 Active Continuous Blood Gluc Sensor (FreeStyle Jamil 3 Sensor) MiscIndications:Aaliyah betes mellitus type 2 with neurological manifestations (HCC) 1 Each by Does not apply route every 14 days. 2 Each 11 10/12/2023 Active omeprazole (PRILOSEC) 20 MG capsule Take 1 Capsule by mouth daily for 360 days. 90 Capsule 1 05/07/2024 5 Active sertraline (ZOLOFT) 50 MG tablet Take 1 Tablet by mouth daily. Take 1/2 tab daily for 1 week, then increase to 1 tab daily. 30 Tablet 0 08/02/2024 Active metformin (GLUCOPHAGE-XR) 500 MG 24 hr tablet Take 2 tablets twice daily with food. 180 Tablet 3 08/02/2024 Active Insulin Glargine (Basaglar KwikPen) 100 UNIT/ML Solution Pen-injectorIndicat ions:Diabetes mellitus type 2 with neurological manifestations (HCC) Inject 22-24 Units into the skin 3 times daily. ADMINISTER 22 TO 24 UNITS UNDER THE SKIN EVERY MORNING 15 mL 3 08/02/2024 Active Insulin Aspart, w/Niacinamide, (Fiasp FlexTouch) 100 UNIT/ML Solution Pen-injector Inject 4-6 Units into the skin 3 times daily. 15 mL 2 08/02/2024 Active fluticasone 50 MCG/ACT nasal spray SHAKE LIQUID AND USE 2 SPRAYS IN EACH NOSTRIL DAILY 48 g 1 08/06/2024 Active atorvastatin (LIPITOR) 80 MG tabletIndications:T ype 2 diabetes mellitus without complication, without long-term current use of insulin (HCC) TAKE 1 TABLET BY MOUTH DAILY 90 Tablet 3 09/06/2024 Active Empagliflozin (Jardiance) 10 MG TabIndications:Diab etes mellitus type 2 with neurological manifestations (HCC) Take 1 Tablet by mouth every morning (before breakfast). 30 Tablet 1 04/28/2023 3 Discontinue d(discontin ued) Active Problems Problem Noted Date Hereditary hemochromatosis 02/08/2024 Lumbar radiculopathy 06/23/2023 Acute pancreatitis 05/04/2023 Overview: [facility] ER History of 2019 novel coronavirus diseas e (COVID-19) 07/19/2022 Diabetic neuropathy 09/18/2020 Diabetes mellitus type 2 with neurologic al manifestations 09/18/2020 Deviated septum 11/21/2016 Umbilical hernia 11/21/2016 IBS (irritable bowel syndrome) 3 Overview: Diarrhea predominant, onset 2010. History of colon polyps 05/02/2012 Overview: Colonoscopy 04/30/2012: Pathology: Random biopsies normal, the polyp was a tubular adenoma. He should have colonoscopy again in 5 years. 12/18/2020: Negative colonoscopy 12/18/2020, no colon cancer screening needed for 10 years. Post-op pain 02/10/2011 Dysuria 01/31/2011 Hyperlipidemia 08/06/2010 Acne 07/13/2010 Resolved Problems Problem Noted Date Resolved Date Type 2 diabetes mellitus wit hout complication, without long-term current use of insulin 11/22/2016 11/04/2022 Tubular adenoma 11/21/2016 12/18/2020 Appendicitis 01/31/2011 10/09/2019 Loose stools 08/04/2010 02/19/2013 Rectal bleeding 08/04/2010 02/19/2013 Immunizations Name Administration Dates Next Due Influenza (> 6 Months) 11/21/2016 Influenza Vaccine-preservati ve Free-quadrivalent 4 Years 09/18/2020 Pneumoccoccal(Adult) Polysaccharide PPSV23 03/27 TD (STATE SUPPLIED FOR ADULTS AND CHILDREN) 04/2020 Tdap 08/04/2010 Family History Medical History Relation Name Comments unknown Brother 1 vascular disease Brother 2 CA of Bladder Father nonsmoker unknown Mother CA of Pancreas Uncle CA Colon Negative Hx Relation Name Status Comments Brother 1 Alive good health Brother 2 Alive good health Father Alive Mother Alive htn, estranged Paternal Grandfather Paternal Grandmother (Age 70) ca ncer, uncertain of type Uncle Alive Social History Tobacco Use Types Packs/Day Years Used Date Smoking Tobacco: Former Cigarettes 0.3 5 Q uit: 11/13/2005 Smokeless Tobacco: Never Tobacco Cessation:Counseling Given: [...] Sign Reading Time Taken Comments Blood Pressure 112/82 08/02/2024 10:23 AM EDT C Pulse 66 08/02/2024 10:23 AM EDT Temperature 36.3 ??C (97.3 ??F) 08/02/2024 10:23 AM E DT Respiratory Rate 14 07/05/2024 8:48 AM EDT Oxygen Saturation 98% 08/02/2024 10:23 AM EDT Inhaled Oxygen Concentration - - Weight 70.8 kg (156 lb) 08/02/2024 10:23 AM EDT Height 172.7 cm (5' 8 ) 08/02/2024 10:23 AM EDT Body Mass Index 23.72 08/02/2024 10:23 AM EDT Plan of Treatment Health Maintenance Due Date Last Done Comments Covid-19 Vaccine (#1) 05/26/1981 DIABETES: ANNUAL FOOT EXAM 04/26/202404/263, 04/22/2022, 09/18/2020, Additional history exists INFLUENZA (#1) 2024 09/18/2020, 07/2019 (Refused), 11/21/2016 DIABETES: BLOOD SUGAR CONTRO L TEST (HGBA1C) 10/05/2024 07/05/2024, 01/25/2024, 01/25/2024, Additional history exists DIABETES: ANNUAL EYE EXAM 07/04/20252023 (External Completion), 07/19/2022 (External Completion), 10/23/2019 (External Completion of test per patient (Patient reports normal results)) DIABETES/HEART DISEASE: NAYELI AL CHOLESTEROL (LDL) 07/05/2025 07/05/2024, 01/25/2024, 04/13/2023, Additional history exists DIABETES: ANNUAL URINE PROTE IN TEST (MICROALBUMIN) 07/05/2025 07/05/2024, 01/25/2024, 04/13/2023, Additional history exists BASELINE HEALTH EXAM 40-64 01/24/202601/24, 06/23/2023, 09/18/2020, Additional history exists DTAP/TDAP/TD (3 - Td or Tdap) 09/18/2030 09/18/2020, 08/04/2010 COLON CANCER SCREENING 12/18/2030 (Completed), 12/18/2020, 04/30/2012, Additional history exists PNEUMOCOCCAL VACCINE FOR HIG H RISK PATIENTS (#2) 2043 03/27/2019 Care Teams Railroad Mechanic Relationship Specialty Start Date End Date Earnest Dorado PA-C [address] [place] [address] PCP - General Internal Medicine 02/23/21
--- OUTSIDE RECORDS SUMMARY | 2025-01-09 09:24 | XMS_ITS | Encounter Summary ---
Author Organization [facility] Address [address] [place] [address] Care Team Providers Care Supervisor Corduroy Cutting Name Role Phone Earnest Dorado PA-C Primary Care Provider [phone] [phone] Encounter Details Date Type Department Care Team Description 11/20/2021 Pt. Non Urgent Medical Question Adult Medicine [address] [phone] Earnest Dorado PA-C [address] [place] [address] [phone] Social History Tobacco Use Types Packs/Day Years [...] Miscellaneous Notes * Telephone Encounter - Kylie Burgess - 11/22/2021 7:01 AM ESTFrom: Toan Hussein To: Tesha Dorado Sent: 11/20/2021 11:16 AM EST Subject: Antibody Hi Maldonado, Just an update, still no call. I know you said it could be a day or 2 so i just wamted to keep u inthe loop. documented in this encounter Plan of Treatment Not on file documented as of this encounter Visit Diagnoses Not on filedocumented in this encounter Care Teams Supervisor Corduroy Cutting Relationship Specialty Start Date End Date Earnest Dorado PA-C [address] [place] [address] PCP - General Internal Medicine 02/23/21 documented as of this encounter
--- OUTSIDE RECORDS SUMMARY | 2025-01-09 09:24 | XMS_ITS | Encounter Summary ---
Author Organization [facility] Address [address] [place] [address] Care Team Providers Care Second Steward Name Role Phone Earnest Dorado PA-C Primary Care Provider +[phone] Encounter Details Date Type Department Care Team Description 06/16/2023 CGM Report Medical Records [address] [place] [address] Abstract, Provider Social History Tobacco Use Types [...] on filedocumented in this encounter Care Teams Second Steward Relationship Specialty Start Date End Date Earnest Dorado PA-C [address] [place] [address] PCP - General Internal Medicine 02/23/21 documented as of this encounter
--- OUTSIDE RECORDS SUMMARY | 2025-01-09 09:24 | XMS_ITS | Encounter Summary ---
[facility] Address [address] [place] [address] Care Team Providers Care Specimen Boss Name Role Phone Earnest Dorado PA-C Primary Care Provider +[phone] Encounter Details Date Type Department Care Team Description 09/07/2023 Refill Endocrinology - [address] [address] Jazmin Valera PA-C [address] [place] [address] Social History Tobacco Use Types Packs/Day Years [...] on filedocumented in this encounter Care Teams Specimen Boss Relationship Specialty Start Date End Date Earnest Dorado PA-C [address] [place] [address] [phone] PCP - General Internal Medicine 02/23/21 documented as of this encounter
--- OUTSIDE RECORDS SUMMARY | 2025-01-09 09:24 | XMS_ITS | Encounter Summary ---
Author Organization [facility] Address [address] [place] [address] Care Team Providers Care Refrigeration Service Technician Name Role Phone Dustin Price MD Primary Care Provider + [phone] Earnest Dorado PA-C Primary Care Provider [phone] Reason for Visit * Reason Onset Date Comments Prior Authorization 04/15/2019 Encounter Details Date Type Department Care Team Description 04/15/2019 Telephone Physiatry - [address] [address] Artur Crocker DO Prior Authorization Social History Tobacco Use Types Packs/Day Years [...] encounter Miscellaneous Notes * Telephone Encounter - Addie Barboza M.A. - 04/17/2019 9:17 AM EDT Message left for [facility] prior auth. department to fax approval to [phone] * Telephone Encounter - Addie Barboza M.A. - 04/15/2019 12:51 PM EDT Message left for madhuri from [facility] to call me back * Telephone Encounter - Azul Atkinson - 04/15/2019 11:52 AM EDT Madhuri is calling regarding patients prior Auth he states that it is approved. He would like to knowwhy it has to be done at the [facility] and not in office. Please review and advise. documented in this encounter Plan of Treatment Not on file documented as of this encounter Visit Diagnoses Not on filedocumented in this encounter Care Teams Refrigeration Service Technician Relationship Specialty Start Date End Date Dustin Price MD [address] [place] [address] PCP - General Internal Medicine 09/21/16 02/22/21 Earnest Dorado PA-C [address] [place] [address] PCP - General Internal Medicine 02/23/21 documented as of this encounter
--- OUTSIDE RECORDS SUMMARY | 2025-01-09 09:24 | XMS_ITS | Encounter Summary ---
Author Organization [facility] Address [address] [place] [address] Care Team Providers Care Punch Out Crew Member Name Role Phone Dustin Price MD Primary Care Provider + [phone] Earnest Dorado PA-C Primary Care Provider [phone] Encounter Details Date Type Department Care Team Description 04/15/2019 Pt. Non Urgent Medic al Question Physiatry - [address] [address] Artur Crocker DO Social History Tobacco Use Types Packs/Day Years [...] on file documented as of this encounter Progress Notes * Addie Barboza M.A. - 04/15/2019 11:07 AM EDTFrom: Toan Hussein To: Artur Crocker DO Sent: 04/15/2019 10:05 AM EDT Subject: cortisone shot Good morning. I'd like to follow up on my submission to insurance for a 2nd cortisone shot. documented in this encounter Plan of Treatment Not on file documented as of this encounter Visit Diagnoses Not on filedocumented in this encounter Care Teams Punch Out Crew Member Relationship Specialty Start Date End Date Dustin Price MD [address] [place] [address] PCP - General Internal Medicine 09/21/16 02/22/21 Earnest Dorado PA-C [address] [place] [address] PCP - General Internal Medicine 02/23/21 documented as of this encounter
--- OUTSIDE RECORDS SUMMARY | 2025-01-09 09:24 | XMS_ITS | Clinical Summary ---
Author Organization [facility] Address [address] [place], [place] [id number] Care Team Providers Care Linseed Oil Refiner Name Role Phone Earnest Dorado PA-C Primary [...] age to complete this topic Care Teams Linseed Oil Refiner Relationship Specialty Start Date End Date Earnest Dorado PA-C PCP - General Medical Services 07/09/24
--- OUTSIDE RECORDS SUMMARY | 2025-01-09 09:24 | XMS_ITS | Encounter Summary ---
Author Organization [facility] Address [address] [place] [address] Care Team Providers Care Bottle Capping Machine Operator Name Role Phone Earnest Dorado PA-C Primary Care Provider [phone] Encounter Details Date Type Department Care Team Description 06/08/2023 Pt. Non Urgent Medical Question Adult Medicine [address] [phone] Earnest Dorado PA-C [address] [place] [address] [phone] Social History Tobacco Use Types Packs/Day Years Used Date Smoking Tobacco: Former Cigarettes 0.3 5 Q uit: 11/13/2005 Smokeless Tobacco: Never Alcohol Use Standard Drinks/Week Comments Yes 0.8 (1 standard drink = 0.6 oz p ure alcohol) occ Sex Assigned at Date Recorded Male 04/27/2021 8:52 AM E DT Job Start Date Occupation Industry Not on file Not on file Not on file COVID-19 Exposure Response Date Recorded In the last 10 days, have yo u been in contact with someone who was confirmed or suspected to have Coronavirus/COVID-19? No / Unsure 05/09/2023 10:08 AM EDT documented as of this encounter Miscellaneous Notes * Telephone Encounter - Makayla John M.A. - 06/08/2023 9:38 AM EDTFrom: Toan Savage To: Tesha Dorado Sent: 06/08/2023 9:37 AM EDT Subject: Just a few questions Gordy Okeefe. Im not sure if your up to speed. Adeline had a lot of tests and bloodwork done. I have been told by some drs that i have pancreatitus, i have been told by others that i dont. I have been told i might have a parasite. Adeline been told i have thick blood. Adeline been told i have heavy iron deposits onmy liver. No one has eit her confirmed nor denied most of this stuff with me and no treatment has been set forth. I was told to stop taking the jardiance, which i have and my sugars now range from 175 to 275 regularly. Its impossible for me to eat a more healthy diet and im barely eating as it is because EVERYTHING raises my blood sugar. I ate a cucumber the other day and it jumped alnost 50 points. Im completely lost here and dont know whats going on with my b jace or what im supposed to do. Should i just say fuck it and eat what i want and early from diabetes? Because even eating healthyisnt helping. Adeline lost an insane amount of weight and now weigh about 150 lbs. Im begging you, pleaae help me because no one is giving me any guidance whatsoever. documented in this encounter Plan of Treatment Not on file documented as of this encounter Visit Diagnoses Not on filedocumented in this encounter Care Teams Bottle Capping Machine Operator Relationship Specialty Start Date End Date Earnest Dorado PA-C [address] [place] [address] PCP - General Internal Medicine 02/23/21 documented as of this encounter
--- OUTSIDE RECORDS SUMMARY | 2025-01-09 09:24 | XMS_ITS | Encounter Summary ---
Author Organization [facility] Address [address] [place] [address] Care Team Providers Care Bilingual Recruiter Name Role Phone Earnest Dorado PA-C Primary Care Provider [phone] Reason for Visit * Reason Onset Date Comments Faxed Refill 05/06/2024 Encounter Details Date Type Department Care Team Description 05/06/2024 Refill Gastroenterology - [address] [place] [phone] Shaheed, Margarita, DScPAS Faxed Refill Social History Tobacco Use Types Packs/Day Years [...] encounter Miscellaneous Notes * Telephone Encounter - Sravani Mendoza - 05/06/2024 8:30 AM EDT Addi 05/09/23 No upcoming documented in this encounter Plan of Treatment Not on file documented as of this encounter Visit Diagnoses Not on filedocumented in this encounter Care Teams Bilingual Recruiter Relationship Specialty Start Date End Date Earnest Dorado PA-C [address] [place] [address] PCP - General Internal Medicine 02/23/21 documented as of this encounter
--- OUTSIDE RECORDS SUMMARY | 2025-01-09 09:24 | XMS_ITS | Encounter Summary ---
Author Organization [facility] Address [address] [place] [address] Care Team Providers Care Etcher Printed Circuit Boards Name Role Phone Dustin Price MD Primary Care Provider [phone] Earnest Dorado PA-C Primary Care Provider [phone] Encounter Details Date Type Department Care Team Description 03/28/2019 Business Doc Medical Records [address] [place], [place] [id number] Abstract, Provider Social History Tobacco Use Types [...] on filedocumented in this encounter Care Teams Etcher Printed Circuit Boards Relationship Specialty Start Date End Date Dustin Price MD [address] [place] [address] PCP - General Internal Medicine 09/21/16 02/22/21 Earnest Dorado PA-C [address] [place] [address] PCP - General Internal Medicine 02/23/21 documented as of this encounter
--- OUTSIDE RECORDS SUMMARY | 2025-01-09 09:24 | XMS_ITS | Clinical Summary ---
Author Organization [facility] [address] [place] [address] [place] [address] [place] [address] Phone Care Team Providers Care Carbon Electrodes Supervisor Name Role Phone Earnest Dorado Primary Care Provider [phone] Allergies Active Allergy Reactions Criticality Noted Date Comments Erythromycin Swelling High 06/07/2021 Swollen eyes Medications atorvastatin (LIPITOR) 80 mg tablet Take 1 tablet (80 mg total) by mouth 1 (one) time each day. 09/06/20 24 Active fluticasone propionate (FLONASE) 50 mcg/actuation nasal spray Administer 2 sprays into each nostril 1 (one) time each day. Active oxyCODONE-acet aminophen (PERCOCET) 5-325 mg per [...] (one) time each day. 15 mL 2 11/29/19 25 Active insulin aspart, niacinamide, (Fiasp FlexTouch [...] FOOD 360 tablet 1 12/09/19 25 Active sertraline (ZOLOFT) 50 mg tablet TAKE 1/2 TABLET BY MOUTH DAILY FOR 1 WEEK, THEN INCREASE TO 1 TABLET DAILY 30 tablet 12/27/19 25 Active sertraline (ZOLOFT) 50 mg tablet Take 1 tablet (50 mg total) by mouth 1 (one) time each day. 08/02/20 24 025 Discontinued Active Problems Problem Noted Date Diagnosed Date Hereditary hemochromatosis 08/31/2024 Lumbar radiculopathy 06/23/2023 Acute pancreatitis 05/04/2023 Overview (09/27/2024): [facility] History of 2019 novel coronavirus disease (COVID -19) 07/19/2022 Diabetes mellitus type 2 with neurological manif estations 09/18/2020 Diabetic neuropathy 09/18/2020 Deviated septum 11/21/2016 Umbilical hernia 11/21/2016 IBS (irritable bowel syndrome) 02/19/2013 Overview (09/27/2024): Diarrhea predominant, onset 2010. Post-op pain 02/10/2011 Dysuria 01/31/2011 Hyperlipidemia 08/06/2010 Acne 07/13/2010 Encounters Date Type Department Care Team Description 12/17/2024 6:56 AM EST - 12/17/2024 11:59 PM [facility] Hospital Encounter [facility] Pain Management [address] [place] [phone] Jovanny Kennedy MD Radiculopathy, lumbar region Discharge Disposition: Home or Self Care 12/17/2024 6:00 AM EST - 12/17/2024 11:59 PM [facility] Hospital Encounter [facility] Xray [address] [place] [phone] Pain Discharge Disposition: Home or Self Care 12/06/2024 9:15 AM EST Office Visit [facility] Hematology Oncology [address] [place] [phone] Kade Le MD Hereditary hemochromatosis (CMS/HCC) (Primary Dx) 11/29/2024 9:20 AM EST Office Visit Endocrinology - [place] [address] [place] [address] Jazmin Valera PA 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); Hyperlipidemia, unspecified hyperlipidemia type 11/01/2024 9:44 AM EST - 11/01/2024 11:59 PM EST Hospital Encounter [facility] MRI [address] [place] [phone] Discharge Disposition: Home or Self Care 10/25/2024 11:00 AM EST Ancillary Procedure [facility] [address] [place] [address] Hemochromatosis, unspecified from Last 3 Months Immunizations Name Administration [...] polyps, repeat in 10 years. APPENDECTOMY 2012 ej PROCEDURE:LAPAROSCOPIC APPENDECTOMY APPENDECTOMY PROCEDURE:APPENDECTOMY Medical History Medical [...] 02/28/2025 9:00 AM EDT Office Visit [facility] Hematology Oncology [address] [place] [phone] Kade Le MD [address] [place] [phone] 03/28/2025 9:40 AM EDT Office Visit Endocrinology - [place] [address] [place] [address] Jazmin Valera PA [address] [place] [address] Health Maintenance Due Date Last Done Comments Hepatitis B Vaccines (1 of 3 - 19+ 3-dose series) 1997 Pneumococcal Vaccine: Pediatrics (0 to 5 Years) and At-Risk Patients (6 to 64 Years) (2 of 2 - PCV) 03/27/2020 03/27/2019 Depression Screening 10/22/2022 Hepatitis C Screening 10/22/2022 Social Influencers of Health Screening 10/22/2022 Diabetes: Annual Foot Exam 04/26/2024 04/26/2023 COVID-19 Vaccine ( - 2023-2 5 season) 2024 Influenza Vaccine [...] Routine 10/25/2024 11:43 AM EST Hemochromatosis, unspecified HM URINE ALBUMIN CREATININE RATIO Routine 07/05/2024 HM ANNUAL BMP BLOOD TEST Routine 07/05/2024 HEMOGLOBIN [...] Signed Date: 12/17/2024 13:20 ET Workstation ID: [id number] Transcribed By: Self Edit Transcribed Date: 12/17/2024 [...] Signed Date: 12/17/2024 13:20 ET Workstation ID: [id number] Transcribed By: Self Edit Transcribed Date: 12/17/2024 [...] Signed Date: 11/01/2024 16:00 ET Workstation ID: [id number] Transcribed By: Self Edit Transcribed Date: 11/01/2024 [...] Signed Date: 11/01/2024 16:00 ET Workstation ID: [id number] Transcribed By: Self Edit Transcribed Date: 11/01/2024 15:11 ET us Kade Le MD IMG MRI PROCEDURES Final Re sult * (ABNORMAL) TRANSTHORACIC ECHOCARDIOGRAM (TTE) COMPLETE (10/25/2024 11:43 AM EST) Left Atrium Minor [place] 4.5 cm CV PACS Left Atrium Major [place] 5.0 cm CV PACS LA Area Sys [...] S' 12 cm/s CV PACS RA Major [place] 4.7 cm CV PACS RA Major [place] Index 2.5 2.1 - 2.7 cm/m2 CV [...] strain. Kade Le MD CV ECHO PROCEDURES Final Re sult * Urine Albumin Creatinine Ratio (07/05/2024) Pathologist [facility] Urine Albumin Creatinine Ratio abstracted Historical Provider HEALTH MAINTENANCE Final Result * Annual BMP Blood Test (07/05/2024) Pathologist [facility] Annual BMP Blood Test abstracted Historical Provider HEALTH MAINTENANCE Final Result * Hemoglobin A1c (07/05/2024) [facility] Hemoglobin A1C 5.5 <=6.5 % Blood Venous blood specimen / Unknown Result [facility] Provider LAB BLOOD ORDERABLES Nadya l Result * (ABNORMAL) Lipid panel (07/05/2024) [facility] LDL/HDL Ratio 2 0 - 4 Triglycerides 169(A) 0 - 150 mg/dL Cholesterol 112 0 - 200 mg/dL HDL 52 >=40 mg/dL LDL Cholesterol 27 0 - 100 mg/dL Blood Venous blood specimen / Unknown Result [facility] Provider LAB BLOOD ORDERABLES Nadya l Result * Diabetes Eye Exam (07/04/2024) [facility] Diabetes: Annual Retina Eye Exam abstracted Result [facility] Provider HEALTH MAINTENANCE Final Result * Diabetes Foot Exam (04/26/2023) [facility] Diabetes: Annual Foot Exam abstracted Result [facility] Provider HEALTH MAINTENANCE Final Result * Colonoscopy (12/18/2020) [facility] Colonoscopy no inperatati on,abstact ed Anatomical Region Laterality Modality Other Result [facility] Provider HEALTH MAINTENANCE Final Result * HIV Screening (04/15/2015) [facility] HIV Screening abstracted Result [facility] Provider HEALTH MAINTENANCE Final Result from Last 3 Months or Most Recently Relevant to Health Maintenance Insurance [employer] Care Teams Carbon Electrodes Supervisor Relationship Specialty Start Date End Date Earnest Dorado PA [address] [place] [address] PCP - General Internal Medicine 10/09/24
--- OUTSIDE RECORDS SUMMARY | 2025-01-09 09:24 | XMS_ITS | Encounter Summary ---
Author Organization [facility] Address [address] [place] [address] Care Team Providers Care Sales Team Leader Name Role Phone Earnest Dorado PA-C Primary Care Provider [phone] Reason for Visit * Reason Onset Date Comments Faxed Refill 12/29/2022 Encounter Details Date Type Department Care Team Description 12/29/2022 Refill Endocrinology - [address] [address] Jazmin Valera PA-C [address] [place] [address] [phone] Faxed Refill Social History Tobacco Use Types [...] encounter Miscellaneous Notes * Telephone Encounter - Alden Price - 12/29/2022 3:30 PM EST Addi 11/04/22 Lab Results Component Value Date HGBA1C 5.9 11/08/2022 MALBUR 10.8 09/30/2022 MALBCR 7.2 09/30/2022 CHOL 104 09/30/2022 LDL 12 09/30/2022 HDL 42 09/30/2022 TRIG 250 09/30/2022 GLU 212 11/08/2022 CREAT 1.11 11/08/2022 * Telephone Encounter - Rand Madrigal - 12/29/2022 2:45 PM EST Patient would like script to be: E-PRESCRIBED/FAXED TO PHARMACY WHEN WAS THE PATIENT'S LAST APPOINTMENT WITH THE PRESCRIBING PROVIDER? 11/04/2022 Does patient have an upcoming appointment? (THE MEDICATION REQUESTED IS ON THE MED LIST ABOVE) All of the medications requested were on the CURRENT MEDS list Did you check the Pharmacy information above?: YES Patient wants: 30 -day supply Is this a mail order prescription request ? NO Patients current insurance carrier is: Payor: [employer] / Plan: PPO $30 [id number] / Product Type: PPO [id number] documented in this encounter Plan of Treatment Not on file documented as of this encounter Visit Diagnoses Diagnosis Diabetes mellitus type 2 with neurological manifestations (HCC) Type II or unspecified type diabetes mellitus with neurological manifestations, not stated as uncontrolled documented in this encounter Care Teams Sales Team Leader Relationship Specialty Start Date End Date Earnest Dorado PA-C [address] [place] [address] PCP - General Internal Medicine 02/23/21 documented as of this encounter
--- OUTSIDE RECORDS SUMMARY | 2025-01-09 09:24 | XMS_ITS | Encounter Summary ---
Author Organization [facility] Address [address] [place] [address] Care Team Providers Care Sanitizer Name Role Phone Earnest Dorado PA-C Primary Care Provider [phone] [phone] Reason for Visit * Reason Onset Date Comments refill request 09/27/2023 Encounter Details Date Type Department Care Team Description 09/27/2023 Refill Adult Medicine [address] [address] Earnest Dorado PA-C [address] [place] [address] [phone] refill request Social History Tobacco Use Types [...] encounter Miscellaneous Notes * Telephone Encounter - Lizz Ivory C.M.A. - 09/28/2023 3:28 PM EST Addi - 05/09/2023 Afshin - nora * Telephone Encounter - Ayala Delacruz - 09/27/2023 4:35 PM EST Patient would like script to be: E-PRESCRIBED/FAXED TO PHARMACY WHEN WAS THE PATIENT'S LAST APPOINTMENT IN ADULT MEDICINE? 06/23/23 WHEN WAS THE LAST TIME THE PATIENT SAW THEIR PCP? 06/23/23 Does patient have an upcoming appointment? Yes 12/29/23 (THE MEDICATION REQUESTED IS ON THE MED LIST ABOVE) All of the medications requested were on the CURRENT MEDS list Did you check the Pharmacy information above?: YES Patient wants: 90 -day supply Is this a mail order prescription request ? NO If the refill is from a FAXED refill request what is the RX # listed on the fax? N/A Patients current insurance carrier is: Payor: [employer] / Plan: PPO $30 [id number] / Product Type: PPO [id number] documented in this encounter Plan of Treatment Not on file documented as of this encounter Visit Diagnoses Not on filedocumented in this encounter Care Teams Sanitizer Relationship Specialty Start Date End Date Earnest Dorado PA-C [address] [place] [address] PCP - General Internal Medicine 02/23/21 documented as of this encounter
--- OUTSIDE RECORDS SUMMARY | 2025-01-09 09:24 | XMS_ITS | Encounter Summary ---
Author Organization [facility] Address [address] [place] [address] Care Team Providers Care Co Founder And Cto Name Role Phone Dustin Price MD Primary Care Provider [phone] Earnest Dorado PA-C Primary Care Provider [phone] Reason for Visit * Reason Onset Date Comments Prior Authorization 04/03/2019 colonoscopy Encounter Details Date Type Department Care Team Description 04/03/2019 Telephone Gastroenterology - [address] [place] [address] Angel Finley MD Prior Authorization (colonoscopy) Social History Tobacco Use Types Packs/Day Years [...] encounter Miscellaneous Notes * Telephone Encounter - Zandra Whitehead - 04/03/2019 5:23 PM EDT Pre-auth needed Patient is scheduled for an colonoscopy on 07/22/19 Patients insurance: [employer] [id number] Appointment is with Angel Finley MD Code to process pre-auth for: [id number] Location of procedure: [facility] documented in this encounter Plan of Treatment Not on file documented as of this encounter Visit Diagnoses Not on filedocumented in this encounter Care Teams Co Founder And Cto Relationship Specialty Start Date End Date Dustin Price MD [address] [place] [address] PCP - General Internal Medicine 09/21/16 02/22/21 Earnest Dorado PA-C [address] [place] [address] PCP - General Internal Medicine 02/23/21 documented as of this encounter
--- OUTSIDE RECORDS SUMMARY | 2025-01-09 09:24 | XMS_ITS | Encounter Summary ---
Author Organization [facility] Address [address] [place] [address] Care Team Providers Care Outfitter Cabin Name Role Phone Earnest Dorado PA-C Primary Care Provider [phone] Reason for Visit * Reason Onset Date Comments APPOINTMENT 09/27/2023 Encounter Details Date Type Department Care Team Description 09/27/[address] [facility] [address] [place] [address] Earnest Dorado PA-C [address] [place] [address] APPOINTMENT Social History Tobacco Use Types Packs/Day Years Used Date Smoking Tobacco: Former Cigarettes 0.3 5 Q uit: 11/13/2005 Smokeless Tobacco: Never Alcohol Use Standard Drinks/Week Comments Not Currently 0.8 (1 standard drink = 0.6 oz p ure alcohol) occ Sex Assigned at Date Recorded Male 04/27/2021 8:52 AM EDT Job Start Date Occupation Industry Not on file Not on file Not on file documented as of this encounter Miscellaneous Notes * Telephone Encounter - Earnest Dorado PA-C - 09/27/2023 8:04 PM EST OK I appreciate the heads up. Hopefully the big wigs work something out with [employer] going forward and we can still see him * Telephone Encounter - Ayala Delacruz - 09/27/2023 4:37 PM EST Patient called with BESSIE for Maldonado. States that he has [employer] Ins which is no longer accepted here. He has a certficiate of continuity however he isn't sure how long that is good for. He would like to stay with [facility] and is trying to see what he can do to get a new insurance. He wanted you to know that is the reason he had to cancelhis appt with Rere as he is afraid you will cut him off . Msg ok to wait for Maldonado documented in this encounter Plan of Treatment Not on file documented as of this encounter Visit Diagnoses Not on filedocumented in this encounter Care Teams Outfitter Cabin Relationship Specialty Start Date End Date Earnest Dorado PA-C [address] [place] [address] PCP - General Internal Medicine 02/23/21 documented as of this encounter
--- OUTSIDE RECORDS SUMMARY | 2025-01-09 09:24 | XMS_ITS | Encounter Summary ---
Author Organization [facility] Address [address] [place] [address] Care Team Providers Care Cigarette Roller Name Role Phone Earnest Dorado PA-C Primary Care Provider [phone] Reason for Visit * Reason Onset Date Comments Prior Authorization 05/24/2023 Genetic test ing hemochromatosis Encounter Details Date Type Department Care Team Description 05/24/2023 Telephone Adult Medicine [facility] [address] [place] [address] Emre Narvaez MD [address] [place] [address] [phone] Prior Authorization (Genetic testing hemochromatosis ) Social History Tobacco Use Types Packs/Day Years [...] encounter Miscellaneous Notes * Telephone Encounter - Kaylah Ohara - 05/24/2023 2:43 PM EDT Per Mary Joshua at [facility]/Kat no auth required on 05/24/23 at 1:40 PM central time. OK to draw documented in this encounter Plan of Treatment Not on file documented as of this encounter Visit Diagnoses Not on filedocumented in this encounter Care Teams Cigarette Roller Relationship Specialty Start Date End Date Earnest Dorado PA-C [address] [place] [address] PCP - General Internal Medicine 02/23/21 documented as of this encounter
--- OUTSIDE RECORDS SUMMARY | 2025-01-09 09:24 | XMS_ITS | Encounter Summary ---
Author Organization [facility] Address [address] [place] [address] Care Team Providers Care Landscaper Helper Name Role Phone Earnest Dorado Primary Care Provider +1 [phone] Reason for Referral * Pain Management (Routine) - Closed Specialty Diagnoses / Procedures Referred By Contac t Referred To Contact Pain Medicine Diagnoses Radiculopathy, lumbar region Procedures Injection epidural lumbar transforaminal bilateral Jovanny Kennedy MD [address] [place] [address] Phone: tel: fax: Referral ID Status Reason Start Date Expiration Date Visits Re quested Visits Authorized [id number] Closed 12/13/2024 12/13/2025 1 1 Reason for Visit * Pain Management (Routine) - Closed Specialty Diagnoses / Procedures Referred By Contac t Referred To Contact Pain Medicine Diagnoses Radiculopathy, lumbar region Procedures Injection epidural lumbar transforaminal bilateral Jovanny Kennedy MD [address] [place] [address] Phone: tel: fax: Referral ID Status Reason Start Date Expiration Date Visits Re quested Visits Authorized [id number] Closed 12/13/2024 12/13/2025 1 1 Encounter Details Date Type Department Care Team (Latest Contact Info) Description 12/17/2024 6:56 AM EST - 12/17/2024 11:59 PM EST Hospital Encounter [facility] Pain Management [address] [place] [address] Jovanny Kennedy MD [address] [place] [address] Radiculopathy, lumbar region Discharge Disposition: Home or [...] this encounter Medications at Time of Discharge insulin glargine,hum.rec .anlog (Basaglar KwikPen U-100 Insulin) [...] every 8 (eight) hours if needed. 05/18/2023 atorvastatin (LIPITOR) 80 mg tablet Take 1 tablet (80 mg total) by mouth 1 (one) time each day. 09/06/2024 BD Ultra-Fine Short Pen Needle 31 gauge x 5/16 needle USE DIRECTED WITH INSULIN PEN 4 TIMES DAILY 400 each 1 09/30/2024 blood-glucose sensor (FreeStyle Jamil 3 Plus Sensor) deviceIndication s:Jaiml 3 not available Box = Kit = [...] day before meals. 15 mL 2 11/29/2024 sertraline (ZOLOFT) 50 mg tablet Take 1 [...] Description 02/28/2025 9:00 AM EDT Office Visit [facility] Hematology Oncology [address] [place] [phone] Kade Le MD [address] [place] [address] 03/28/2025 9:40 AM EDT Office Visit Endocrinology - [place] [address] [place] [address] Jazmin Valera PA [address] [place] [address] Scheduled Orders Name Type Priority Associated Diagnoses [...] 025 documented in this encounter Care Teams Landscaper Helper Relationship Specialty Start Date End Date Earnest Dorado PA [address] [place] [address] PCP - General Internal Medicine 10/09/24 documented as of this encounter
--- OUTSIDE RECORDS SUMMARY | 2025-01-09 09:24 | XMS_ITS | Encounter Summary ---
Author Organization [facility] Address [address] [place] [address] Care Team Providers Care Environmental Associate Name Role Phone Earnest Dorado PA-C Primary Care Provider +1 [phone] Encounter Details Date Type Department Care Team Description 04/01/2023 CGM Report Medical Records [address] [place] [address] Abstract, Provider Social History Tobacco Use Types [...] suspected to have Coronavirus/COVID-19? No / Unsure 03/29/2023 11:21 AM EDT documented as of this encounter Plan of Treatment Not on file documented as of this encounter Visit Diagnoses Not on filedocumented in this encounter Care Teams Environmental Associate Relationship Specialty Start Date End Date Earenst Dorado PA-C [address] [place] [address] PCP - General Internal Medicine 02/23/21 documented as of this encounter
--- OUTSIDE RECORDS SUMMARY | 2025-01-09 09:24 | XMS_ITS | Encounter Summary ---
[facility] Address [address] [place] [address] Care Team Providers Care Laborer Beam House Name Role Phone Earnest Dorado PA-C Primary Care Provider +1 -[phone] Encounter Details Date Type Department Care Team Description 10/22/2022 CGM Report Medical Records [address] [place] [address] Abstract, Provider Social History Tobacco Use Types [...] suspected to have Coronavirus/COVID-19? No / Unsure 09/30/2022 8:36 AM EST documented as of this encounter Plan of Treatment Not on file documented as of this encounter Visit Diagnoses Not on filedocumented in this encounter Care Teams Laborer Beam House Relationship Specialty Start Date End Date Earnest Dorado PA-C [address] [place] [address] PCP - General Internal Medicine 02/23/21 documented as of this encounter
--- OUTSIDE RECORDS SUMMARY | 2025-01-09 09:24 | XMS_ITS | Encounter Summary ---
Author Organization [facility] Address [address] [place] [address] Care Team Providers Care Jig Borer Name Role Phone Joseph Browne MD Primary Care Provider Derik Hoffmann MD Primary Care Provider [facility], Pcp Primary Care Provider Dustin Allen MD Primary Care Provider + [phone] Earnest Dorado PA-C Primary Care Provider +1 [phone] Reason for Visit * Reason Onset Date Comments Note, Work 02/04/2013 Encounter Details Date Type Department Care Team Description 02/04/2013 Telephone Adult [address] [address] Joseph Browne MD Note, Work Social History Tobacco Use Types Packs/Day Years [...] encounter Miscellaneous Notes * Telephone Encounter - Ivanna Reyes R.N. - 02/04/2013 11:18 AM EDT Pt has had abd pain all morning Pt has no chest pain or SOB, has nausea but no vomiting, no diarrhea, no fever, pt had lower abd pain in the middle of the abdomen, he has had this pain in the past, ( has GI f/u on 02/14) the pain is worse when he bends over and then straighten up. He is hungry and has been drinking this am. Advised home care following the abd pain Protocol. RN reinforced telephone consultation and advice.Reviewed with the patient the signs and symptoms to watch for that would require immediate attention. If symptoms change, worsen or increase in intensity, to call back immediately. Appointment today at 1:[address] zurita No past medical history on file. Outpatient Prescriptions Prior to Visit Medication Sig Dispense Refill ??? Testosterone (TESTIM) 50 MG/5GM GEL Apply 1 Packet topically daily. 150 g 2 ??? Multiple Vitamin (MULTI VITAMIN MENS) TABS Take by mouth. ??? XBIG-X46-QMG C-FA-IFC OR Take by mouth. ??? B Complex Vitamins (B COMPLEX 100) TABS Take by mouth. ??? Lactobacillus (ACIDOPHILUS EXTRA STRENGTH OR) Take by mouth. ??? dicyclomine (BENTYL) 10 MG capsule Take 1 Cap by mouth 4 times daily (before meals and nightly). 120 Cap 5 ??? fluticasone (FLONASE) 50 MCG/ACT nasal spray 2 sprays in each nostril once per day for 2 weeks.1 Bottle 1 * Telephone Encounter - Rabia Madhav - 02/04/2013 11:08 AM EDT Symptoms patient is presenting: patient suffers from abdominal pain, cramping, for about 2 years now and today its bad, he cannot work, doubled over. Can he get a work note or does he have be seen, scheduled with GI 02/14/13 How long has patient had these symptoms?: just this am. PCP: Joseph Browne MD Payor: [facility] Plan: HMO [id number] Product Type: HMO [id number] documented in this encounter Plan of Treatment Not on file documented as of this encounter Visit Diagnoses Not on filedocumented in this encounter Care Teams Jig Borer Relationship Specialty Start Date End Date Joseph Browne MD PCP - General 07/12/10 11/12/14 Derik Kaminski MD PCP - General Internal Medicine 11/17/14 10/25/15 [facility], Pcp PCP - General Internal Medicine 10/26/15 09/20/16 Dustin Price MD [address] [place] [address] PCP - General Internal Medicine 09/21/16 02/22/21 Earnest Dorado PA-C [address] [place] [address] PCP - General Internal Medicine 02/23/21 documented as of this encounter
--- OUTSIDE RECORDS SUMMARY | 2025-01-09 09:25 | XMS_ITS | Encounter Summary ---
Author Organization [facility] Address [address] [place] [address] Care Team Providers Care Radiator Repairer Name Role Phone Earnest Dorado PA-C Primary Care Provider [phone] [phone] Reason for Visit * Reason Onset Date Comments Prior Authorization 05/22/2023 Encounter Details Date Type Department Care Team Description 05/22/2023 Telephone Adult Medicine [facility] [address] [place] [address] Earnest Dorado PA-C [address] [place] [address] [phone] Prior Authorization Social History Tobacco Use Types [...] encounter Miscellaneous Notes * Telephone Encounter - Ayala Nieves M.A. - 05/25/2023 11:32 AM EDT Prior authorization for the oxycodone was approved Approved from 05/24/23 until 11/24/23 \ Approval faxed to [facility][1] at [phone] * Telephone Encounter - Ayala Nieves M.A. - 05/23/2023 12:00 PM EDT Prior authorization was completed on cover my meds and came back with pts demographics do not match. Unable to locate pt. Called [employer] [id number] and spoke with Brii . We did the prior authorization over the phone Dx code K 85.90 Acute pancreatitis * Telephone Encounter - Earnest Dorado PA-C - 05/22/2023 8:44 PM EDT Yea could use pancreatitis or liver disease due to iron overload * Telephone Encounter - Ayala Nieves M.A. - 05/22/2023 4:54 PM EDT Is the dx for the oxycodone Acute pancreatitis? Thank you Please reply back to [id number] Prior Auth Pool Ayala Burgess [facility] Prior Authorization Ext [id number] * Telephone Encounter - Sean Bob - 05/22/2023 9:53 AM EDT Prior Authorization for Medication-do not complete and send this encounter unless you have the fax from the pharmacy. Is this a Cover My Meds request: [place] of Medication oxycodone-acetaminophen (PERCOCET) 5-325 MG per tablet Dose of Medication 5-325 MG per tablet What is the RX # from the faxed refill? [id number] How does patient take this med? Take one tablet by mouth every 8 hours as needed for pain What Pharmacy did the fax come from: [facility] fax #: [phone] [employer] Information from fax: What Prescription Plan does the patient have? Not on form BIN/PCN if applicable: Not on form Cardholder ID:Not on form Person Code: Not on form Relationship Code: Not on form Help desk phone: Not on form documented in this encounter Plan of Treatment Not on file documented as of this encounter Visit Diagnoses Not on filedocumented in this encounter Care Teams Radiator Repairer Relationship Specialty Start Date End Date Earnest Dorado PA-C [address] [place] [address] PCP - General Internal Medicine 02/23/21 documented as of this encounter
--- OUTSIDE RECORDS SUMMARY | 2025-01-09 09:25 | XMS_ITS | Encounter Summary ---
Author Organization [facility] [place] [address] Care Team Providers Care Collection Agent Name Role Phone Earnest Dorado Primary Care Provider [phone] [phone] Encounter Details Date Type Department Care Team (Late st Contact Info) Description 08/30/2024 11:13 AM EDT Hospital Encounter TH HISTORIC ENCOUNTERS EASTERN CONVERSION ONLY Kade Le MD [address] [place] [phone] Social History Tobacco Use Types Packs/Day Years [...] daughter. 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 He has 1 son [...] Description 02/28/2025 9:00 AM EDT Office Visit [facility] Hematology Oncology [address] [place] [phone] Kade Le MD [address] [place] [address] 03/28/2025 9:40 AM EDT Office Visit Endocrinology - [place] [address] [place] [phone] Jazmin Valera PA [address] [place] [address] documented as of this encounter Visit Diagnoses Not on filedocumented in this encounter Care Teams Collection Agent Relationship Specialty Start Date End Date Earnest Dorado PA PCP - General Internal Medicine 02/23/21 10/08/24 documented as of this encounter
== END 2025-01-09 08:50 | disposition home or self-care (01) ==
LOC: HO.BBR 08:49
PROVIDERS: PCP Physician Assistant Medical; Visit Provider Internal Medicine Hematology & Oncology
DX: Z13.89 Encounter for screening for other disorder (principal)

== ENCOUNTER 2025-01-24 09:55 | Outpatient (REF) | payer OTHER, SELFPAY ==
--- OUTSIDE RECORDS SUMMARY | 2025-01-24 11:07 | XMS_ITS | Clinical Summary ---
Author Organization [facility] [address] [place] [address] [place] [address] [place] [address] Phone Care Team Providers Care Shank Cementer Hand Name Role Phone Earnest Dorado Primary Care Provider +1 [phone] Allergies Active Allergy Reactions Criticality Noted Date [...] radiculopathy 06/23/2023 Acute pancreatitis 05/04/2023 Overview (09/27/2024): [facility] ER History of 2019 [...] 6:56 AM EST - 12/17/2024 11:59 PM [facility] Hospital Encounter [facility] Pain Management [address] [place] [phone] Jovanny Kennedy MD Radiculopathy, lumbar region Discharge Disposition: Home or Self Care 12/17/2024 6:00 AM EST - 12/17/2024 11:59 PM [facility] Hospital Encounter [facility] Xray [address] [place] [phone] Pain Discharge Disposition: Home or Self Care 12/06/2024 9:15 AM EST Office Visit [facility] Hematology Oncology [address] [place] [address] Kade Le MD Hereditary hemochromatosis (CMS/HCC) (Primary Dx) 11/29/2024 9:20 AM EST Office Visit [place] [phone] [place] [address] Jazmin Valera PA 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); Hyperlipidemia, unspecified hyperlipidemia type 11/01/2024 9:44 AM EST - 11/01/2024 11:59 PM EST Hospital Encounter [facility] MRI [address] [place] [address] Discharge Disposition: Home or Self Care from Last 3 Months Immunizations Name Administration [...] [facility] Hematology Oncology [address] [place] [address] Kade Le MD [address] [place] [phone] 03/28/2025 9:40 AM EDT Office Visit Endocrinology - [place] [address] [place] [address] Jazmin Valera PA [address] [place] [address] Health Maintenance Due Date Last Done Comments [...] HOUR Routine 12/17/2024 7:48 AM EST Pain MR ABDOMEN WO AND W CONTRAST Routine 11/01/2024 11:04 AM EST Hemochromatosis URINE ALBUMIN CREATININE RATIO Routine 07/05/2024 ANNUAL [...] Signed Date: 12/17/2024 13:20 ET Workstation ID: [id number] Transcribed By: Self Edit Transcribed Date: 12/17/2024 [...] Signed Date: 12/17/2024 13:20 ET Workstation ID: [id number] Transcribed By: Self Edit Transcribed Date: 12/17/2024 [...] Signed Date: 11/01/2024 16:00 ET Workstation ID: [id number] Transcribed By: Self Edit Transcribed Date: 11/01/2024 [...] Signed Date: 11/01/2024 16:00 ET Workstation ID: [id number] Transcribed By: Self Edit Transcribed Date: 11/01/2024 15:11 ET Kade Le MD IM MRI PROCEDURES Final Re sult * Urine Albumin Creatinine Ratio (07/05/2024) Urine Albumin Creatinine Ratio abstracted Historical Provider HEALTH MAINTENANCE Final Result * Annual BMP Blood Test (07/05/2024) [facility] Annual BMP Blood Test abstracted Result [facility] Provider HEALTH MAINTENANCE Final Result * Hemoglobin A1c (07/05/2024) [facility] Hemoglobin A1C 5.5 <=6.5 % Blood Venous blood specimen / Unknown Result [facility] Provider LAB BLOOD ORDERABLES Nadya l Result * (ABNORMAL) Lipid panel (07/05/2024) [facility] LDL/HDL Ratio 2 0 - 4 Triglycerides 169(A) 0 - 150 mg/dL Cholesterol 112 0 - 200 mg/dL HDL 52 >=40 mg/dL LDL Cholesterol 27 0 - 100 mg/dL Blood Venous blood specimen / Unknown Result [facility] Provider LAB BLOOD ORDERABLES Nadya l Result * Diabetes Eye Exam (07/04/2024) [facility] Diabetes: Annual Retina Eye Exam abstracted Result [facility] Provider HEALTH MAINTENANCE Final Result * Diabetes Foot Exam (04/26/2023) [facility] Diabetes: Annual Foot Exam abstracted Result [facility] Provider HEALTH MAINTENANCE Final Result * Colonoscopy (12/18/2020) [facility] Colonoscopy no inperatati on,abstact ed Anatomical Region Laterality Modality Other Result [facility] Provider HEALTH MAINTENANCE Final Result * HIV Screening (04/15/2015) [facility] HIV Screening abstracted Result [facility] Provider HEALTH MAINTENANCE Final Result from Last 3 Months or Most Recently Relevant to Health Maintenance Insurance [facility] Care Teams Shank Cementer Hand Relationship Specialty Start Date End Date Earnest Dorado PA [address] [place] [address] PCP - General Internal Medicine 10/09/24
--- OUTSIDE RECORDS SUMMARY | 2025-01-24 11:07 | XMS_ITS | Encounter Summary ---
Author Organization [facility] [place] [address] Care Team Providers Care Newspaper Copy Editor Name Role Phone Earnest Dorado Primary Care Provider +1 -[phone] Encounter Details Date Type Department Care Team (Late st Contact Info) Description 08/30/2024 11:13 AM EDT Hospital Encounter TH HISTORIC ENCOUNTERS EASTERN CONVERSION ONLY Kade Le MD [address] [place] [phone] Social History Tobacco Use Types Packs/Day [...] daughter. 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 He has 1 son [...] Description 02/28/2025 9:00 AM EDT Office Visit [facility] Hematology Oncology [address] [place] [phone] Kade Le MD [address] [place] [address] 03/28/2025 9:40 AM EDT Office Visit Endocrinology - [place] [address] [place] [phone] Jazmin Valera PA [address] [place] [address] documented as of this encounter Visit Diagnoses Not on filedocumented in this encounter Care Teams Newspaper Copy Editor Relationship Specialty Start Date End Date Earnest Dorado PA PCP - General Internal Medicine 02/23/21 10/08/24 documented as of this encounter
--- OUTSIDE RECORDS SUMMARY | 2025-01-24 11:07 | XMS_ITS | Clinical Summary ---
Author Organization [facility] Address [address] [place], [place] [address] Care Team Providers Care Safety Attendant Name Role Phone Earnest Dorado PA-C Primary [...] age to complete this topic Care Teams Safety Attendant Relationship Specialty Start Date End Date Earnest Dorado PA-C PCP - General Medical Services 07/09/24
--- OUTSIDE RECORDS SUMMARY | 2025-01-24 11:07 | XMS_ITS ---
Author Name [facility] Organization Unknown Encounters Encounter Type Encounter Reason Primary Diagnosis Location Date Ambulatory [facility] 12/05/2024 Ambulatory [facility] 08/23/2024 Care Team Organization Name Specialty Phone Email Start Date End Da [facility] 2024
== END 2025-01-24 09:56 | disposition home or self-care (01) ==
LOC: HO.BBR 09:55
PROVIDERS: PCP Physician Assistant Medical; Visit Provider Internal Medicine Hematology & Oncology
DX: Z13.89 Encounter for screening for other disorder (principal)

== ENCOUNTER 2025-02-07 09:39 | Outpatient (REF) | payer OTHER, SELFPAY | END 2025-02-07 09:40 | disposition home or self-care (01) | LOC: HO.BBR 09:39 | PROVIDERS: PCP Physician Assistant Medical; Visit Provider Internal Medicine Hematology & Oncology | DX: Z13.89 Encounter for screening for other disorder (principal) ==

== ENCOUNTER 2025-02-21 08:37 | Outpatient (REF) | payer OTHER, SELFPAY ==
--- OUTSIDE RECORDS SUMMARY | 2025-02-21 08:40 | XMS_ITS | Encounter Summary ---
Author Organization [facility] Address [address] [place] [address] Care Team Providers Care Food Service Utility Worker Name Role Phone Earnest Dorado PA-C Primary Care Provider +1 [phone] Encounter Details Date Type Department Care Team Description 04/27/2021 Refill Adult Medicine [facility] [address] [place] [phone] Earnest Dorado PA-C [address] [place], [place] [phone] Social History Tobacco Use Types Packs/Day Years [...] encounter Miscellaneous Notes * Telephone Encounter - Mariely Garcias M.A. - 04/27/2021 9:11 AM EDT [facility] 02/19/2021 telehealth F/U appt 06/04/2021 Lab Results Component Value Date HGBA1C 7.4 02/18/2021 MALBUR 10.9 02/18/2021 MALBCR 8.4 02/18/2021 CHOL 100 02/18/2021 LDL < 10 02/18/2021 HDL 44 02/18/2021 TRIG 288 02/18/2021 GLU 253 02/18/2021 CREAT 1.25 02/18/2021 documented in this encounter Plan of Treatment Not on file documented as of this encounter Visit Diagnoses Not on filedocumented in this encounter Care Teams Food Service Utility Worker Relationship Specialty Start Date End Date Earnest Dorado PA-C [address] [place] [address] PCP - General Internal Medicine 02/23/21 documented as of this encounter
--- OUTSIDE RECORDS SUMMARY | 2025-02-21 08:40 | XMS_ITS | Encounter Summary ---
Author Organization [facility] Address [address] [place] [address] Care Team Providers Care Dough Cutting Machine Operator Name Role Phone Earnest Dorado PA-C Primary Care Provider +1 -[phone] Reason for Visit * Reason Onset Date Comments Prior Authorization 05/24/2023 Genetic test ing hemochromatosis Encounter Details Date Type Department Care Team Description 05/24/2023 Telephone Adult Medicine [facility] [address] [place] [address] Emre Narvaez MD [address] [place] [address] [phone] Prior Authorization (Genetic testing hemochromatosis ) Social [...] 2:43 PM EDT Per Mary Joshua at [facility]/Kat no auth required on 05/24/23 at 1:40 PM central time. OK to draw documented in this encounter Plan of Treatment Not on file documented as of this encounter Visit Diagnoses Not on filedocumented in this encounter Care Teams Dough Cutting Machine Operator Relationship Specialty Start Date End Date Earnest Dorado PA-C [address] [place] [address] PCP - General Internal Medicine 02/23/21 documented as of this encounter
--- OUTSIDE RECORDS SUMMARY | 2025-02-21 08:40 | XMS_ITS | Encounter Summary ---
Author Organization [facility] Address [address] [place] [address] Care Team Providers Care Buffet Attendant Name Role Phone Earnest Dorado PA-C Primary Care Provider +1 -[phone] Encounter Details Date Type Department Care Team Description 09/29/2023 CGM Report Medical Records [address] [place] [address] Abstract, Provider Social History Tobacco Use Types [...] on filedocumented in this encounter Care Teams Buffet Attendant Relationship Specialty Start Date End Date Earnest Dorado PA-C [address] [place] [address] PCP - General Internal Medicine 02/23/21 documented as of this encounter
--- OUTSIDE RECORDS SUMMARY | 2025-02-21 08:40 | XMS_ITS | Encounter Summary ---
Author Organization [facility] Address [address] [place] [address] Care Team Providers Care Amf Mechanic Name Role Phone Earnest Dorado PA-C Primary Care Provider +1 -[phone] Reason for Visit * Reason Onset Date Comments refill request 09/27/2023 Encounter Details Date Type Department Care Team Description 09/27/2023 Refill Adult Medicine [address] [address] Earnest Dorado PA-C [address] [place] [address] [phone] refill request Social History Tobacco Use Types [...] Payor: [employer] / Plan: PPO $30 KINA [id number] / Product Type: PPO [id number] documented in this encounter Plan of Treatment Not on file documented as of this encounter Visit Diagnoses Not on filedocumented in this encounter Care Teams Amf Mechanic Relationship Specialty Start Date End Date Earnest Dorado PA-C [address] [place] [address] PCP - General Internal Medicine 02/23/21 documented as of this encounter
--- OUTSIDE RECORDS SUMMARY | 2025-02-21 08:40 | XMS_ITS | Encounter Summary ---
Author Organization [facility] Address [address] [place] [address] Care Team Providers Care Grinder Machine Knife Setter Name Role Phone Dustin Price MD Primary Care Provider +[phone] Earnest Dorado PA-C Primary Care Provider +1 [phone] Encounter Details Date Type Department Care Team Description 08/06/2019 Nick Setter Report Medical Records [address] [place] [address] Clifford Tavares MD, PHD Social History Tobacco [...] on filedocumented in this encounter Care Teams Grinder Machine Knife Setter Relationship Specialty Start Date End Date Dustin Price MD [address] [place] [address] PCP - General Internal Medicine 09/21/16 02/22/21 Earnest Dorado PA-C [address] [place] [address] PCP - General Internal Medicine 02/23/21 documented as of this encounter
--- OUTSIDE RECORDS SUMMARY | 2025-02-21 08:40 | XMS_ITS | Encounter Summary ---
Author Organization [facility] Address [address] [place] [address] Care Team Providers Care Film Editor Name Role Phone Earnest Dorado PA-C Primary Care Provider +1 -[phone] Encounter Details Date Type Department Care Team Description 11/20/2021 Pt. Non Urgent Medical Question Adult Medicine [address] [phone] Earnest Dorado PA-C [address] [place] [address] [phone] Social History Tobacco Use Types Packs/Day Years [...] on filedocumented in this encounter Care Teams Film Editor Relationship Specialty Start Date End Date Earnest Dorado PA-C [address] [place] [address] PCP - General Internal Medicine 02/23/21 documented as of this encounter
--- OUTSIDE RECORDS SUMMARY | 2025-02-21 08:40 | XMS_ITS | Encounter Summary ---
Author Organization [facility] Address [address] [place] [address] Care Team Providers Care It Applications Developer Name Role Phone Dustin Price MD Primary Care Provider + [phone] Earnest Dorado PA-C Primary Care Provider +[phone] Reason for Visit * Reason Onset Date Comments Medication 2020 Encounter Details Date Type Department Care Team Description 2020 Refill Gastroenterology - [address] [place] [phone] Angel Finley MD Medication Social History Tobacco Use Types Packs/Day Years [...] on filedocumented in this encounter Care Teams It Applications Developer Relationship Specialty Start Date End Date Dustin Price MD [address] [place] [address] PCP - General Internal Medicine 09/21/16 02/22/21 Earnest Dorado PA-C [address] [place] [address] [phone] PCP - General Internal Medicine 02/23/21 documented as of this encounter
--- OUTSIDE RECORDS SUMMARY | 2025-02-21 08:40 | XMS_ITS | Encounter Summary ---
Author Organization [facility] Address [address] [place] [address] Care Team Providers Care Balance Bridge Inspector Name Role Phone Earnest Dorado PA-C Primary Care Provider +1 [phone] Reason for Visit * Reason Onset Date Comments Prior Authorization 05/22/2023 Encounter Details Date Type Department Care Team Description 05/22/2023 Telephone Adult Medicine [facility] [address] [place] [address] Earnest Dorado PA-C [address] [place] [address] [phone] Prior Authorization Social History Tobacco Use Types [...] 05/24/23 until 11/24/23 \ Approval faxed to [facility] at [phone] * Telephone Encounter - Ayala Nieves M.A. - 05/23/2023 12:00 PM EDT Prior authorization was completed on cover my meds and came back with pts demographics do not match. Unable to locate pt. Called [facility] [phone] and spoke with Brii . We did [...] pancreatitis? Thank you Please reply back to [id number] Prior Auth Pool Ayala Burgess [facility] Prior Authorization Ext [id number] * Telephone Encounter - Sean Bob - 05/22/2023 9:53 AM EDT Prior Authorization for Medication-do not complete and send this encounter unless you have the fax from the pharmacy. Is this a Cover My Meds request: [place] of Medication oxycodone-acetaminophen (PERCOCET) 5-325 MG per tablet Dose of Medication 5-325 MG per tablet What is the RX # from the faxed refill? [id number] How does patient take this med? Take one tablet by mouth every 8 hours as needed for pain What Pharmacy did the fax come from: [facility] fax #: [phone] Third Libertarian Information from fax: What Prescription Plan does [...] on filedocumented in this encounter Care Teams Balance Bridge Inspector Relationship Specialty Start Date End Date Earnest Dorado PA-C [address] [place] [address] PCP - General Internal Medicine 02/23/21 documented as of this encounter
--- OUTSIDE RECORDS SUMMARY | 2025-02-21 08:40 | XMS_ITS | Clinical Summary ---
Author Organization [facility] Address [address] [place] [address] Care Team Providers Care No Bake Molder Name Role Phone Earnest Dorado PA-C Primary Care Provider +1 -[phone] Allergies Active Allergy Reactions Severity Noted Date [...] Lumbar radiculopathy 06/23/2023 Acute pancreatitis 05/04/2023 Overview: [facility] History of 2019 novel coronavirus diseas [...] EXAM 04/26/202404/263, 04/22/2022, 09/18/2020, Additional history exists DIABETES: BLOOD SUGAR CONTRO L TEST (HGBA1C) 10/05/2024 07/05/2024, 01/25/2024, 01/25/2024, Additional history exists DIABETES: ANNUAL EYE EXAM 07/04/20252023 (External Completion), 07/19/2022 (External Completion), 10/23/2019 (External Completion of test per patient (Patient reports normal results)) DIABETES/HEART DISEASE: NAYELI AL CHOLESTEROL (LDL) 07/05/2025 07/05/2024, 01/25/2024, 04/13/2023, Additional history exists DIABETES: ANNUAL URINE PROTE IN TEST (MICROALBUMIN) 07/05/2025 07/05/2024, 01/25/2024, 04/13/2023, Additional history exists INFLUENZA (Season Ended) 2025 020, 11/21/2018 (Refused), 11/21/2016 BASELINE HEALTH EXAM 40-64 01/24/202601/24, 06/23/2023, 09/18/2020, Additional history exists DTAP/TDAP/TD (3 - Td or Tdap) 09/18/2030 09/18/2020, 08/04/2010 COLON CANCER SCREENING 12/18/2030 (Completed), 12/18/2020, 04/30/2012, Additional history exists PNEUMOCOCCAL VACCINE FOR HIG H RISK PATIENTS (#2) 2043 03/27/2019 Care Teams No Bake Molder Relationship Specialty Start Date End Date Earnest Dorado PA-C [address] [place] [address] PCP - General Internal Medicine 02/23/21
--- OUTSIDE RECORDS SUMMARY | 2025-02-21 08:40 | XMS_ITS | Encounter Summary ---
Author Organization [facility] Address [address] [place] [address] Care Team Providers Care Matrix Inspector Name Role Phone Earnest Dorado PA-C Primary Care Provider +1 [phone] Encounter Details Date Type Department Care Team Description 05/24/2023 Acid Plant Helper Report Medical Records [address] [place] [address] Abstract, Provider Social History Tobacco Use Types [...] on filedocumented in this encounter Care Teams Matrix Inspector Relationship Specialty Start Date End Date Earnest Dorado PA-C [address] [place] [address] PCP - General Internal Medicine 02/23/21 documented as of this encounter
--- OUTSIDE RECORDS SUMMARY | 2025-02-21 08:40 | XMS_ITS | Encounter Summary ---
Author Organization [facility] [place] [address] Care Team Providers Care Mandate Retail Service Merchandiser Name Role Phone Earnest Dorado Primary Care Provider +1 -[phone] Encounter Details Date Type Department Care Team (Late st Contact Info) Description 08/30/2024 11:13 AM EDT Hospital Encounter TH HISTORIC ENCOUNTERS EASTERN CONVERSION ONLY Kade Le MD [address] [place] [phone] Social History Tobacco Use Types Packs/Day [...] daughter. 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 He has 1 son [...] Description 02/28/2025 9:00 AM EDT Office Visit [facility] Hematology Oncology [address] [place] [phone] Kade Le MD [address] [place] [address] 03/28/2025 9:40 AM EDT Office Visit Endocrinology - [place] [address] [place] [phone] Jazmin Valera PA [address] [place] [address] documented as of this encounter Visit Diagnoses Not on filedocumented in this encounter Care Teams Mandate Retail Service Merchandiser Relationship Specialty Start Date End Date Earnest Dorado PA PCP - General Internal Medicine 02/23/21 10/08/24 documented as of this encounter
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
--- OUTSIDE RECORDS SUMMARY | 2025-02-21 08:40 | XMS_ITS | Clinical Summary ---
Author Organization [facility] Address [address] [place], [place] [id number] Care Team Providers Care Facility Coordinator Name Role Phone Earnest Dorado PA-C Primary [...] age to complete this topic Care Teams Facility Coordinator Relationship Specialty Start Date End Date Earnest Dorado PA-C PCP - General Medical Services 07/09/24
--- OUTSIDE RECORDS SUMMARY | 2025-02-21 08:40 | XMS_ITS | Encounter Summary ---
Author Organization [facility] Address [address] [place] [address] Care Team Providers Care Quality Control Assessor Name Role Phone Earnest Dorado PA-C Primary Care Provider [phone] -[phone] Reason for Visit * Reason Onset Date Comments APPOINTMENT 09/27/2023 Encounter Details Date Type Department Care Team Description 09/27/2023 Telephone Adult Medicine [facility] [address] [place] [address] Earnest Dorado PA-C [address] [place] [address] APPOINTMENT Social History Tobacco Use Types Packs/Day [...] on filedocumented in this encounter Care Teams Quality Control Assessor Relationship Specialty Start Date End Date Earnest Dorado PA-C [address] [place] [address] PCP - General Internal Medicine 02/23/21 documented as of this encounter
--- OUTSIDE RECORDS SUMMARY | 2025-02-21 08:40 | XMS_ITS | Encounter Summary ---
Author Organization [facility] Address [address] [place] [address] Care Team Providers Care Drawbench Operator Name Role Phone Joseph Domingo MD Primary Care Provider Derik Hoffmann MD Primary Care Provider [facility], Pcp Primary Care Provider Dustin Allen MD Primary Care Provider [phone] Earnest Dorado PA-C Primary Care Provider Encounter Details Date Type Department Care Team Description 01/25/2011 Hospital Medical Records [address] [place] [address] Justin Patrick MD [address] [place] [address] [phone] Social History Tobacco Use Types Packs/Day Years [...] on filedocumented in this encounter Care Teams Drawbench Operator Relationship Specialty Start Date End Date Joseph Domingo MD PCP - General 07/12/10 11/12/14 Derik Kaminski MD PCP - General Internal Medicine 11/17/14 10/25/15 [facility], Pcp PCP - General Internal Medicine 10/26/15 09/20/16 Dustin Price MD [address] [place] [address] PCP - General Internal Medicine 09/21/16 02/22/21 Earnest Dorado PA-C [address] [place] [address] PCP - General Internal Medicine 02/23/21 documented as of this encounter
--- OUTSIDE RECORDS SUMMARY | 2025-02-21 08:40 | XMS_ITS | Encounter Summary ---
Author Organization [facility] Address [address] [place] [address] Care Team Providers Care Edge Sawyer Name Role Phone Earnest Dorado PA-C Primary Care Provider +1 -[phone] Encounter Details Date Type Department Care Team Description 04/01/2023 CGM Report Medical Records [address] [place] [address] Abstract, Provider Social History Tobacco Use Types [...] on filedocumented in this encounter Care Teams Edge Sawyer Relationship Specialty Start Date End Date Earnest Dorado PA-C [address] [place] [address] PCP - General Internal Medicine 02/23/21 documented as of this encounter
--- OUTSIDE RECORDS SUMMARY | 2025-02-21 08:40 | XMS_ITS | Encounter Summary ---
Author Organization [facility] Address [address] [place] [address] Care Team Providers Care Lawnmower Mechanic Name Role Phone Earnest Dorado PA-C Primary Care Provider +1 -[phone] Encounter Details Date Type Department Care Team Description 09/07/2023 Refill Endocrinology - [address] [address] Jazmin Valera PA-C [address] [place] [address] Social History Tobacco Use Types Packs/Day Years [...] on filedocumented in this encounter Care Teams Lawnmower Mechanic Relationship Specialty Start Date End Date Earnset Dorado PA-C [address] [place] [address] [phone] PCP - General Internal Medicine 02/23/21 documented as of this encounter
--- OUTSIDE RECORDS SUMMARY | 2025-02-21 08:40 | XMS_ITS | Encounter Summary ---
Author Organization [facility] Address [address] [place] [address] Care Team Providers Care Sap Technical Developer Name Role Phone Earnest Dorado PA-C Primary Care Provider +1 -[phone] Encounter Details Date Type Department Care Team Description 08/23/2023 Telephone Adult Medicine [address] [address] Earnest Dorado PA-C [address] [place] [address] Social History Tobacco Use Types Packs/Day Years [...] on filedocumented in this encounter Care Teams Sap Technical Developer Relationship Specialty Start Date End Date Earnest Dorado PA-C [address] [place] [address] [phone] PCP - General Internal Medicine 02/23/21 documented as of this encounter
--- OUTSIDE RECORDS SUMMARY | 2025-02-21 08:40 | XMS_ITS | Encounter Summary ---
Author Organization [facility] Address [address] [place] [address] Care Team Providers Care Engineer Specialist Name Role Phone Earnest Dorado PA-C Primary Care Provider +1 -[phone] Encounter Details Date Type Department Care Team Description 10/22/2022 CGM Report Medical Records [address] [place] [address] Abstract, Provider Social History Tobacco Use Types [...] on filedocumented in this encounter Care Teams Engineer Specialist Relationship Specialty Start Date End Date Earnest Dorado PA-C [address] [place] [address] PCP - General Internal Medicine 02/23/21 documented as of this encounter
--- OUTSIDE RECORDS SUMMARY | 2025-02-21 08:40 | XMS_ITS | Encounter Summary ---
Author Organization [facility] Address [address] [place] [address] Care Team Providers Care Office Clerk Assistant Name Role Phone Earnest Dorado PA-C Primary Care Provider +1 -[phone] Encounter Details Date Type Department Care Team Description 06/16/2023 Pt. Non Urgent Medical Question Endocrinology - [address] [address] Jazmin Valera PA-C [address] [place] [address] [phone] Social History Tobacco Use Types Packs/Day Years [...] encounter Miscellaneous Notes * Telephone Encounter - Marcella Merlos M.A. - 06/16/2023 4:16 PM EDTFrom: Toan Hussein To: Osmany Valera Sent: 06/16/2023 4:04 PM EDT Subject: Diabetes and insulin Hi Jazmin, just checking in. Im at the maximum 10 units for 2 days. My fasting blood sugar is a 200 and if i eat anything it jumps to shy of 300. Will documented in this encounter Plan of Treatment Not on file documented as of this encounter Visit Diagnoses Not on filedocumented in this encounter Care Teams Office Clerk Assistant Relationship Specialty Start Date End Date Earnest Dorado PA-C [address] [place] [address] PCP - General Internal Medicine 02/23/21 documented as of this encounter
--- OUTSIDE RECORDS SUMMARY | 2025-02-21 08:40 | XMS_ITS | Encounter Summary ---
Author Organization [facility] Address [address] [place] [address] Care Team Providers Care Key Cutter Name Role Phone Joseph Browen MD Primary Care Provider Derik Hoffmann MD Primary Care Provider [facility], Pcp Primary Care Provider Dustin Allen MD Primary Care Provider + [phone] Earnest Dorado PA-C Primary Care Provider +1 -[phone] Reason for Visit * Reason Onset Date Comments Note, Work 02/04/2013 Encounter Details Date Type Department Care Team Description 02/04/2013 Telephone Adult [address] [address] Joseph Browne MD Note, Work Social History [...] VITAMIN MENS) TABS Take by mouth. ??? [id number] OR Take by mouth. ??? B [...] this am. PCP: Joseph Browne MD Payor: [facility] Plan[facility] Product Type: HMO Ciu-byh-Autxxdj documented in this encounter Plan of Treatment Not on file documented as of this encounter Visit Diagnoses Not on filedocumented in this encounter Care Teams Key Cutter Relationship Specialty Start Date End Date Joseph Browne MD PCP - General 07/12/10 11/12/14 Derik Kaminski MD PCP - General Internal Medicine 11/17/14 10/25/15 [facility], Pcp PCP - General Internal Medicine 10/26/15 09/20/16 Dustin Price MD [address] [place] [address] PCP - General Internal Medicine 09/21/16 02/22/21 Earnest Dorado PA-C [address] [place] [address] PCP - General Internal Medicine 02/23/21 documented as of this encounter
--- OUTSIDE RECORDS SUMMARY | 2025-02-21 08:40 | XMS_ITS | Encounter Summary ---
Author Organization [facility] Address [address] [place] [address] Care Team Providers Care Gamemaster Name Role Phone Dustin Price MD Primary Care Provider + [phone] Earnest Dorado PA-C Primary Care Provider [phone] Encounter Details Date Type Department Care Team Description 07/06/2017 Telephone Adult Medicine [address] [phone] Dustin Price MD [address] [place] [address] [phone] Social History Tobacco Use Types Packs/Day Years [...] Humphries R.N. - 07/06/2017 9:07 AM EDT [phone] (home) [phone] (work) Pt brought into holding area, explained [...] Buttock documented in this encounter Care Teams Gamemaster Relationship Specialty Start Date End Date Dustin Price MD [address] [place] [address] PCP - General Internal Medicine 09/21/16 02/22/21 Earnest Dorado PA-C [address] [place] [address] PCP - General Internal Medicine 02/23/21 documented as of this encounter
--- OUTSIDE RECORDS SUMMARY | 2025-02-21 08:40 | XMS_ITS | Encounter Summary ---
Author Organization [facility] Address [address] [place] [address] Care Team Providers Care Television Engineering Teacher Name Role Phone Dustin Price MD Primary Care Provider + [phone] Earnest Dorado PA-C Primary Care Provider +[phone] Encounter Details Date Type Department Care Team Description 08/01/2019 Refill Adult Medicine [address] [phone] Earnest Dorado PA-C [address] [place] [address] [phone] Social History Tobacco Use Types Packs/Day Years [...] encounter Miscellaneous Notes * Telephone Encounter - Sindy Perez C.M.A. - 08/01/2019 3:34 PM EDTFrom: Toan Hussein To: Earnest Dorado PA-C Sent: 08/01/2019 3:30 PM EDT Subject: Medication Renewal Request Original authorizing provider: Earnest Dorado PA-C Toan Hussein would like a refill of the following medications: atorvastatin (LIPITOR) 80 MG tablet [Earnest Dorado PA-C] [id number] [place], [place] [facility] [address] [facility] Comment: documented in this encounter Plan of Treatment Not on file documented as of this encounter Visit Diagnoses Diagnosis Left lumbar radiculopathy Thoracic or lumbosacral neuritis or radiculitis, unspecified Type 2 diabetes mellitus without complication, without long-term current use of insulin (HCC) Pure hypercholesterolemia documented in this encounter Care Teams Television Engineering Teacher Relationship Specialty Start Date End Date Dustin Priec MD [address] [place] [address] PCP - General Internal Medicine 09/21/16 02/22/21 Earnest Dorado PA-C [address] [place] [address] PCP - General Internal Medicine 02/23/21 documented as of this encounter
--- OUTSIDE RECORDS SUMMARY | 2025-02-21 08:40 | XMS_ITS | Encounter Summary ---
Author Organization [facility] Address [address] [place] [address] Care Team Providers Care Screener Operator Name Role Phone Earnest Dorado PA-C Primary Care Provider +[phone] Reason for Visit * Reason Onset Date Comments Mychart Rx Refill 10/20/2021 Encounter Details Date Type Department Care Team Description 10/20/2021 Refill Adult Medicine [address] [address] Laury Schneider PA-C Mychart Rx Refill Social History Tobacco Use Types Packs/Day [...] encounter Miscellaneous Notes * Telephone Encounter - Shereen Cantu M.A. - 10/22/2021 9:55 AM EST LRF 02/19/21 for 1 years supply, Mychart sent to patient to advise further. documented in this encounter Plan of Treatment Not on file documented as of this encounter Visit Diagnoses Diagnosis Type 2 diabetes mellitus without complication, without long-term current use of insulin (HCC) documented in this encounter Care Teams Screener Operator Relationship Specialty Start Date End Date Earnest Dorado PA-C [address] [place] [address] PCP - General Internal Medicine 02/23/21 documented as of this encounter
--- OUTSIDE RECORDS SUMMARY | 2025-02-21 08:40 | XMS_ITS | Encounter Summary ---
Author Organization [facility] Address [address] [place] [address] Care Team Providers Care Shipping Clerk/Admin Name Role Phone Earnest Doardo PA-C Primary Care Provider [phone] Encounter Details Date Type Department Care Team Description 05/15/2023 Pt. Non Urgent Medical Question Adult Medicine [address] [id number] Cherise Singh PA-C [address] [place] [address] [id number] Social History Tobacco Use Types Packs/Day Years [...] Recorded In the last 10 days, have andrzej vincent been in contact with someone who was confirmed or suspected to have Coronavirus/COVID-19? No / Unsure 05/09/2023 10:08 AM EDT documented as of this encounter Progress Notes * Shi Buckley R.N. - 05/15/2023 3:11 PM EDT Taking the omeprazole and is improved until he eats then has more stomach pain The stomach and the back pain go together. The back pain is there all the time When the stomach acts up then the back pain intensifies. When he eats the back pain goes to 8-9/10. The back pain does not let up once it escalates and willstay elevated the rest of the day Pain med given helped but did not totally take away the pain. Would be able to get some rest and was able to go to work. He has an appointment with physiatry on 05/18 Asking for help to get to that appointment Please advise documented in this encounter Miscellaneous Notes * Telephone Encounter - Latasha Peet M.A. - 05/15/2023 1:48 PM EDTFrom: Toan Savage To: Johnnie Singh Sent: 05/15/2023 1:47 PM EDT Subject: Back and stomach pain Hi Kika. Im reaching out looking for help. Im not sure where to go. I havent been getting any reaponses to my messages. Im in serious pain in my back. My stomach is still bothering. It feels like there is a pit or pressure in my stomach like an air bubble that wont go away. The worst part is my back. I have been out of the perc ocet for a while now and lj been trying to take aspirin, but i havent been eating a lot because when i eat, my stomach hurts more, therefor I havent really taken much aspirin because of empty stomach. Im still waiting for my mri results, but keven what to do about the pain. Is there anything u can give me? No position makea it better. Not standing, sitting, or laying d own. Im out of options and feel like im not getting any info. Can you please help? documented in this encounter Plan of Treatment Not on file documented as of this encounter Visit Diagnoses Not on filedocumented in this encounter Care Teams Shipping Clerk/Admin Relationship Specialty Start Date End Date Earnest Dorado PA-C [address] [place] [address] PCP - General Internal Medicine 02/23/21 documented as of this encounter
--- OUTSIDE RECORDS SUMMARY | 2025-02-21 08:40 | XMS_ITS | Encounter Summary ---
[facility] Organization [facility] Address [address] [place] [address] Care Team Providers Care Automobile Contract Clerk Name Role Phone Joseph Domingo MD Primary Care Provider Derik Hoffmann MD Primary Care Provider [facility], Pcp Primary Care Provider Dustin Allen MD Primary Care Provider [phone] Earnest Dorado PA-C Primary Care Provider [phone] Encounter Details Date Type Department Care Team Description 07/14/2014 Speech Language Pathology Assistant Report Medical Records [address] [place] [id number] Owen Sharma Social History Tobacco Use Types [...] on filedocumented in this encounter Care Teams Automobile Contract Clerk Relationship Specialty Start Date End Date Joseph Domingo MD PCP - General 07/12/10 11/12/14 Derik Kaminski MD PCP - General Internal Medicine 11/17/14 10/25/15 [facility], Pcp PCP - General Internal Medicine 10/26/15 09/20/16 Dustin Price MD [address] [place] [address] PCP - General Internal Medicine 09/21/16 02/22/21 Earnest Dorado PA-C [address] [place] [address] PCP - General Internal Medicine 02/23/21 documented as of this encounter
--- OUTSIDE RECORDS SUMMARY | 2025-02-21 08:40 | XMS_ITS | Encounter Summary ---
Author Organization [facility] [employer] [facility] Address [address] [place] [address] Care Team Providers Care Special Procedures Tech Name Role Phone Earnest Dorado PA-C Primary Care Provider [phone] Encounter Details Date Type Department Care Team Description 06/14/2023 Orders Only Medical Records [address] [place] [address] Jovanny Kennedy MD Social History Tobacco Use Types Packs/Day Years [...] Procedure Name Priority Date/Time Associated Diagnosis Comments OUTSIDE IMAGING Routine 05/30/2023 documented in this encounter Results * OUTSIDE IMAGING (05/30/2023) Jovanny Kennedy MD RADIOLOGY documented in this encounter Visit Diagnoses Not on filedocumented in this encounter Care Teams Special Procedures Tech Relationship Specialty Start Date End Date Earnest Dorado PA-C [address] [place] [address] PCP - General Internal Medicine 02/23/21 documented as of this encounter
--- OUTSIDE RECORDS SUMMARY | 2025-02-21 08:40 | XMS_ITS | Encounter Summary ---
Author Organization [facility] Address [address] [place] [address] Care Team Providers Care Bone Puller Name Role Phone Dustin Price MD Primary Care Provider [phone] Earnest Dorado PA-C Primary Care Provider [phone] Reason for Visit * Reason Onset Date Comments Prior Authorization 04/03/2019 colonoscopy Encounter Details Date Type Department Care Team Description 04/03/2019 Telephone Gastroenterology - [address] [place] [address] Angel Finley MD Prior Authorization [...] for an colonoscopy on 07/22/19 Patients insurance: [employer] [id number] Appointment is with Angel Finley MD Code to process pre-auth for: [id number] Location of procedure: [facility] documented in this encounter Plan of Treatment Not on file documented as of this encounter Visit Diagnoses Not on filedocumented in this encounter Care Teams Bone Puller Relationship Specialty Start Date End Date Dustin Price MD [address] [place] [address] PCP - General Internal Medicine 09/21/16 02/22/21 Earnest Dorado PA-C [address] [place] [address] PCP - General Internal Medicine 02/23/21 documented as of this encounter
--- OUTSIDE RECORDS SUMMARY | 2025-02-21 08:40 | XMS_ITS | Clinical Summary ---
Author Organization [facility] [address] [place] [address] [place] [address] [place] [address] Phone Care Team Providers Care Glaze Mixer Name Role Phone Earnest Dorado Primary Care Provider [phone] Allergies Active Allergy Reactions Criticality Noted Date [...] WEEK, THEN INCREASE TO 1 TABLET DAILY 90 tablet 1 01/29/20 25 Active sertraline (ZOLOFT) 50 mg tablet TAKE 1/2 TABLET BY MOUTH DAILY FOR 1 WEEK, THEN INCREASE TO 1 TABLET DAILY 30 tablet 12/27/19 25 025 Discontinued Active Problems Problem Noted Date Diagnosed Date Hereditary hemochromatosis ([facility] V24) 024 Lumbar radiculopathy 06/23/2023 Acute pancreatitis 05/04/2023 Overview (09/27/2024): [facility] ER History of 2019 novel coronavirus disease (COVID -19) 07/19/2022 Diabetes mellitus type 2 wit h neurological manifestations ([facility] V24, [facility] V28) 09/18/2020 Diabetic neuropathy ([facility] V24, [facility] V28) 1 11/18/2019 Deviated septum 11/21/2016 Umbilical hernia 11/21/2016 IBS (irritable bowel syndrome) 02/19/2013 Overview (09/27/2024): Diarrhea predominant, onset 2010. Post-op pain 02/10/2011 Dysuria 01/31/2011 Hyperlipidemia 08/06/2010 Acne 07/13/2010 Encounters Date Type Department Care Team Description 12/17/2024 6:56 AM EST - 12/17/2024 11:59 PM EST Hospital Encounter [facility] Pain Management [address] [place] [phone] Jovanny Kennedy MD Radiculopathy, lumbar region Discharge Disposition: Home or Self Care 12/17/2024 6:00 AM EST - 12/17/2024 11:59 PM EST Hospital Encounter [facility] Xray [address] [place] [address] Pain Discharge Disposition: Home or Self Care 12/06/2024 9:15 AM EST Office Visit [facility] Hematology Oncology [address] [place] [phone] Kade Le MD Hereditary hemochromatosis ([facility] V24) (Primary Dx) 11/29/2024 9:20 AM EST Office Visit Endocrinology [facility] [address] [place] [address] Jazmin Valera PA Diabetes mellitus type 2 with neurological manifestations ([facility] V24, [facility] V28) (Primary Dx); Hyperlipidemia, unspecified hyperlipidemia type from Last 3 Months Immunizations Name Administration [...] screening needed for 10 years. Diabetes mellitus (CMS/HCC V 24, CMS/HCC V28) DX:Diabetes mellitus (HCC) Pancreatitis DX:Pancreatitis Depression Hard to [...] 9:00 AM EDT Office Visit [facility] Hematology Oncology [address] [place] [address] Kade Le MD [address] [place] [phone] 03/28/2025 9:40 AM EDT Office Visit Endocrinology - [place] [address] [place] [address] Jazmin Valera PA [address] [place] [address] Health Maintenance Due Date Last Done Comments [...] Vaccine ( - 2023-2 5 season) 2024 Diabetes: Blood Sugar Contro l Test (HGBA1C) 01/05/2025 07/05/2024, 07/05/2024 Diabetes: Annual Retina Eye Exam 07/04/2025 07/04/2024 Diabetes: Annual Urine Albumin-Creatinine Ratio (uACR) 07/05/2025 07/05/2024 Diabetes: Annual GFR (Glomerular Filtration Rate) 07/05/2025 07/05/2024, 07/05/2024 Influenza Vaccine (Season Ended) 2025 09/18/2020, 11/21/2016 Cholesterol Screening (Lipid Panel) 07/05/2029 07/05/2024, 07/05/2024 [...] age to complete this topic Meningococcal B Vaccine Aged Out No l onger eligible based on patient's age to complete [...] HOUR Routine 12/17/2024 7:48 AM EST Pain URINE ALBUMIN CREATININE RATIO Routine 07/05/2024 ANNUAL [...] Signed Date: 12/17/2024 13:20 ET Workstation ID: [id number] Transcribed By: Self Edit Transcribed Date: 12/17/2024 [...] Signed Date: 12/17/2024 13:20 ET Workstation ID: [id number] Transcribed By: Self Edit Transcribed Date: 12/17/2024 13:15 ET Jovanny Kennedy MD IMG FLUOROSCOPY PROCEDURES Fin al Result * Urine Albumin Creatinine Ratio (07/05/2024) Urine Albumin Creatinine Ratio abstracted us Historical Provider HEALTH MAINTENANCE Final Result * Annual BMP Blood Test (07/05/2024) [facility] Annual BMP Blood Test abstracted Result [facility] Provider HEALTH MAINTENANCE Final Result * Hemoglobin A1c (07/05/2024) [facility] Hemoglobin A1C 5.5 <=6.5 % Blood Venous blood specimen / Unknown Result [facility] Provider LAB BLOOD ORDERABLES Nadya l Result * (ABNORMAL) Lipid panel (07/05/2024) [facility] LDL/HDL Ratio 2 0 - 4 Triglycerides 169(A) 0 - 150 mg/dL Cholesterol 112 0 - 200 mg/dL HDL 52 >=40 mg/dL LDL Cholesterol 27 0 - 100 mg/dL Blood Venous blood specimen / Unknown Result [facility] Provider LAB BLOOD ORDERABLES Nadya l Result * Diabetes Eye Exam (07/04/2024) [facility] Diabetes: Annual Retina Eye Exam abstracted Result [facility] Provider HEALTH MAINTENANCE Final Result * Diabetes Foot Exam (04/26/2023) [facility] Diabetes: Annual Foot Exam abstracted Result Counts include 234 beds at the [facility] HEALTH MAINTENANCE Final Result * Colonoscopy (12/18/2020) [facility] Colonoscopy no inperatati on,abstact ed Anatomical Region Laterality Modality Other Result [facility] Provider HEALTH MAINTENANCE Final Result * HIV Screening (04/15/2015) [facility] HIV Screening abstracted Result [facility] Provider HEALTH MAINTENANCE Final Result from Last 3 Months or Most Recently Relevant to Health Maintenance Insurance [employer] Care Teams Glaze Mixer Relationship Specialty Start Date End Date Earnest Dorado PA [address] [facility] [place] [address] PCP - General Internal Medicine 10/09/24
--- OUTSIDE RECORDS SUMMARY | 2025-02-21 08:40 | XMS_ITS | Encounter Summary ---
Author Organization [facility] Address [address] [place] [address] Care Team Providers Care Certifier Name Role Phone Joseph Domingo MD Primary Care Provider Derik Hoffmann MD Primary Care Provider [facility], Pcp Primary Care Provider Dustin Allen MD Primary Care Provider [phone] Earnest Dorado PA-C Primary Care Provider [phone] Encounter Details Date Type Department Care Team Description 02/08/2011 Release of Information Medical Records [address] [place] [id number] Abstract, Provider Social History Tobacco Use Types Packs/Day Years Used Date Smoking Tobacco: Former Cigarettes 5 Alcohol Use Standard Drinks/Week Comments Yes 2.5 (1 standard drink = 0.6 oz p ure alcohol) Sex Assigned at Date Recorded Male 04/27/2021 8:52 AM E DT Job Start Date Occupation Industry Not on file Not on file Not on file documented as of this encounter Plan of Treatment Not on file documented as of this encounter Visit Diagnoses Not on filedocumented in this encounter Care Teams Certifier Relationship Specialty Start Date End Date Joseph Domingo MD PCP - General 07/12/10 11/12/14 Derik Kaminski MD PCP - General Internal Medicine 11/17/14 10/25/15 [facility], Pcp PCP - General Internal Medicine 10/26/15 09/20/16 Dustin Price MD [address] [place] [address] [id number] PCP - General Internal Medicine 09/21/16 02/22/21 Earnest Dorado PA-C [address] [place] [address] PCP - General Internal Medicine 02/23/21 documented as of this encounter
--- OUTSIDE RECORDS SUMMARY | 2025-02-21 08:40 | XMS_ITS | Encounter Summary ---
Author Organization [facility] Address [address] [place] [address] Care Team Providers Care Bandage Wrapping Machine Operator Name Role Phone Dustin Price MD Primary Care Provider [phone] Earnest Dorado PA-C Primary Care Provider [phone] Encounter Details Date Type Department Care Team Description 04/15/2019 Pt. Non Urgent Medic al Question Physiatry - [address] [address] Artur Crocker DO Social History Tobacco Use [...] on filedocumented in this encounter Care Teams Bandage Wrapping Machine Operator Relationship Specialty Start Date End Date Dustin Price MD [address] [place] [address] PCP - General Internal Medicine 09/21/16 02/22/21 Earnest Dorado PA-C [address] [place] [address] PCP - General Internal Medicine 02/23/21 documented as of this encounter
== END 2025-02-21 08:38 | disposition home or self-care (01) ==
LOC: HO.BBR 08:37
PROVIDERS: PCP Physician Assistant Medical; Visit Provider Internal Medicine Hematology & Oncology
DX: Z13.89 Encounter for screening for other disorder (principal)

== ENCOUNTER 2025-03-07 08:51 | Outpatient (REF) | payer OTHER, SELFPAY ==
--- OUTSIDE RECORDS SUMMARY | 2025-03-07 09:00 | XMS_ITS | Encounter Summary ---
Author Organization [facility] [place] [address] Care Team Providers Care Band Lining Bander Name Role Phone Earnest Dorado Primary Care Provider [phone] Encounter Details Date Type Department Care Team (Late st Contact Info) Description 08/30/2024 11:13 AM EDT Hospital Encounter TH HISTORIC ENCOUNTERS EASTERN CONVERSION ONLY Kade Le MD [address] [place] [address] Social History Tobacco Use Types Packs/Day [...] daughter. 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 He has 1 son [...] Care Team (Late st Contact Info) Description 03/28/2025 9:40 AM EDT Office Visit Endocrinology - [address] [address] Jazmin Valera PA [address] [place] [address] 05/29/2025 9:15 AM EDT Office Visit [facility] Hematology Oncology [address] [place] [phone] Kade Le MD [address] [place] [phone] documented as of this encounter Visit Diagnoses Not on filedocumented in this encounter Care Teams Band Lining Bander Relationship Specialty Start Date End Date Earnest Dorado PA PCP - General Internal Medicine 02/23/21 10/08/24 documented as of this encounter
--- OUTSIDE RECORDS SUMMARY | 2025-03-07 09:00 | XMS_ITS | Clinical Summary ---
Author Organization [facility] [address] [place] [address] [place] [address] [place] [address] Phone Care Team Providers Care System Support Developer Name Role Phone Earnest Dorado Primary Care Provider +1 [phone] Allergies Active Allergy Reactions Criticality Noted Date Comments Erythromycin Swelling High 06/07/2021 Swollen eyes Medications atorvastatin (LIPITOR) 80 mg tablet Take 1 tablet (80 mg total) by mouth 1 (one) time each day. 4 Active fluticasone propionate (FLONASE) 50 mcg/actuation nasal spray Administer 2 sprays into each nostril 1 (one) time each day. Active oxyCODONE-aceta minophen (PERCOCET) 5-325 mg per tablet Take 1 tablet by mouth every 8 (eight) hours if needed. 3 Active BD Ultra-Fine Short Pen Needle 31 gauge x 5/16 needle USE DIRECTED WITH INSULIN PEN 4 TIMES DAILY 400 each 1 4 Active omeprazole (PriLOSEC) [address] capsule TAKE 1 CAPSULE BY MOUTH DAILY 90 capsule 3 4 Active insulin glargine,hum.re c.anlog (Basaglar KwikPen U-100 Insulin) 100 unit/mL (3 mL) injection pen Inject 26 Units under the skin 1 (one) time each day. 15 mL 2 5 Active insulin aspart, niacinamide, (Fiasp FlexTouch U-100 Insulin) 100 unit/mL (3 mL) injection pen Inject 4-6 Units under the skin 3 (three) times a day before meals. 15 mL 2 5 Active blood-glucose sensor (FreeStyle Jamil 3 Plus Sensor) deviceIndicatio ns:Jamil 3 not available Box = Kit = EA. Use 1 sensor every 2 weeks. 6 each 2 5 Active metFORMIN XR (GLUCOPHAGE-XR) 500 mg 24 hr tablet TAKE 2 TABLETS BY MOUTH TWICE DAILY WITH FOOD 360 tablet 1 5 Active sertraline (ZOLOFT) 50 mg tablet TAKE 1/2 TABLET BY MOUTH DAILY FOR 1 WEEK, THEN INCREASE TO 1 TABLET DAILY 90 tablet 1 5 Active Active Problems Problem Noted Date Diagnosed Date Hereditary hemochromatosis ([facility] V24) 024 Lumbar radiculopathy 06/23/2023 Acute pancreatitis 05/04/2023 Overview (09/27/2024): [facility] ER History of 2019 novel coronavirus disease (COVID -19) 07/19/2022 Diabetes mellitus type 2 wit h neurological manifestations ([facility] V24, [facility] V28) 09/18/2020 Diabetic neuropathy ([facility] V24, [facility] V28) 1 11/18/2019 Deviated septum 11/21/2016 Umbilical hernia 11/21/2016 IBS (irritable bowel syndrome) 02/19/2013 Overview (09/27/2024): Diarrhea predominant, onset 2010. Post-op pain 02/10/2011 Dysuria 01/31/2011 Hyperlipidemia 08/06/2010 Acne 07/13/2010 Encounters Date Type Department Care Team Description 02/28/2025 9:00 AM EDT Office Visit [facility] Hematology Oncology [address] [place] [address] Kade Le MD Hereditary hemochromatosis ([facility] V24) (Primary Dx) 12/17/2024 6:56 AM EST - 12/17/2024 11:59 PM EST Hospital Encounter [facility] Pain Management [address] [place] [address] Jovanny Kennedy MD Radiculopathy, lumbar region Discharge Disposition: Home or Self Care 12/17/2024 6:00 AM EST - 12/17/2024 11:59 PM EST Hospital Encounter [facility] Xray [address] [place] [address] Pain Discharge Disposition: Home or Self Care from [...] Sign Reading Time Taken Comments Blood Pressure 125/79 02/28/2025 8:56 AM EDT Pulse 78 02/28/2025 8:56 AM EDT Temperature 36.3 ??C (97.3 ??F) 02/28/2025 8:56 AM ED T Respiratory Rate 16 12/17/2024 7:53 AM EST Oxygen Saturation 98% 02/28/2025 8:56 AM EDT Inhaled Oxygen Concentration - - Weight 78 kg (172 lb) 02/28/2025 8:56 AM EDT Height 172.7 cm (5' 8 ) 12/17/2024 7:23 AM EST Body Mass Index 26.15 12/17/2024 7:23 AM EST Plan of Treatment Upcoming Encounters Date Type Department Care Team (Late st Contact Info) Description 03/28/2025 9:40 AM EDT Office Visit Endocrinology - [place] [address] [place] [address] Jazmin Valera PA [address] [place] [address] 05/29/2025 9:15 AM EDT Office Visit [facility] Hematology Oncology [address] [place] [address] Kade Le MD [address] [place] [address] Health Maintenance Due Date Last Done Comments [...] 04/26/2023 COVID-19 Vaccine (2023-2 5 season) 2024 Diabetes: Blood Sugar Contro l Test (HGBA1C) 01/05/2025 07/05/2024, 07/05/2024 Diabetes: Annual Retina Eye Exam 07/04/2025 07/04/2024 Diabetes: Annual Urine Albumin-Creatinine Ratio (uACR) 07/05/2025 07/05/2024 Influenza Vaccine (Season Ended) 2025 09/18/2020, 11/21/2016 Diabetes: Annual GFR (Glomerular Filtration Rate) 02/28/2026 02/28/2025, 07/05/2024, 07/05/2024 Cholesterol Screening (Lipid Panel) 07/05/2029 [...] Procedure Name Priority Date/Time Associated Diagnosis Comments CBC WITH AUTO DIFFERENTIAL Routine 02/28/2025 9:25 AM EDT Hereditary hemochromatosis ([facility] V24) IRON AND TIBC Routine 02/28/2025 9:25 AM EDT Hereditary hemochromatosis ([facility] V24) FERRITIN Routine 02/28/2025 9:25 AM EDT Hereditary hemochromatosis ([facility] V24) CBC AND DIFFERENTIAL Routine 02/28/2025 9:25 AM EDT Hereditary hemochromatosis ([facility] V24) COMPREHENSIVE METABOLIC PANEL Routine 02/28/2025 9:25 AM EDT Hereditary hemochromatosis (CMS/HCC V24) XR FLUORO UP TO 1 HOUR Routine 12/17/2024 7:48 AM EST Pain HM URINE ALBUMIN CREATININE RATIO Routine 07/05/2024 HEMOGLOBIN A1C Routine 07/05/2024 LIPID PANEL Routine 07/05/2024 HM DIABETES EYE EXAM Routine 07/04/2024 DIABETES FOOT EXAM Routine 04/26/2023 COLONOSCOPY Routine 12/18/2020 HIV SCREENING Routine 04/15/2015 from Last 3 Months or Most Recently Relevant to Health Maintenance Results * (ABNORMAL) CBC auto differential (02/28/2025 9:25 AM EDT) WBC 7.9 4.8 - 10.8 K/mcL LAB HEMETOLOGY METHOD 02/28/2025 11:29 AM [facility] RBC 4.60 4.50 - 5.50 M/mcL LAB HEMETOLOGY METHOD 02/28/2025 11:29 AM [facility] Hemoglobin 15.1 13.5 - 17.5 g/dL LAB HEMETOLOGY METHOD 02/28/2025 11:29 AM [facility] Hematocrit 42.7 42.0 - 54.0 % LAB HEMETOLOGY METHOD 02/28/2025 11:29 AM [facility] MCV 92.6 79.0 - 98.0 FL LAB HEMETOLOGY METHOD 02/28/2025 11:29 AM [facility] MCH 32.8(H) 27.0 - 32.0 pcg LAB HEMETOLOGY METHOD 02/28/2025 11:29 AM [facility] MCHC 35.4 32.0 - 37.0 g/dL LAB HEMETOLOGY METHOD 02/28/2025 11:29 AM [facility] RDW 12.0 11.0 - 15.0 % LAB HEMETOLOGY METHOD 02/28/2025 11:29 AM [facility] Platelets 302 130 - 400 K/mcL LAB HEMETOLOGY METHOD 02/28/2025 11:29 AM [facility] MPV 9.6 7.0 - 11.0 FL LAB HEMETOLOGY METHOD 02/28/2025 11:29 AM [facility] NRBC 0.0 <1.0 % LAB HEMETOLOGY METHOD 02/28/2025 11:29 AM [facility] NRBC Absolute 0.00 <0.10 K/mcL LAB HEMETOLOGY METHOD 02/28/2025 11:29 AM [facility] Neutrophils Relative 60.2 % LAB HEMETOLOGY METHOD 02/28/2025 11:29 AM [facility] Lymphocytes Relative 26.6 % LAB HEMETOLOGY METHOD 02/28/2025 11:29 AM [facility] Monocytes Relative 8.0 % LAB HEMETOLOGY METHOD 02/28/2025 11:29 AM [facility] Eosinophils Relative 3.4 % LAB HEMETOLOGY METHOD 02/28/2025 11:29 AM [facility] Basophils Relative 1.3 % LAB HEMETOLOGY METHOD 02/28/2025 11:29 AM [facility] Immature Granulocytes Relative 0.5 % LAB HEMETOLOGY METHOD 02/28/2025 11:29 AM [facility] Neutrophils Absolute 4.73 1.50 - 7.00 K/mcL LAB HEMETOLOGY METHOD 02/28/2025 11:29 AM [facility] Lymphocytes Absolute 2.09 1.00 - 5.00 K/mcL LAB HEMETOLOGY METHOD 02/28/2025 11:29 AM [facility] Monocytes Absolute 0.63 0.20 - 1.00 K/mcL LAB HEMETOLOGY METHOD 02/28/2025 11:29 AM [facility] Eosinophils Absolute 0.27 0.00 - 0.50 K/mcL LAB HEMETOLOGY METHOD 02/28/2025 11:29 AM EDT [facility] Basophils Absolute 0.10 0.00 - 0.20 K/mcL LAB HEMETOLOGY METHOD 02/28/2025 11:29 AM EDT [facility] Immature Granulocytes Absolute 0.04(H) 0.00 - 0.03 K/mcL LAB HEMETOLOGY METHOD 02/28/2025 11:29 AM EDT [facility] Blood Venous blood specimen / Unknown Venipuncture / Unknown 02/28/2025 9:25 AM EDT 02/28/2025 11:19 AM EDT Kade Le MD LAB BLOOD ORDERABLES Final Result Performing Organization Address [facility] Co de Phone Number [facility] [address] [place] [address], [place] [phone] * Iron and TIBC (02/28/2025 9:25 AM EDT) Iron 144 50 - 160 mcg/dL LAB CHEMISTRY METHOD 02/28/2025 12:43 PM EDT [facility] TIBC 304 250 - 450 mcg/dL LAB CHEMISTRY METHOD 02/28/2025 12:43 PM EDT [facility] Iron Saturation 47 20 - 50 % LAB CHEMISTRY METHOD 02/28/2025 12:43 PM EDT [facility] Blood Venous blood specimen / Unknown Venipuncture / Unknown 02/28/2025 9:25 AM EDT 02/28/2025 11:20 AM EDT Kade Le MD LAB BLOOD ORDERABLES Final Result Performing Organization Address [facility]/ZIP Co de Phone Number [facility] [address] [place] [address], [place] [phone] * Ferritin (02/28/2025 9:25 AM EDT) Ferritin 142 26 - 388 ng/mL LAB CHEMISTRY METHOD 02/28/2025 12:43 PM [facility] Blood Venous blood specimen / Unknown Venipuncture / Unknown 02/28/2025 9:25 AM EDT 02/28/2025 11:20 AM EDT us Kade Le MD LAB BLOOD ORDERABLES Final Result [facility] [address] [place] [address], [place] [phone] * (ABNORMAL) Comprehensive metabolic panel (02/28/2025 9:25 AM EDT) Sodium 136 133 - 145 mmol/L LAB CHEMISTRY METHOD 02/28/2025 12:43 PM [facility] Potassium 4.3 3.5 - 5.5 mmol/L LAB CHEMISTRY METHOD 02/28/2025 12:43 PM [facility] Chloride 102 96 - 110 mmol/L LAB CHEMISTRY METHOD 02/28/2025 12:43 PM [facility] CO2 30 21 - 32 mmol/L LAB CHEMISTRY METHOD 02/28/2025 12:43 PM [facility] Anion Gap 4 3 - 11 LAB CHEMISTRY METHOD 02/28/2025 12:43 PM [facility] Glucose 143(H) 70 - 100 mg/dL LAB CHEMISTRY METHOD 02/28/2025 12:43 PM [facility] BUN 20 5 - 25 mg/dL LAB CHEMISTRY METHOD 02/28/2025 12:43 PM [facility] Creatinine 1.17 0.70 - 1.30 mg/dL LAB CHEMISTRY METHOD 02/28/2025 12:43 PM [facility] eGFR 78 >=60 mL/min/1. 73m2 LAB CHEMISTRY METHOD 02/28/2025 12:43 PM [facility] Comment:Calculation based on the??Chronic Kidney Disease Epidemiology Collaboration (CKD-EPI) equation refit??without adjustment for race. BUN/Creatinine Ratio 17.1 LAB CHEMISTRY METHOD 02/28/2025 12:43 PM [facility] Calcium 9.7 8.5 - 10.5 mg/dL LAB CHEMISTRY METHOD 02/28/2025 12:43 PM [facility] AST (SGOT) 14 10 - 42 unit/L LAB CHEMISTRY METHOD 02/28/2025 12:43 PM [facility] ALT (SGPT) 26 10 - 60 unit/L LAB CHEMISTRY METHOD 02/28/2025 12:43 PM [facility] Alkaline Phosphatase 72 42 - 121 unit/L LAB CHEMISTRY METHOD 02/28/2025 12:43 PM [facility] Total Protein 7.4 6.0 - 8.0 g/dL LAB CHEMISTRY METHOD 02/28/2025 12:43 PM [facility] Albumin 4.3 3.2 - 5.0 g/dL LAB CHEMISTRY METHOD 02/28/2025 12:43 PM [facility] Total Bilirubin 0.6 0.0 - 1.4 mg/dL LAB CHEMISTRY METHOD 02/28/2025 12:43 PM [facility] Blood Venous blood specimen / Unknown Venipuncture / Unknown 02/28/2025 9:25 AM EDT 02/28/2025 11:20 AM EDT us Kade Le MD LAB BLOOD ORDERABLES Final Result [facility] [address] [place] [address], * XR Fluoro Up To 1 Hour [...] Signed Date: 12/17/2024 13:20 ET Workstation ID: [id number] Transcribed By: Self Edit Transcribed Date: 12/17/2024 [...] Signed Date: 12/17/2024 13:20 ET Workstation ID: [id number] Transcribed By: Self Edit Transcribed Date: 12/17/2024 13:15 ET Jovanny Kennedy MD IMG FLUOROSCOPY PROCEDURES Fin al Result * HM Urine Albumin Creatinine Ratio (07/05/2024) Urine Albumin Creatinine Ratio abstracted Historical Provider HEALTH MAINTENANCE Final Result * Hemoglobin A1c (07/05/2024) Hemoglobin A1C 5.5 <=6.5 % Blood Venous blood specimen / Unknown Historical Provider LAB BLOOD ORDERABLES Nadya l Result * (ABNORMAL) Lipid panel (07/05/2024) [facility] LDL/HDL Ratio 2 0 - 4 Triglycerides 169(A) 0 - 150 mg/dL Cholesterol 112 0 - 200 mg/dL HDL 52 >=40 mg/dL LDL Cholesterol 27 0 - 100 mg/dL Blood Venous blood specimen / Unknown Result [facility] Provider LAB BLOOD ORDERABLES Nadya l Result * Diabetes Eye Exam (07/04/2024) [facility] Diabetes: Annual Retina Eye Exam abstracted Result [facility] Provider HEALTH MAINTENANCE Final Result * Diabetes Foot Exam (04/26/2023) [facility] Diabetes: Annual Foot Exam abstracted Result [facility] Provider HEALTH MAINTENANCE Final Result * Colonoscopy (12/18/2020) [facility] Colonoscopy no inperatati on,abstact ed Anatomical Region Laterality Modality Other Result [facility] Provider HEALTH MAINTENANCE Final Result * HIV Screening (04/15/2015) [facility] HIV Screening abstracted Result [facility] Provider HEALTH MAINTENANCE Final Result from Last 3 Months or Most Recently Relevant to Health Maintenance Insurance [employer] [place] [id number] Care Teams System Support Developer Relationship Specialty Start Date End Date Earnest Dorado PA [address] [facility] [place] [id number] PCP - General Internal Medicine 10/09/24
--- OUTSIDE RECORDS SUMMARY | 2025-03-07 09:00 | XMS_ITS | Clinical Summary ---
Author Organization [facility] Address [address] [place], [place] [id number] Care Team Providers Care Refrigerating Engineer Name Role Phone Earnest Dorado PA-C [...] age to complete this topic Care Teams Refrigerating Engineer Relationship Specialty Start Date End Date Earnest Dorado PA-C PCP - General Medical Services 07/09/24
== END 2025-03-07 08:52 | disposition home or self-care (01) ==
LOC: HO.BBR 08:51
PROVIDERS: PCP Physician Assistant Medical; Visit Provider Internal Medicine Hematology & Oncology
DX: Z13.89 Encounter for screening for other disorder (principal)

== ENCOUNTER 2025-03-20 08:40 | Outpatient (REF) | payer OTHER, SELFPAY ==
--- OUTSIDE RECORDS SUMMARY | 2025-03-20 08:55 | XMS_ITS | Encounter Summary ---
Author Organization [facility] Address [address] [place] [address] Care Team Providers Care Oracle Programmer Analyst Name Role Phone Dustin Price MD Primary Care Provider [phone] Earnets Dorado PA-C Primary Care Provider +[phone] Encounter Details Date Type Department Care Team Description 03/28/2019 Business Doc Medical Records [address] [place], [place] [id number] Abstract, Provider Social History Tobacco Use Types [...] on filedocumented in this encounter Care Teams Oracle Programmer Analyst Relationship Specialty Start Date End Date Dustin Price MD [address] [place] [id number] PCP - General Internal Medicine 09/21/16 02/22/21 Earnest Dorado PA-C [address] [place] [address] PCP - General Internal Medicine 02/23/21 documented as of this encounter
--- OUTSIDE RECORDS SUMMARY | 2025-03-20 08:55 | XMS_ITS | Encounter Summary ---
Author Organization [facility] Address [address] [place] [address] Care Team Providers Care Fender Mechanic Apprentice Name Role Phone Dustin Price MD Primary Care Provider + [phone] Earnest Dorado PA-C Primary Care Provider +[phone] Encounter Details Date Type Department Care Team Description 04/15/2019 Pt. Non Urgent Medic al Question Physiatry - [address] [address] Artur Crocker DO Social History Tobacco Use [...] on filedocumented in this encounter Care Teams Fender Mechanic Apprentice Relationship Specialty Start Date End Date Dustin Price MD [address] [place] [address] PCP - General Internal Medicine 09/21/16 02/22/21 Earnest Dorado PA-C [address] [place] [address] PCP - General Internal Medicine 02/23/21 documented as of this encounter
--- OUTSIDE RECORDS SUMMARY | 2025-03-20 08:55 | XMS_ITS | Encounter Summary ---
Author Organization [facility] Address [address] [place] [address] Care Team Providers Care Development Team Lead Name Role Phone Joseph Domingo MD Primary Care Provider Derik Hoffmann MD Primary Care Provider [facility], Pcp Primary Care Provider Dustin Allen MD Primary Care Provider + [phone] Earnest Dorado PA-C Primary Care Provider Encounter Details Date Type Department Care Team Description 01/25/2011 Hospital Medical Records [address] [place] [address] Justin Patrick MD [address] [place] [address] [id number] Social History Tobacco Use Types Packs/Day Years [...] on filedocumented in this encounter Care Teams Development Team Lead Relationship Specialty Start Date End Date Joseph Domingo MD PCP - General 07/12/10 11/12/14 Derik Kaminski MD PCP - General Internal Medicine 11/17/14 10/25/15 [facility], Pcp PCP - General Internal Medicine 10/26/15 09/20/16 Dustin Price MD [address] [place] [address] PCP - General Internal Medicine 09/21/16 02/22/21 Earnest Dorado PA-C [address] [place] [address] PCP - General Internal Medicine 02/23/21 documented as of this encounter
--- OUTSIDE RECORDS SUMMARY | 2025-03-20 08:55 | XMS_ITS | Clinical Summary ---
Author Organization [facility] Address [address] [place], [place] [id number] Care Team Providers Care Telecommunications Field Technician Name Role Phone Earnest Dorado PA-C [...] age to complete this topic Care Teams Telecommunications Field Technician Relationship Specialty Start Date End Date Earnest Dorado PA-C PCP - General Medical Services 07/09/24
--- OUTSIDE RECORDS SUMMARY | 2025-03-20 08:55 | XMS_ITS | Encounter Summary ---
Author Organization [facility] Address [address] [place] [address] Care Team Providers Care Mining Professionals Name Role Phone Dustin Price MD Primary Care Provider + [phone] Earnest Dorado PA-C Primary Care Provider [phone] Encounter Details Date Type Department Care Team Description 01/01/2021 Pt. Non Urgent Medical Question Adult Medicine [address] [address] Earnest Dorado PA-C [address] [place] [address] [id number] Social History Tobacco Use Types Packs/Day Years [...] on filedocumented in this encounter Care Teams Mining Professionals Relationship Specialty Start Date End Date Dustin Price MD [address] [place] [address] PCP - General Internal Medicine 09/21/16 02/22/21 Earnest Dorado PA-C [address] [place] [address] PCP - General Internal Medicine 02/23/21 documented as of this encounter
--- OUTSIDE RECORDS SUMMARY | 2025-03-20 08:55 | XMS_ITS | Encounter Summary ---
Author Organization [facility] Address [address] [place] [address] Care Team Providers Care Jockey Agent Name Role Phone Dustin Price MD Primary Care Provider + [phone] Earnest Dorado PA-C Primary Care Provider +[phone] Reason for Visit * Reason Onset Date Comments refill request 07/22/2019 Encounter Details Date Type Department Care Team Description 07/22/2019 Refill Gastroenterology - [address] [place] [address] Angel Finley MD refill request Social [...] on filedocumented in this encounter Care Teams Jockey Agent Relationship Specialty Start Date End Date Dustin Price MD [address] [place] [phone] PCP - General Internal Medicine 09/21/16 02/22/21 Earnest Dorado PA-C [address] [place] [address] [phone] PCP - General Internal Medicine 02/23/21 documented as of this encounter
--- OUTSIDE RECORDS SUMMARY | 2025-03-20 08:55 | XMS_ITS | Encounter Summary ---
Author Organization [facility] Address [address] [place] [address] Care Team Providers Care Desktop Support Technician Name Role Phone Dustin Price MD Primary Care Provider + [phone] Earnest Dorado PA-C Primary Care Provider +[phone] Reason for Visit * Reason Onset Date Comments Prior Authorization 04/15/2019 Encounter Details Date Type Department Care Team Description 04/15/2019 Telephone Physiatry - [address] [address] Artur Crocker DO Prior Authorization Social History [...] 04/17/2019 9:17 AM EDT Message left for [facility] prior auth. department to fax approval to [phone] * Telephone Encounter - Addie Barboza M.A. - 04/15/2019 12:51 PM EDT Message left for madhuri from [facility] to call me back * Telephone Encounter - Azul Atkinson - 04/15/2019 11:52 AM EDT Madhuri is calling regarding patients prior Auth he states that it is approved. He would like to knowwhy it has to be done at the [facility] and not in office. Please review and advise. documented in this encounter Plan of Treatment Not on file documented as of this encounter Visit Diagnoses Not on filedocumented in this encounter Care Teams Desktop Support Technician Relationship Specialty Start Date End Date Dustin Price MD [address] [place] [address] PCP - General Internal Medicine 09/21/16 02/22/21 Earnest Dorado PA-C [address] [place] [phone] PCP - General Internal Medicine 02/23/21 documented as of this encounter
--- OUTSIDE RECORDS SUMMARY | 2025-03-20 08:55 | XMS_ITS | Encounter Summary ---
Author Organization [facility] Address [address] [place] [address] Care Team Providers Care Field Appraiser Name Role Phone Dustin Price MD Primary Care Provider + [phone] Earnest Dorado PA-C Primary Care Provider +[phone] Encounter Details Date Type Department Care Team Description 06/18/2019 Pt. Non Urgent Medic al Question Physiatry - [address] [address] Burton Parmar PA-C Social History Tobacco Use [...] on filedocumented in this encounter Care Teams Field Appraiser Relationship Specialty Start Date End Date Dustin Price MD [address] [place] [address] [phone] PCP - General Internal Medicine 09/21/16 02/22/21 Earnest Dorado PA-C [address] [place] [address] [phone] PCP - General Internal Medicine 02/23/21 documented as of this encounter
--- OUTSIDE RECORDS SUMMARY | 2025-03-20 08:55 | XMS_ITS | Encounter Summary ---
Author Organization [facility] Address [address] [place] [address] Care Team Providers Care Art Therapy Certified Supervisor Name Role Phone Dustin Price MD Primary Care Provider [phone] Earnest Dorado PA-C Primary Care Provider [phone] Encounter Details Date Type Department Care Team Description 08/06/2019 Extractor Loader And Unloader Report Medical Records [address] [place] [address] Clifford Tavares MD, PHD Social History Tobacco [...] on filedocumented in this encounter Care Teams Art Therapy Certified Supervisor Relationship Specialty Start Date End Date Dustin Price MD [address] [place] [phone] PCP - General Internal Medicine 09/21/16 02/22/21 Earnest Dorado PA-C [address] [place] [address] PCP - General Internal Medicine 02/23/21 documented as of this encounter
--- OUTSIDE RECORDS SUMMARY | 2025-03-20 08:55 | XMS_ITS | Encounter Summary ---
Author Organization [facility] Address [address] [place] [address] Care Team Providers Care Basting Marker Name Role Phone Dustin Price MD Primary Care Provider + [phone] Earnest Dorado PA-C Primary Care Provider +[phone] Reason for Visit * Reason Onset Date Comments Medication 2020 Encounter Details Date Type Department Care Team Description 2020 Refill Gastroenterology - [address] [place] [phone] Angel Finley MD Medication Social History [...] on filedocumented in this encounter Care Teams Basting Marker Relationship Specialty Start Date End Date Dustin Price MD [address] [place] [address] PCP - General Internal Medicine 09/21/16 02/22/21 Earnest Dorado PA-C [address] [place] [address] [phone] PCP - General Internal Medicine 02/23/21 documented as of this encounter
--- OUTSIDE RECORDS SUMMARY | 2025-03-20 08:55 | XMS_ITS | Encounter Summary ---
Author Organization [facility] Address [address] [place] [address] Care Team Providers Care Auto Vinyl Top Installer Name Role Phone Dustin Price MD Primary Care Provider [phone] Earnest Dorado PA-C Primary Care Provider [phone] Encounter Details Date Type Department Care Team Description 02/14/2019 Pt. Non Urgent Medical Question Physiatry - [address] [address] Micky Lobo PA-C Social History Tobacco Use Types Packs/Day [...] as of this encounter Progress Notes * Cherise Burgess - 02/15/2019 9:42 AM EDTFrom: Toan Pruittberg To: Micky Lobo PA-C Sent: 02/14/2019 7:10 PM EDT Subject: Back Issue Hello Dr. Lobo, I'd like to follow up with you on my back. It's an ongoing pain and I really want to get it taken care of. Is there any word on the cortisone shot? Thank you. documented in this encounter Plan of Treatment Not on file documented as of this encounter Visit Diagnoses Not on filedocumented in this encounter Care Teams Auto Vinyl Top Installer Relationship Specialty Start Date End Date Dustin Price MD [address] [place] [address] PCP - General Internal Medicine 09/21/16 02/22/21 Earnest Dorado PA-C [address] [place] [address] PCP - General Internal Medicine 02/23/21 documented as of this encounter
--- OUTSIDE RECORDS SUMMARY | 2025-03-20 08:55 | XMS_ITS | Encounter Summary ---
Author Organization [facility] Address [address] [place] [address] Care Team Providers Care Pillow Agent Name Role Phone Joseph Domingo MD Primary Care Provider Derik Hoffmann MD Primary Care Provider [facility], Pcp Primary Care Provider Dustin Allen MD Primary Care Provider [phone] Earnest Dorado PA-C Primary Care Provider [phone] Encounter Details Date Type Department Care Team Description 07/14/2014 Alteration Hand Report Medical Records [address] [place] [address] Owen Sharma Social History Tobacco Use Types [...] on filedocumented in this encounter Care Teams Pillow Agent Relationship Specialty Start Date End Date Joseph Domingo MD PCP - General 07/12/10 11/12/14 Derik Kaminski MD PCP - General Internal Medicine 11/17/14 10/25/15 [facility], Pcp PCP - General Internal Medicine 10/26/15 09/20/16 Dustin Price MD [address] [place] [address] PCP - General Internal Medicine 09/21/16 02/22/21 Earnest Dorado PA-C [address] [place] [address] PCP - General Internal Medicine 02/23/21 documented as of this encounter
--- OUTSIDE RECORDS SUMMARY | 2025-03-20 08:55 | XMS_ITS | Encounter Summary ---
Author Organization [facility] Address [address] [place] [address] Care Team Providers Care Ignition Mechanic Name Role Phone Earnest Dorado PA-C Primary Care Provider [phone] Encounter Details Date Type Department Care Team Description 04/01/2023 CGM Report Medical Records [address] [place] [address] Abstract, Provider Social History Tobacco Use Types [...] on filedocumented in this encounter Care Teams Ignition Mechanic Relationship Specialty Start Date End Date Earnest Dorado PA-C [address] [place] [address] PCP - General Internal Medicine 02/23/21 documented as of this encounter
--- OUTSIDE RECORDS SUMMARY | 2025-03-20 08:55 | XMS_ITS | Encounter Summary ---
[facility] Address [address] [place] [address] Care Team Providers Care Industrial Relations Worker Name Role Phone Joseph Browne MD Primary Care Provider Derik Hoffmann MD Primary Care Provider [facility] Pcp Primary Care Provider Dustin Allen MD Primary Care Provider [phone] Earnest Dorado PA-C Primary Care Provider [phone] Reason for Visit * Reason Onset Date Comments Urinary Tract Infection 05/08/2012 Encounter Details Date Type Department Care Team Description 05/08/2012 Telephone Adult [address] [address] Joseph Browne MD Urinary Tract Infection Social History Tobacco Use Types Packs/Day Years [...] Miscellaneous Notes * Telephone Encounter - Makayla Taylor - 05/08/2012 12:08 PM EDT Will see Kaila on monday * Telephone Encounter - Ivanna Reyes R.N. - 05/08/2012 11:59 AM EDT Will triage pt when he calls and book as appropriate * Telephone Encounter - Rabia Corey - 05/08/2012 11:40 AM EDT Patient returned call , he will try to reach you again later. But seemed to still want to be booked. * Telephone Encounter - Ivanna Reyes R.N. - 05/08/2012 11:30 AM EDT I left a message for the patient to return my call. * Telephone Encounter - Makayla Taylor - 05/08/2012 9:39 AM EDT Symptoms patient is presenting: burning on urination, ?UTI, nausea How long has patient had these symptoms?: 2 days PCP: Joseph Browne MD Payor: RUST Plan: HMO $20 [place] [id number] Product Type: HMO [id number]-Mlqxalg Leave message at work for pt to call you back if you need to speak with him documented in this encounter Plan of Treatment Not on file documented as of this encounter Visit Diagnoses Not on filedocumented in this encounter Care Teams Industrial Relations Worker Relationship Specialty Start Date End Date Joseph Browne MD PCP - General 07/12/10 11/12/14 Derik Kaminski MD PCP - General Internal Medicine 11/17/14 10/25/15 [facility], Pcp PCP - General Internal Medicine 10/26/15 09/20/16 Dustin Price MD [address] [place] [address] PCP - General Internal Medicine 09/21/16 02/22/21 Earnest Dorado PA-C [address] [place] [address] PCP - General Internal Medicine 02/23/21 documented as of this encounter
--- OUTSIDE RECORDS SUMMARY | 2025-03-20 08:56 | XMS_ITS | Encounter Summary ---
Author Organization [employer] [facility] Address [address] [place] [address] Care Team Providers Care Veneer Stapler Name Role Phone Earnest Dorado PA-C Primary Care Provider [phone] Encounter Details Date Type Department Care Team Description 06/11/2021 Pt. Non Urgent Medic al Question Physiatry - [address] [phone] Burton Parmar PA-C Social History Tobacco Use [...] Exposure Response Date Recorded In the last month, have you been in contact with someone who was confirmed or suspected to have Coronavirus / COVID-19? Unable to assess 06/03/2021 4:28 PM EDT documented as of this encounter Plan of Treatment Not on file documented as of this encounter Visit Diagnoses Not on filedocumented in this encounter Care Teams Veneer Stapler Relationship Specialty Start Date End Date Earnest Dorado PA-C [address] [place] [address] PCP - General Internal Medicine 02/23/21 documented as of this encounter
--- OUTSIDE RECORDS SUMMARY | 2025-03-20 08:56 | XMS_ITS | Encounter Summary ---
Author Organization [facility] Address [address] [place] [address] Care Team Providers Care Wage And Salary Administrator Name Role Phone Earnest Dorado PA-C Primary Care Provider [phone] Encounter Details Date Type Department Care Team Description 05/18/2023 Orders Only Gastroenterology - [address] [place] [address] Margarita Hummel, DScPAS Acute pancreatitis, unspecified complication status, unspecified pancreatitis type; Polycythemia vera (HCC) Social History Tobacco Use Types Packs/Day Years [...] Procedure Name Priority Date/Time Associated Diagnosis Comments MRI ABD W/WO CONTRAST Routine 05/11/2023 Acute pancreatitis, unspecified complication status, unspecified pancreatitis type Polycythemia vera (HCC) documented in this encounter Results * MRI ABD W/WO CONTRAST (05/11/2023) Margarita Hummel DScPAS MRI documented in this encounter Visit Diagnoses Diagnosis Acute pancreatitis, unspecified complication status, unspecified pancreatitis type Polycythemia vera (HCC) documented in this encounter Care Teams Wage And Salary Administrator Relationship Specialty Start Date End Date Earnest Dorado PA-C [address] [place] [address] PCP - General Internal Medicine 02/23/21 documented as of this encounter
--- OUTSIDE RECORDS SUMMARY | 2025-03-20 08:56 | XMS_ITS | Encounter Summary ---
Author Organization [facility] Address [address] [place] [address] Care Team Providers Care Tip Out Worker Name Role Phone Earnest Dorado PA-C Primary Care Provider [phone] Reason for Visit * Reason Onset Date Comments Prior Authorization 06/23/2023 MRI lumbar Encounter Details Date Type Department Care Team Description 06/23/2023 Telephone Adult Medicine [facility] [address] [place] [address] Earnest Dorado PA-C [address] [place] [address] [phone] Prior Authorization (MRI lumbar) Social History Tobacco [...] however, [facility]. I also contacted [employer] [...] Visit Coverage Subscriber ID Name SSN Address [id number] TOAN SAVAGE [address] [place] [address] Secondary Visit Coverage Payer Plan Sponsor Code Group Number Group Name [employer] PPO $30 [id number] PCP $[id number] Secondary Visit Coverage Subscriber ID Name SSN Address [id number] TOAN SAVAGE [id number] [place] [address] * Telephone Encounter - Earnest Dorado PA-C [...] on filedocumented in this encounter Care Teams Tip Out Worker Relationship Specialty Start Date End Date Earnest Dorado PA-C [address] [place] [address] PCP - General Internal Medicine 02/23/21 documented as of this encounter
--- OUTSIDE RECORDS SUMMARY | 2025-03-20 08:56 | XMS_ITS | Encounter Summary ---
Author Organization [facility] Address [address] [place] [address] Care Team Providers Care Manager Aerospace Name Role Phone Earnest Dorado PA-C Primary Care Provider [phone] Encounter Details Date Type Department Care Team Description 04/27/2021 Refill Adult Medicine [facility] [address] [place] [phone] Earnest Dorado PA-C [address] [place], [place] [phone] Social History Tobacco Use Types Packs/Day Years [...] on filedocumented in this encounter Care Teams Manager Aerospace Relationship Specialty Start Date End Date Earnest Dorado PA-C [address] [place] [address] PCP - General Internal Medicine 02/23/21 documented as of this encounter
--- OUTSIDE RECORDS SUMMARY | 2025-03-20 08:56 | XMS_ITS | Encounter Summary ---
Author Organization [facility] Address [address] [place] [address] Care Team Providers Care Travel Information Center Supervisor Name Role Phone Earnest Dorado PA-C Primary Care Provider [phone] Encounter Details Date Type Department Care Team Description 11/20/2021 Pt. Non Urgent Medical Question Adult Medicine [address] [phone] Earnest Dorado PA-C [address] [place] [address] [phone] Social History Tobacco Use Types Packs/Day Years [...] on filedocumented in this encounter Care Teams Travel Information Center Supervisor Relationship Specialty Start Date End Date Earnest Dorado PA-C [address] [place] [address] PCP - General Internal Medicine 02/23/21 documented as of this encounter
--- OUTSIDE RECORDS SUMMARY | 2025-03-20 08:56 | XMS_ITS | Encounter Summary ---
Author Organization [facility] [place] [address] Care Team Providers Care Model Maker Fiberglass Name Role Phone Earnest Dorado Primary Care Provider [phone] Encounter Details Date Type Department Care Team (Late st Contact Info) Description 08/30/2024 11:13 AM EDT Hospital Encounter TH HISTORIC ENCOUNTERS EASTERN CONVERSION ONLY Kade Le MD [address] [place] [phone] Social History Tobacco Use Types Packs/Day [...] daughter. 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 He has 1 [...] 9:40 AM EDT Office Visit Endocrinology - [address] [phone] Jazmin Valera PA [address] [place] [address] 05/29/2025 9:15 AM EDT Office Visit [facility] Hematology Oncology [address] [place] [phone] Kade Le MD [address] [place] [phone] documented as of this encounter Visit Diagnoses Not on filedocumented in this encounter Care Teams Model Maker Fiberglass Relationship Specialty Start Date End Date Earnest Dorado PA PCP - General Internal Medicine 02/23/21 10/08/24 documented as of this encounter
--- OUTSIDE RECORDS SUMMARY | 2025-03-20 08:56 | XMS_ITS | Encounter Summary ---
Author Organization [facility] Address [address] [place] [address] Care Team Providers Care Wildlife Photographer Name Role Phone Earnest Dorado PA-C Primary Care Provider [phone] Reason for Referral * EXTERNAL (Routine) - Authorized/Booked Specialty Diagnoses / Procedures Referred By Contac t Referred To Contact PAIN MANAGEMENT / Pain Management Procedures REFERRAL TO PAIN MANAGEMENT Burton Parmar PA-C [facility] External Pain Man Referral ID Status Reason Start Date Expiration Date V isits Requested Visits Authorized [id number] Authorized/B ooked 04/30/2021 08/07/2021 1 1 Encounter Details Date Type Department Care Team Description 04/30/2021 Orders Only Physiatry - [address] [phone] Burton Parmar PA-C Lumbar radiculitis (Primary Dx); Lumbar herniated disc Social History Tobacco Use Types Packs/Day Years [...] as of this encounter Visit Diagnoses Diagnosis Lumbar radiculitis- Primary Thoracic or lumbosacral neuritis or radiculitis, unspecified Lumbar herniated disc Displacement of lumbar intervertebral disc without myelopathy documented in this encounter Care Teams Wildlife Photographer Relationship Specialty Start Date End Date Earnest Dorado PA-C [address] [place] [address] PCP - General Internal Medicine 02/23/21 documented as of this encounter
--- OUTSIDE RECORDS SUMMARY | 2025-03-20 08:56 | XMS_ITS | Clinical Summary ---
Author Organization [facility] [address] [place] [address] [place] [address] [place] [address] Phone Care Team Providers Care Cleat Layer Name Role Phone Earnest Dorado Primary Care Provider +1 [phone] Allergies Active Allergy Reactions Criticality Noted Date [...] Problem Noted Date Diagnosed Date Hereditary hemochromatosis ([facility] V24) 024 Lumbar radiculopathy 06/23/2023 Acute pancreatitis 05/04/2023 Overview (09/27/2024): [facility] ER History of 2019 novel coronavirus disease (COVID -19) 07/19/2022 Diabetes mellitus type 2 wit h neurological manifestations ([facility] V24, [facility] V28) 09/18/2020 Diabetic neuropathy ([facility] V24, [facility] V28) 1 11/18/2019 Deviated septum 11/21/2016 Umbilical hernia 11/21/2016 IBS (irritable bowel syndrome) 02/19/2013 Overview (09/27/2024): Diarrhea predominant, onset 2010. Post-op pain 02/10/2011 Dysuria 01/31/2011 Hyperlipidemia 08/06/2010 Acne 07/13/2010 Encounters Date Type Department Care Team Description 02/28/2025 9:00 AM EDT Office Visit [facility] Hematology Oncology [address] [place] [address] Kade Le MD Hereditary hemochromatosis ([facility] V24) (Primary Dx) from Last 3 Months Immunizations Name Administration [...] 9:40 AM EDT Office Visit Endocrinology - [facility] [address] [place] [address] Jazmin Valera PA [address] [place], [place] 05/29/2025 9:15 AM EDT Office Visit [facility] Hematology Oncology [address] [place] [phone] Kade Le MD [address] [place] [phone] Health Maintenance Due Date Last Done [...] Routine 02/28/2025 9:25 AM EDT Hereditary hemochromatosis ([facility] V24) IRON AND TIBC Routine 02/28/2025 9:25 AM EDT Hereditary hemochromatosis ([facility] V24) FERRITIN Routine 02/28/2025 9:25 AM EDT Hereditary hemochromatosis ([facility] V24) CBC AND DIFFERENTIAL Routine 02/28/2025 9:25 AM EDT Hereditary hemochromatosis ([facility] V24) COMPREHENSIVE METABOLIC PANEL Routine 02/28/2025 9:25 AM EDT Hereditary hemochromatosis ([facility] V24) HM URINE ALBUMIN CREATININE RATIO Routine 07/05/2024 HEMOGLOBIN A1C Routine 07/05/2024 LIPID PANEL Routine 07/05/2024 DIABETES EYE EXAM Routine 07/04/2024 DIABETES FOOT EXAM Routine 04/26/2023 COLONOSCOPY Routine 12/18/2020 HIV SCREENING Routine 04/15/2015 from Last 3 Months or Most Recently Relevant to Health Maintenance Results * (ABNORMAL) CBC auto differential (02/28/2025 9:25 AM EDT) WBC 7.9 4.8 - 10.8 /[facility] LAB HEMETOLOGY METHOD 02/28/2025 11:29 AM EDT [facility] RBC 4.60 4.50 - 5.50 M/mcL LAB HEMETOLOGY METHOD 02/28/2025 11:29 AM [facility] Hemoglobin 15.1 13.5 - 17.5 g/dL LAB HEMETOLOGY METHOD 02/28/2025 11:29 AM [facility] Hematocrit 42.7 42.0 - 54.0 % LAB HEMETOLOGY METHOD 02/28/2025 11:29 AM [facility] MCV 92.6 79.0 - 98.0 FL LAB HEMETOLOGY METHOD 02/28/2025 11:29 AM [facility] MCH 32.8(H) 27.0 - 32.0 pcg LAB HEMETOLOGY METHOD 02/28/2025 11:29 AM [facility] MCHC 35.4 32.0 - 37.0 g/dL LAB HEMETOLOGY METHOD 02/28/2025 11:29 AM [facility] RDW 12.0 11.0 - 15.0 % LAB HEMETOLOGY METHOD 02/28/2025 11:29 AM [facility] Platelets 302 130 - 400 K/mcL LAB HEMETOLOGY METHOD 02/28/2025 11:29 AM [facility] MPV 9.6 7.0 - 11.0 FL LAB HEMETOLOGY METHOD 02/28/2025 11:29 AM [facility] NRBC 0.0 <1.0 % LAB HEMETOLOGY METHOD 02/28/2025 11:29 AM [facility] NRBC Absolute 0.00 <0.10 K/mcL LAB HEMETOLOGY METHOD 02/28/2025 11:29 AM [facility] Neutrophils Relative 60.2 % LAB HEMETOLOGY METHOD 02/28/2025 11:29 AM [facility] Lymphocytes Relative 26.6 % LAB HEMETOLOGY METHOD 02/28/2025 11:29 AM [facility] Monocytes Relative 8.0 % LAB HEMETOLOGY METHOD 02/28/2025 11:29 AM [facility] Eosinophils Relative 3.4 % LAB HEMETOLOGY METHOD 02/28/2025 11:29 AM [facility] Basophils Relative 1.3 % LAB HEMETOLOGY METHOD 02/28/2025 11:29 AM [facility] Immature Granulocytes Relative 0.5 % LAB HEMETOLOGY METHOD 02/28/2025 11:29 AM [facility] Neutrophils Absolute 4.73 1.50 - 7.00 K/mcL LAB HEMETOLOGY METHOD 02/28/2025 11:29 AM [facility] Lymphocytes Absolute 2.09 1.00 - 5.00 K/mcL LAB HEMETOLOGY METHOD 02/28/2025 11:29 AM [facility] Monocytes Absolute 0.63 0.20 - 1.00 K/mcL LAB HEMETOLOGY METHOD 02/28/2025 11:29 AM [facility] Eosinophils Absolute 0.27 0.00 - 0.50 K/mcL LAB HEMETOLOGY METHOD 02/28/2025 11:29 AM [facility] Basophils Absolute 0.10 0.00 - 0.20 K/mcL LAB HEMETOLOGY METHOD 02/28/2025 11:29 AM [facility] Immature Granulocytes Absolute 0.04(H) 0.00 - 0.03 K/mcL LAB HEMETOLOGY METHOD 02/28/2025 11:29 AM [facility] Blood Venous blood specimen / Unknown Venipuncture / Unknown 02/28/2025 9:25 AM EDT 02/28/2025 11:19 AM EDT Kade Le MD LAB BLOOD ORDERABLES Final Result Performing Organization Address City/[facility]/ZIP Co de Phone Number [facility] [address] [place] [address], [place] [phone] * Iron and TIBC (02/28/2025 9:25 AM EDT) Iron 144 50 - 160 mcg/dL LAB CHEMISTRY METHOD 02/28/2025 12:43 PM EDT [facility] TIBC 304 250 - 450 mcg/dL LAB CHEMISTRY METHOD 02/28/2025 12:43 PM EDT [facility] Iron Saturation 47 20 - 50 % LAB CHEMISTRY METHOD 02/28/2025 12:43 PM EDT [facility] Blood Venous blood specimen / Unknown Venipuncture / Unknown 02/28/2025 9:25 AM EDT 02/28/2025 11:20 AM EDT us Kade Le MD LAB BLOOD ORDERABLES Final Result Performing Organization Address [facility]/ZIP Co de Phone Number [facility] [address] [place] [address], [place] [phone] * Ferritin (02/28/2025 9:25 AM EDT) Ferritin 142 26 - 388 ng/mL LAB CHEMISTRY METHOD 02/28/2025 12:43 PM EDT [facility] Blood Venous blood specimen / Unknown Venipuncture / Unknown 02/28/2025 9:25 AM EDT 02/28/2025 11:20 AM EDT us Kade Le MD LAB BLOOD ORDERABLES Final Result [facility] [address] [place] [address], [place] [phone] * (ABNORMAL) Comprehensive metabolic panel (02/28/2025 9:25 AM EDT) Sodium 136 133 - 145 mmol/L LAB CHEMISTRY METHOD 02/28/2025 12:43 PM [facility] Potassium 4.3 3.5 - 5.5 mmol/L LAB CHEMISTRY METHOD 02/28/2025 12:43 PM [facility] Chloride 102 96 - 110 mmol/L LAB CHEMISTRY METHOD 02/28/2025 12:43 PM [facility] CO2 30 21 - 32 mmol/L LAB CHEMISTRY METHOD 02/28/2025 12:43 PM [facility] Anion Gap 4 3 - 11 LAB CHEMISTRY METHOD 02/28/2025 12:43 PM [facility] Glucose 143(H) 70 - 100 mg/dL LAB CHEMISTRY METHOD 02/28/2025 12:43 PM [facility] BUN 20 5 - 25 mg/dL LAB CHEMISTRY METHOD 02/28/2025 12:43 PM [facility] Creatinine 1.17 0.70 - 1.30 mg/dL LAB CHEMISTRY METHOD 02/28/2025 12:43 PM [facility] eGFR 78 >=60 mL/min/1. 73m2 LAB CHEMISTRY METHOD 02/28/2025 12:43 PM [facility] Comment:Calculation based on the??Chronic Kidney Disease Epidemiology Collaboration (CKD-EPI) equation refit??without adjustment for race. BUN/Creatinine Ratio 17.1 LAB CHEMISTRY METHOD 02/28/2025 12:43 PM [facility] Calcium 9.7 8.5 - 10.5 mg/dL LAB CHEMISTRY METHOD 02/28/2025 12:43 PM [facility] AST (SGOT) 14 10 - 42 unit/L LAB CHEMISTRY METHOD 02/28/2025 12:43 PM [facility] ALT (SGPT) 26 10 - 60 unit/L LAB CHEMISTRY METHOD 02/28/2025 12:43 PM EDT [facility] Alkaline Phosphatase 72 42 - 121 unit/L LAB CHEMISTRY METHOD 02/28/2025 12:43 PM EDT [facility] Total Protein 7.4 6.0 - 8.0 g/dL LAB CHEMISTRY METHOD 02/28/2025 12:43 PM EDT [facility] Albumin 4.3 3.2 - 5.0 g/dL LAB CHEMISTRY METHOD 02/28/2025 12:43 PM EDT [facility] Total Bilirubin 0.6 0.0 - 1.4 mg/dL LAB CHEMISTRY METHOD 02/28/2025 12:43 PM EDT [facility] Blood Venous blood specimen / Unknown Venipuncture / Unknown 02/28/2025 9:25 AM EDT 02/28/2025 11:20 AM EDT Kade Le MD LAB BLOOD ORDERABLES Final Result [facility] [address] [place] [address], [place] [phone] * HM Urine Albumin Creatinine Ratio (07/05/2024) [facility] HM Urine Albumin Creatinine Ratio abstracted Historical [facility] Final Result * Hemoglobin A1c (07/05/2024) [facility] Hemoglobin A1C 5.5 <=6.5 % Blood Venous blood specimen / Unknown Historical Provider LAB BLOOD ORDERABLES Nadya l Result * (ABNORMAL) Lipid panel (07/05/2024) [facility] LDL/HDL Ratio 2 0 - 4 Triglycerides 169(A) 0 - 150 mg/dL Cholesterol 112 0 - 200 mg/dL HDL 52 >=40 mg/dL LDL Cholesterol 27 0 - 100 mg/dL Blood Venous blood specimen / Unknown Result [facility] Historical Provider LAB BLOOD ORDERABLES Nadya l Result * Diabetes Eye Exam (07/04/2024) Pathologist [facility] Diabetes: Annual Retina Eye Exam abstracted Result [facility] Historical Provider HEALTH MAINTENANCE Final Result * Diabetes Foot Exam (04/26/2023) Pathologist [facility] Diabetes: Annual Foot Exam abstracted Result [facility] Provider HEALTH MAINTENANCE Final Result * Colonoscopy (12/18/2020) Pathologist [facility] Colonoscopy no inperatati on,abstact ed Anatomical Region Laterality Modality Other Result [facility] Provider HEALTH MAINTENANCE Final Result * HIV Screening (04/15/2015) [facility] HIV Screening abstracted Result [facility] Provider HEALTH MAINTENANCE Final Result from Last 3 Months or Most Recently Relevant to Health [place] [address] [place] [address] Care Teams Cleat Layer Relationship Specialty Start Date End Date Earnest Dorado PA [address] [place] [address] [place] [address] PCP - General Internal Medicine 10/09/24
--- OUTSIDE RECORDS SUMMARY | 2025-03-20 08:56 | XMS_ITS | Encounter Summary ---
Author Organization [facility] Address [address] [place] [address] Care Team Providers Care Manager Educational Name Role Phone Earnest Dorado PA-C Primary Care Provider [phone] [phone] Encounter Details Date Type Department Care Team Description 10/22/2022 CGM Report Medical Records [address] [place] [id number] Abstract, Provider Social History Tobacco Use Types [...] filedocumented in this encounter Care Teams Manager Educational Relationship Specialty Start Date End Date Earnest Dorado PA-C [address] [place] [address] PCP - General Internal Medicine 02/23/21 documented as of this encounter
--- OUTSIDE RECORDS SUMMARY | 2025-03-20 08:56 | XMS_ITS | Clinical Summary ---
Author Organization [facility] Address [address] [place] [address] Care Team Providers Care Drum Carrier Name Role Phone Earnest Dorado PA-C Primary Care Provider [phone] [phone] Allergies Active Allergy Reactions Severity Noted Date [...] Lumbar radiculopathy 06/23/2023 Acute pancreatitis 05/04/2023 Overview: [facility] ER History of 2019 novel [...] RISK PATIENTS (#2) 2043 03/27/2019 Care Teams Drum Carrier Relationship Specialty Start Date End Date Earnest Dorado PA-C [address] [place] [address] PCP - General Internal Medicine 02/23/21
--- OUTSIDE RECORDS SUMMARY | 2025-03-20 08:56 | XMS_ITS | Encounter Summary ---
Author Organization [facility] Address [address] [place] [address] Care Team Providers Care Vacuum Drum Drier Operator Name Role Phone Earnest Dorado PA-C Primary Care Provider [phone] [phone] Reason for Visit * Reason Onset Date Comments Faxed Refill 12/29/2022 Encounter Details Date Type Department Care Team Description 12/29/2022 Refill Endocrinology - [address] [address] Jazmin Valera PA-C [address] [place] [phone] Faxed Refill Social History Tobacco Use Types [...] Payor: [employer] / Plan: PPO $30 [id number] / Product Type: PPO [id number] documented in this encounter Plan of Treatment Not on file documented as of this encounter Visit Diagnoses Diagnosis Diabetes mellitus type 2 with neurological manifestations (HCC) Type II or unspecified type diabetes mellitus with neurological manifestations, not stated as uncontrolled documented in this encounter Care Teams Vacuum Drum Drier Operator Relationship Specialty Start Date End Date Earnest Dorado PA-C [address] [place] [address] PCP - General Internal Medicine 02/23/21 documented as of this encounter
--- OUTSIDE RECORDS SUMMARY | 2025-03-20 08:56 | XMS_ITS | Encounter Summary ---
Author Organization [facility] Address [address] [place] [address] Care Team Providers Care Drawer In Hand Name Role Phone Earnest Dorado PA-C Primary Care Provider [phone] [phone] Reason for Visit * Reason Onset Date Comments Faxed Refill 05/06/2024 Encounter Details Date Type Department Care Team Description 05/06/2024 Refill Gastroenterology - [address] [place] [phone] Shaheed, Margarita, DScPAS Faxed Refill Social [...] on filedocumented in this encounter Care Teams Drawer In Hand Relationship Specialty Start Date End Date Earnest Dorado PA-C [address] [place] [address] PCP - General Internal Medicine 02/23/21 documented as of this encounter
== END 2025-03-20 08:41 | disposition home or self-care (01) ==
LOC: HO.BBR 08:40
PROVIDERS: PCP Physician Assistant Medical; Visit Provider Internal Medicine Hematology & Oncology
DX: Z13.89 Encounter for screening for other disorder (principal)

== ENCOUNTER 2025-04-04 08:42 | Outpatient (REF) | payer OTHER, SELFPAY ==
--- OUTSIDE RECORDS SUMMARY | 2025-04-04 08:57 | XMS_ITS | Clinical Summary ---
Author Organization [facility] [address] [place] [address] [place] [address] [place] [address] Phone Care Team Providers Care Title Curative Specialist Name Role Phone Earnest Dorado Primary Care Provider +1 [phone] Allergies Active Allergy Reactions Criticality Noted Date [...] Problem Noted Date Diagnosed Date Hereditary hemochromatosis ([facility] V24) 024 Lumbar radiculopathy 06/23/2023 Acute pancreatitis 05/04/2023 Overview (09/27/2024): [facility] History of 2019 novel coronavirus disease (COVID -19) 07/19/2022 Diabetes mellitus type 2 wit h neurological manifestations ([facility] V24, [facility] V28) 09/18/2020 Diabetic neuropathy ([facility] V24, [facility] V28) 1 11/18/2019 Deviated septum 11/21/2016 Umbilical hernia 11/21/2016 IBS (irritable bowel syndrome) 02/19/2013 Overview (09/27/2024): Diarrhea predominant, onset 2010. Post-op pain 02/10/2011 Dysuria 01/31/2011 Hyperlipidemia 08/06/2010 Acne 07/13/2010 Encounters Date Type Department Care Team Description 02/28/2025 9:00 AM EDT Office Visit [facility] Hematology Oncology [address] [place] [address] Kade Le MD Hereditary hemochromatosis ([facility] V24) (Primary Dx) from Last [...] Care Team (Late st Contact Info) Description 05/29/2025 9:15 AM EDT Office Visit [facility] Hematology Oncology [address] [place] [address] Kade Le MD [address] [place] [address] Health Maintenance Due Date Last [...] 9:25 AM EDT Hereditary hemochromatosis (CMS/HCC V24) IRON AND TIBC Routine 02/28/2025 9:25 AM EDT Hereditary hemochromatosis (CMS/HCC V24) FERRITIN Routine 02/28/2025 9:25 AM EDT Hereditary hemochromatosis (CMS/HCC V24) CBC AND DIFFERENTIAL Routine 02/28/2025 9:25 AM EDT Hereditary hemochromatosis (CMS/HCC V24) COMPREHENSIVE METABOLIC PANEL Routine 02/28/2025 9:25 AM EDT Hereditary hemochromatosis (CMS/HCC V24) HM URINE ALBUMIN CREATININE RATIO Routine 07/05/2024 HEMOGLOBIN A1C Routine 07/05/2024 LIPID PANEL Routine 07/05/2024 DIABETES EYE EXAM Routine 07/04/2024 DIABETES FOOT EXAM Routine 04/26/2023 COLONOSCOPY Routine 12/18/2020 HIV SCREENING Routine 04/15/2015 from Last 3 Months or Most Recently Relevant to Health Maintenance Results * (ABNORMAL) CBC auto differential (02/28/2025 9:25 AM EDT) [facility] WBC 7.9 4.8 - 10.8 K/[facility] LAB HEMETOLOGY METHOD 02/28/2025 11:29 AM EDT [facility] RBC 4.60 4.50 - 5.50 M/mcL LAB HEMETOLOGY METHOD 02/28/2025 11:29 AM EDT [facility] Hemoglobin 15.1 13.5 - 17.5 g/dL LAB HEMETOLOGY METHOD 02/28/2025 11:29 AM [facility] Hematocrit 42.7 42.0 - 54.0 % LAB HEMETOLOGY METHOD 02/28/2025 11:29 AM [facility] MCV 92.6 79.0 - 98.0 FL LAB HEMETOLOGY METHOD 02/28/2025 11:29 AM [facility] MCH 32.8(H) 27.0 - 32.0 pcg LAB HEMETOLOGY METHOD 02/28/2025 11:29 AM [facility] MCHC 35.4 32.0 - 37.0 g/dL LAB HEMETOLOGY METHOD 02/28/2025 11:29 AM [facility] RDW 12.0 11.0 - 15.0 % LAB HEMETOLOGY METHOD 02/28/2025 11:29 AM [facility] Platelets 302 130 - 400 K/mcL LAB HEMETOLOGY METHOD 02/28/2025 11:29 AM [facility] MPV 9.6 7.0 - 11.0 FL LAB HEMETOLOGY METHOD 02/28/2025 11:29 AM [facility] NRBC 0.0 <1.0 % LAB HEMETOLOGY METHOD 02/28/2025 11:29 AM [facility] NRBC Absolute 0.00 <0.10 K/mcL LAB HEMETOLOGY METHOD 02/28/2025 11:29 AM [facility] Neutrophils Relative 60.2 % LAB HEMETOLOGY METHOD 02/28/2025 11:29 AM [facility] Lymphocytes Relative 26.6 % LAB HEMETOLOGY METHOD 02/28/2025 11:29 AM [facility] Monocytes Relative 8.0 % LAB HEMETOLOGY METHOD 02/28/2025 11:29 AM [facility] Eosinophils Relative 3.4 % LAB HEMETOLOGY METHOD 02/28/2025 11:29 AM EDT [facility] Basophils Relative 1.3 % LAB HEMETOLOGY METHOD 02/28/2025 11:29 AM EDT [facility] Immature Granulocytes Relative 0.5 % LAB HEMETOLOGY METHOD 02/28/2025 11:29 AM EDT [facility] Neutrophils Absolute 4.73 1.50 - 7.00 K/mcL LAB HEMETOLOGY METHOD 02/28/2025 11:29 AM EDT [facility] Lymphocytes Absolute 2.09 1.00 - 5.00 K/mcL LAB HEMETOLOGY METHOD 02/28/2025 11:29 AM EDT [facility] Monocytes Absolute 0.63 0.20 - 1.00 K/mcL LAB [facility]EMETOLOGY [facility] Eosin[facility] Absolute 0.27 0.00 - 0.50 K/mcL LAB HEMETOLOGY METHOD 02/28/2025 11:29 AM EDT [facility] Basophils Absolute 0.10 0.00 - 0.20 K/mcL LAB HEMETOLOGY METHOD 02/28/2025 11:29 AM EDT [facility] Immature Granulocytes Absolute 0.04(H) 0.00 - 0.03 K/mcL LAB HEMETOLOGY METHOD 02/28/2025 11:29 AM EDT [facility] Blood Venous blood specimen / Unknown Venipuncture / Unknown 02/28/2025 9:25 AM EDT 02/28/2025 11:19 AM EDT Kade Le MD LAB BLOOD ORDERABLES Final Result [facility] [address] [place] [address], * Iron and TIBC (02/28/2025 9:25 AM EDT) Iron 144 50 - 160 mcg/dL LAB CHEMISTRY METHOD 02/28/2025 12:43 PM EDT [facility] TIBC 304 250 - 450 mcg/dL LAB CHEMISTRY METHOD 02/28/2025 12:43 PM EDT [facility] Iron Saturation 47 20 - 50 % LAB CHEMISTRY METHOD 02/28/2025 12:43 PM EDT [facility] Blood Venous blood specimen / Unknown Venipuncture / Unknown 02/28/2025 9:25 AM EDT 02/28/2025 11:20 AM EDT us Kade Le MD LAB BLOOD ORDERABLES Final Result Performing Organization Address [facility]/ZIP Co de Phone Number [facility] [address] [place] [address], [place] [phone] * Ferritin (02/28/2025 9:25 AM EDT) Pathologist [facility] Ferritin 142 26 - 388 ng/mL LAB CHEMISTRY METHOD 02/28/2025 12:43 PM EDT [facility] Blood Venous blood specimen / Unknown Venipuncture / Unknown 02/28/2025 9:25 AM EDT 02/28/2025 11:20 AM EDT us Kade Le MD LAB BLOOD ORDERABLES Final Result Performing Organization Address City/[facility]/ZIP Co de Phone Number [facility] [address] [place] [address], [place] [phone] * (ABNORMAL) Comprehensive metabolic panel (02/28/2025 9:25 AM EDT) Pathologist [facility] Sodium 136 133 - 145 mmol/L LAB CHEMISTRY METHOD 02/28/2025 12:43 PM EDT [facility] Potassium 4.3 3.5 - 5.5 mmol/L LAB CHEMISTRY METHOD 02/28/2025 12:43 PM EDT [facility] Chloride 102 96 - 110 mmol/L LAB CHEMISTRY METHOD 02/28/2025 12:43 PM [facility] CO2 30 21 - 32 mmol/L LAB CHEMISTRY METHOD 02/28/2025 12:43 PM [facility] Anion Gap 4 3 - 11 LAB CHEMISTRY METHOD 02/28/2025 12:43 PM [facility] Glucose 143(H) 70 - 100 mg/dL LAB CHEMISTRY METHOD 02/28/2025 12:43 PM [facility] BUN 20 5 - 25 mg/dL LAB CHEMISTRY METHOD 02/28/2025 12:43 PM [facility] Creatinine 1.17 0.70 - 1.30 mg/dL LAB CHEMISTRY METHOD 02/28/2025 12:43 PM [facility] eGFR 78 >=60 mL/min/1. 73m2 LAB CHEMISTRY METHOD 02/28/2025 12:43 PM [facility] Comment:Calculation based on the??Chronic Kidney Disease Epidemiology Collaboration (CKD-EPI) equation refit??without adjustment for race. BUN/Creatinine Ratio 17.1 LAB CHEMISTRY METHOD 02/28/2025 12:43 PM [facility] Calcium 9.7 8.5 - 10.5 mg/dL LAB CHEMISTRY METHOD 02/28/2025 12:43 PM [facility] AST (SGOT) 14 10 - 42 unit/L LAB CHEMISTRY METHOD 02/28/2025 12:43 PM [facility] ALT (SGPT) 26 10 - 60 unit/L LAB CHEMISTRY METHOD 02/28/2025 12:43 PM [facility] Alkaline Phosphatase 72 42 - 121 unit/L LAB CHEMISTRY METHOD 02/28/2025 12:43 PM [facility] Total Protein 7.4 6.0 - 8.0 g/dL LAB CHEMISTRY METHOD 02/28/2025 12:43 PM EDT [facility] Albumin 4.3 3.2 - 5.0 g/dL LAB CHEMISTRY METHOD 02/28/2025 12:43 PM EDT [facility] Total Bilirubin 0.6 0.0 - 1.4 mg/dL LAB CHEMISTRY METHOD 02/28/2025 12:43 PM EDT [facility] Blood Venous blood specimen / Unknown Venipuncture / Unknown 02/28/2025 9:25 AM EDT 02/28/2025 11:20 AM EDT Result [facility] Kade Le MD LAB BLOOD ORDERABLES Final Result [facility] [address] [place] [address], [place] [phone] * Urine Albumin Creatinine Ratio (07/05/2024) Pathologist [facility] Urine Albumin Creatinine Ratio abstracted Result [facility] Provider HEALTH MAINTENANCE Final Result * Hemoglobin A1c (07/05/2024) [facility] Hemoglobin A1C 5.5 <=6.5 % Blood Venous blood specimen / Unknown Result [facility] Provider LAB BLOOD ORDERABLES Nadya l Result * (ABNORMAL) Lipid panel (07/05/2024) [facility] LDL/HDL Ratio 2 0 - 4 Triglycerides 169(A) 0 - 150 mg/dL Cholesterol 112 0 - 200 mg/dL HDL 52 >=40 mg/dL LDL Cholesterol 27 0 - 100 mg/dL Blood Venous blood specimen / Unknown Result [facility] Historical Provider LAB BLOOD ORDERABLES Nadya l Result * Diabetes Eye Exam (07/04/2024) Pathologist [facility] Diabetes: Annual Retina Eye Exam abstracted Result [facility] Historical Provider HEALTH MAINTENANCE Final Result * Diabetes Foot Exam (04/26/2023) Diabetes: Annual Foot Exam abstracted Historical Provider HEALTH MAINTENANCE Final Result * Colonoscopy (12/18/2020) Pathologist [facility] Colonoscopy no inperatati on,abstact ed Anatomical Region Laterality Modality Other Historical Provider HEALTH MAINTENANCE Final Result * HIV Screening (04/15/2015) Pathologist [facility] HIV Screening abstracted Historical Provider HEALTH MAINTENANCE Final Result from Last 3 Months or Most Recently Relevant to Health Maintenance Insurance [employer] Care Teams Title Curative Specialist Relationship Specialty Start Date End Date Earnest Dorado PA [address] [facility] [place] [address] PCP - General Internal Medicine 10/09/24
== END 2025-04-04 08:43 | disposition home or self-care (01) ==
LOC: HO.BBR 08:42
PROVIDERS: Visit Provider Internal Medicine Hematology & Oncology
DX: Z13.89 Encounter for screening for other disorder (principal)

== ENCOUNTER 2025-04-18 11:52 | Outpatient (REF) | payer OTHER, SELFPAY ==
--- OUTSIDE RECORDS SUMMARY | 2025-04-18 12:26 | XMS_ITS | Clinical Summary ---
Author Organization [facility] [address] [place] [address] [place] [address] [place] [address] Phone Care Team Providers Care Steel Burner Name Role Phone Earnest Dorado Primary Care Provider +1 -[phone] Allergies Active Allergy Reactions Criticality Noted Date [...] Problem Noted Date Diagnosed Date Hereditary hemochromatosis ([facility] V24) 024 Lumbar radiculopathy 06/23/2023 Acute pancreatitis 05/04/2023 Overview (09/27/2024): [facility] ER History of 2019 novel coronavirus disease (COVID -19) 07/19/2022 Diabetes mellitus type 2 wit h neurological manifestations ([facility] V24, [facility] V28) 09/18/2020 Diabetic neuropathy ([facility] V24, [facility] V28) 1 11/18/2019 Deviated septum 11/21/2016 Umbilical hernia 11/21/2016 IBS (irritable bowel syndrome) 02/19/2013 Overview (09/27/2024): Diarrhea predominant, onset 2010. Post-op pain 02/10/2011 Dysuria 01/31/2011 Hyperlipidemia 08/06/2010 Acne 07/13/2010 Encounters Date Type Department Care Team Description 02/28/2025 9:00 AM EDT Office Visit [facility] Hematology Oncology [address] [place] [address] Kade Le MD Hereditary hemochromatosis ([facility] V24) (Primary Dx) from Last [...] Description 05/29/2025 9:15 AM EDT Office Visit [facility] Hematology Oncology [address] [place] [address] Kade Le MD [address] [place] [address] Health Maintenance Due Date Last [...] CBC auto differential (02/28/2025 9:25 AM EDT) [facility] WBC 7.9 4.8 - 10.8 K/[facility] LAB HEMETOLOGY METHOD 02/28/2025 11:29 AM EDT [facility] RBC 4.60 4.50 - 5.50 M/mcL LAB HEMETOLOGY METHOD 02/28/2025 11:29 AM EDT [facility] Hemoglobin 15.1 13.5 - 17.5 g/dL LAB HEMETOLOGY METHOD 02/28/2025 11:[address] [facility] Hematocrit 42.7 42.0 - 54.0 % LAB HEMETOLOGY METHOD 02/28/2025 11:[address] [facility] MCV 92.6 79.0 - 98.0 FL LAB HEMETOLOGY METHOD 02/28/2025 11:[address] [facility] MCH 32.8(H) 27.0 - 32.0 pcg LAB HEMETOLOGY METHOD 02/28/2025 11:[address] [facility] MCHC 35.4 32.0 - 37.0 g/dL LAB HEMETOLOGY METHOD 02/28/2025 11:[address] [facility] RDW 12.0 11.0 - 15.0 % LAB HEMETOLOGY METHOD 02/28/2025 11:[address] [facility] Platelets 302 130 - 400 K/mcL LAB HEMETOLOGY METHOD 02/28/2025 11:[address] [facility] MPV 9.6 7.0 - 11.0 FL LAB HEMETOLOGY METHOD 02/28/2025 11:[address] [facility] NRBC 0.0 <1.0 % LAB HEMETOLOGY METHOD 02/28/2025 11:[address] [facility] NRBC Absolute 0.00 <0.10 K/mcL LAB HEMETOLOGY METHOD 02/28/2025 11:[address] [facility] Neutrophils Relative 60.2 % LAB HEMETOLOGY METHOD 02/28/2025 11:[address] [facility] Lymphocytes Relative 26.6 % LAB HEMETOLOGY METHOD 02/28/2025 11:[address] [facility] Monocytes Relative 8.0 % LAB HEMETOLOGY METHOD 02/28/2025 11:[address] [facility] Eosinophils Relative 3.4 % LAB HEMETOLOGY METHOD 02/28/2025 11:29 AM EDT [facility] Basophils Relative 1.3 % LAB HEMETOLOGY METHOD 02/28/2025 11:29 AM EDT [facility] Immature Granulocytes Relative 0.5 % LAB HEMETOLOGY METHOD 02/28/2025 11:29 AM EDT [facility] Neutrophils Absolute 4.73 1.50 - 7.00 K/mcL LAB HEMETOLOGY METHOD 02/28/2025 11:29 AM EDT [facility] Lymphocytes Absolute 2.09 1.00 - 5.00 K/mcL LAB HEMETOLOGY METHOD 02/28/2025 11:29 AM EDT [facility] Monocytes Absolute 0.63 0.20 - 1.00 K/mcL LAB [facility]OLOGY [facility] Eosin[facility] Absolute 0.27 0.00 - 0.50 K/mcL LAB HEMETOLOGY METHOD 02/28/2025 11:29 AM EDT [facility] Basophils Absolute 0.10 0.00 - 0.20 K/mcL LAB HEMETOLOGY METHOD 02/28/2025 11:29 AM EDT [facility] Immature Granulocytes Absolute 0.04(H) 0.00 - 0.03 K/mcL LAB HEMETOLOGY METHOD 02/28/2025 11:29 AM EDT [facility] Blood Venous blood specimen / Unknown Venipuncture / Unknown 02/28/2025 9:25 AM EDT 02/28/2025 11:19 AM EDT Kade Le MD LAB BLOOD ORDERABLES Final Result [facility] [address] [place] [address], * Iron and TIBC (02/28/2025 9:25 AM EDT) Iron 144 50 - 160 mcg/dL LAB CHEMISTRY METHOD 02/28/2025 12:43 PM EDT [facility] TIBC 304 250 - 450 mcg/dL LAB CHEMISTRY METHOD 02/28/2025 12:43 PM EDT [facility] Iron Saturation 47 20 - 50 % LAB CHEMISTRY METHOD 02/28/2025 12:43 PM EDT [facility] Blood Venous blood specimen / Unknown Venipuncture / Unknown 02/28/2025 9:25 AM EDT 02/28/2025 11:20 AM EDT us Kade Le MD LAB BLOOD ORDERABLES Final Result Performing Organization Address [facility]/ZIP Co de Phone Number [facility] [address] [place] [address], [place] [phone] * Ferritin (02/28/2025 9:25 AM EDT) Pathologist [facility] Ferritin 142 26 - 388 ng/mL LAB CHEMISTRY METHOD 02/28/2025 12:43 PM EDT [facility] Blood Venous blood specimen / Unknown Venipuncture / Unknown 02/28/2025 9:25 AM EDT 02/28/2025 11:20 AM EDT us Kade Le MD LAB BLOOD ORDERABLES Final Result Performing Organization Address City/[facility]/ZIP Co de Phone Number [facility] [address] [place] [address], [place] [phone] * (ABNORMAL) Comprehensive metabolic panel (02/28/2025 9:25 AM EDT) Pathologist [facility] Sodium 136 133 - 145 mmol/L LAB CHEMISTRY METHOD 02/28/2025 12:43 PM EDT [facility] Potassium 4.3 3.5 - 5.5 mmol/L LAB CHEMISTRY METHOD 02/28/2025 12:43 PM EDT [facility] Chloride 102 96 - 110 mmol/L LAB CHEMISTRY METHOD 02/28/2025 12:[address] [facility] CO2 30 21 - 32 mmol/L LAB CHEMISTRY METHOD 02/28/2025 12:[address] [facility] Anion Gap 4 3 - 11 LAB CHEMISTRY METHOD 02/28/2025 12:[address] [facility] Glucose 143(H) 70 - 100 mg/dL LAB CHEMISTRY METHOD 02/28/2025 12:[address] [facility] BUN 20 5 - 25 mg/dL LAB CHEMISTRY METHOD 02/28/2025 12:[address] [facility] Creatinine 1.17 0.70 - 1.30 mg/dL LAB CHEMISTRY METHOD 02/28/2025 12:[address] [facility] eGFR 78 >=60 mL/min/1. 73m2 LAB CHEMISTRY METHOD 02/28/2025 12:[address] [facility] Comment:Calculation based on the??Chronic Kidney Disease Epidemiology Collaboration (CKD-EPI) equation refit??without adjustment for race. BUN/Creatinine Ratio 17.1 LAB CHEMISTRY METHOD 02/28/2025 12:[address] [facility] Calcium 9.7 8.5 - 10.5 mg/dL LAB CHEMISTRY METHOD 02/28/2025 12:[address] [facility] AST (SGOT) 14 10 - 42 unit/L LAB CHEMISTRY METHOD 02/28/2025 12:[address] [facility] ALT (SGPT) 26 10 - 60 unit/L LAB CHEMISTRY METHOD 02/28/2025 12:[address] [facility] Alkaline Phosphatase 72 42 - 121 unit/L LAB CHEMISTRY METHOD 02/28/2025 12:[address] [facility] Total Protein 7.4 6.0 - 8.0 g/dL LAB CHEMISTRY METHOD 02/28/2025 12:43 PM EDT [facility] Albumin 4.3 3.2 - 5.0 g/dL LAB CHEMISTRY METHOD 02/28/2025 12:43 PM EDT [facility] Total Bilirubin 0.6 0.0 - 1.4 mg/dL LAB CHEMISTRY METHOD 02/28/2025 12:43 PM EDT [facility] Blood Venous blood specimen / Unknown Venipuncture / Unknown 02/28/2025 9:25 AM EDT 02/28/2025 11:20 AM EDT Result [facility] Kade Le MD LAB BLOOD ORDERABLES Final Result [facility]) [facility] [address] [place] [address], [place] [phone] * Urine Albumin Creatinine Ratio (07/05/2024) Pathologist [facility] Urine Albumin Creatinine Ratio abstracted Result [facility] Provider HEALTH MAINTENANCE Final Result * Hemoglobin A1c (07/05/2024) [facility] Hemoglobin A1C 5.5 <=6.5 % Blood Venous blood specimen / Unknown Result [facility] Provider LAB BLOOD ORDERABLES Nadya l Result * (ABNORMAL) Lipid panel (07/05/2024) [facility] LDL/HDL Ratio 2 0 - 4 Triglycerides 169(A) 0 - 150 mg/dL Cholesterol 112 0 - 200 mg/dL HDL 52 >=40 mg/dL LDL Cholesterol 27 0 - 100 mg/dL Blood Venous blood specimen / Unknown Result [facility] Historical Provider LAB BLOOD ORDERABLES Nadya l Result * Diabetes Eye Exam (07/04/2024) Pathologist [facility] Diabetes: Annual Retina Eye Exam abstracted Result [facility] Historical Provider HEALTH MAINTENANCE Final Result * Diabetes Foot Exam (04/26/2023) Diabetes: Annual Foot Exam abstracted Historical Provider HEALTH MAINTENANCE Final Result * Colonoscopy (12/18/2020) Pathologist [facility] Colonoscopy no inperatati on,abstact ed Anatomical Region Laterality Modality Other Historical Provider HEALTH MAINTENANCE Final Result * HIV Screening (04/15/2015) Pathologist [facility] HIV Screening abstracted Historical Provider HEALTH MAINTENANCE Final Result from Last 3 Months or Most Recently Relevant to Health Maintenance Insurance [employer] Care Teams Steel Burner Relationship Specialty Start Date End Date Earnest Dorado PA 4 [facility] [place] [address] PCP - General Internal Medicine 10/09/24
== END 2025-04-18 11:53 | disposition home or self-care (01) ==
LOC: HO.BBR 11:52
PROVIDERS: PCP Physician Assistant Medical; Visit Provider Internal Medicine Hematology & Oncology
DX: Z13.89 Encounter for screening for other disorder (principal)

== ENCOUNTER 2025-05-02 10:11 | Outpatient (REF) | payer OTHER, SELFPAY | END 2025-05-02 10:12 | disposition home or self-care (01) | LOC: HO.BBR 10:11 | PROVIDERS: PCP Physician Assistant Medical; Visit Provider Internal Medicine Hematology & Oncology | DX: Z13.89 Encounter for screening for other disorder (principal) ==

== ENCOUNTER 2025-05-15 08:46 | Outpatient (REF) | payer OTHER, SELFPAY ==
--- OUTSIDE RECORDS SUMMARY | 2025-05-15 08:54 | XMS_ITS | Clinical Summary ---
Author Organization [facility] Address [address] [place], [place] [id number] Care Team Providers Care Teletypesetter Operator Name Role Phone Earnest Dorado PA-C [...] 72 08/30/2024 11:34 AM EDT Temperature 36.7 C (98 F) 08/30/2024 11:34 AM EDT Respiratory Rate - [...] Colon Cancer Screening (Colonoscopy) 2023 Influenza Vaccine (Season Ended) 2025 09/18/20 20 Pneumococcal Vaccine Aged Out 03/27/2019 No long er eligible based on patient's age to complete this topic RSV Ped < 20 months Aged Out No longe r eligible based on patient's age to complete this topic Care Teams Teletypesetter Operator Relationship Specialty Start Date End Date Earnest Dorado PA-C PCP - General Medical Services 07/09/24
--- OUTSIDE RECORDS SUMMARY | 2025-05-15 08:54 | XMS_ITS | Continuity of Care Document ---
Author Organization [place] [facility], [id number] Address [address] [address] Assessment Encounter Date Assessment Date Assessment LastModified by Organization Details LastModified Time 05/13/2025 05/13/2025 -patient with recurrent lumbar radicular symptoms affecting his LLE -will plan for repeat L5/1 interlaminar SHANA (L>>R) to help with his radicular pain -will start lyrica 25mg TID, advised to start QHS and increase as tolerated -given new PT referral -discussed about possibly obtaining new lumbar spine MRI, however given normal strength findings on exam, will defer for now, advised patient that if he notices any inability to lift his leg, or if he's tripping/fallin g because of weakness in his legs, he should seek immediate medical help -15 minutes was used for chart review, interviewing/ex amining, and counseling the patient during today's visit, and patient denies having any other further questions/pratibha rns Not available 05/13/2025 12:06:53 Plan of Treatment Reminders Order Date Submit Date Provider Last Modified By Organization Details Last Modified Time Details Appointments WAA PROCEDURE 30 2024 09:00A Tesha Kennedy MD Not available Not available Not available Lab None recorded. Referral physical therapist referral - lumbar radiculop athy--LBP with left-side d leg pain; evaluate and treat--2- 3x/week for 6-8 weeks; focus on strengthe karan and stretchin g exercises (active exercises ) 2024 025 [email or web address] Not available 05/13/2025 12:01:32 Procedures None recorded. Surgeries None recorded. Imaging None recorded. Medication Orders Lyrica 25 mg capsule 2024 025 [id number], [address], [place], [id number], 05/13/2025 12:01:39 Patient TargetsNo targets recorded. Patient InstructionsNo instructions recorded. Reason for Referral Physical Therapist Referral for Lumbar radiculopathy lumbar radiculopathy--LBP with left-sided leg pain; evaluate and treat--2-3x/week for 6-8 weeks; focus on strengthening and stretching exercises (active exercises) Referring Physician: Jovanny Kennedy, Pain Management, Encounter Date: 05/13/2025 Problems Name Problem SNOMED Code Status Onset Date Resolution Date Notes Provider Name and Address Organization Details Recorded Time Lumbar radiculopathy 142484683 Active 2024 Jovanny Kennedy MD [facility], [facility] 12:00:00 Problem Notes None recorded. Procedures Surgical History Date Name Laterality Status Provider Name and Address Organization Details Recorded Time [facility] completed Not [facility] 03[facility]44 Imaging Results None recorded. Procedure Notes None recorded. Medical Equipment None Reported. Allergies Allergen ID Allergen Name Allergen Category Reaction Reaction Severity Criticality Documentation Date Start Date Code Code System Note Provider Name and Address Organization Details Recorded Time 33882 erythromy yasmani medicatio n swelling Not available Not available 12/24/20242020 4053 RxNorm React ion: Swell ing; Comme nt: dfnam e: Christin; dlnam e: Minic hello ; Physi cian_ Suffi x: RN; Physi cian_ Speci alty: Rajendra barrios Nurse ; ; Not Available [facility] 16:34:16 Medications Name Sig Start Date Stop Date Status Note LastModified by Organization Details LastModified Time cyclobenza jen 10 mg tablet TAKE 1 TABLET BY MOUTH THREE TIMES DAILY FOR 4 DAYS FOR MUSCLE SPASM. MAY CAUSE DROWSINES S. DO NOT DRIVE OR WORK WHILE TAKING THIS MEDICATIO N active Not Available Not Available No t Available atorvastat in 40 mg tablet Take 40 mg by mouth daily. active NPI: [id number]; Not Available Not Available Not Available methocarba mol 500 mg tablet Take 1 tablet (500 mg total) by mouth 3 (three) times a day as needed (muscle spasms). 2022 active NPI: [id number]; Not Available Not Available Not Available metformin 500 mg tablet Take 500 mg by mouth 3 (three) times a day. active dfname: Aj garcia; dlname: Lciha; Physician _Addr1: [facility]; Physician _City: [place]; Physician _State: [place]; Physician _PostalCo de: [id number]; NPI: [id number]; Physician _Suffix: ; Physician _Phone: tel: [phone]; Not Available Not Available Not Available atorvastat in 80 mg tablet TAKE 1 TABLET BY MOUTH DAILY active Not Available Not Available No t Available meloxicam 15 mg tablet Take 1 tablet (15 mg total) by mouth daily as needed for pain. 2022 active NPI: [id number]; Not Available Not Available Not Available nortriptyl ine 10 mg capsule TAKE 1 CAPSULE(1 0 MG) BY MOUTH EVERY NIGHT AT BEDTIME 2020 active dfname: Jovanny; dminit: Johnnie; dlname: Brent; Physician _Addr1: [address] [place] [address]; Physician _Addr2: [facility]; Physician _City: [place]; Physician _State: [place]; Physician _PostalCo de: [id number]; NPI: [id number]; Physician _Suffix: ; Physician _Phone: tel: [phone]; Physician _Fax: fax:[phone]; Physician _Specialt y: Anesthesi ology; Not Available Not Available Not Available omeprazole 20 mg capsule,de layed release TAKE 1 CAPSULE BY MOUTH DAILY active Not Available Not Available No t Available methylpred nisolone 4 mg tablets in a dose pack FOLLOW PACKAGE DIRECTION S active Not Available Not Available No t Available fluticason e propionate 50 mcg/actuat ion nasal spray,susp ension SHAKE LIQUID AND USE 2 SPRAYS IN EACH NOSTRIL DAILY active Not Available Not Available No t Available metformin ER 500 mg tablet,ext ended release 24 hr TAKE 2 TABLETS BY MOUTH TWICE DAILY WITH FOOD active Not Available Not Available No t Available sertraline 50 mg tablet TAKE 1/2 TABLET BY MOUTH DAILY FOR 1 WEEK THEN INCREASE TO 1 TABLET DAILY active Not Available Not Available No t Available glipizide 5 mg tablet Take 5 mg by mouth 2 (two) times a day. active NPI: [id number]; Not Available Not Available Not Available metoclopra mide 10 mg tablet Take 1 tablet (10 mg total) by mouth 4 (four) times a day. active dfname: Not; dminit: In System; dlname: Provider; Not Available Not Available Not Available Novolog FlexPen U-100 Insulin aspart 100 unit/mL (3 mL) subcutaneo us ADMINISTE R 4 UNITS UNDER THE SKIN THREE TIMES DAILY WITH MEALS active Not Available Not Available No t Available Lyrica 25 mg capsule Take 1 capsule 3 times a day by oral route. 2024 active Not Available Not Available Not Avai lable BD Ultra-Fine Short Pen Needle 31 gauge x 5/16 USE DIRECTED WITH INSULIN PEN 4 TIMES DAILY active Not Available Not Available No t Available Basaglar KwikPen U-100 Insulin 100 unit/mL (3 mL) subcutaneo us ADMINISTE R 26 UNITS UNDER THE SKIN 1 TIME EACH DAY active Not Available Not Available No t Available Fiasp FlexTouch U-100 Insulin 100 unit/mL (3 mL) subcutaneo us pen ADMINISTE R 4 TO 6 UNITS UNDER THE SKIN THREE TIMES DAILY active Not Available Not Available No t Available FreeStyle Jamil 3 Plus Sensor device USE DIRECTED TO TEST BLOOD GLUCOSE active Not Available Not Available No t Available Vitals Date Recorded Body height Body mass index (BMI) Body weight Heart rate Body temperature Systolic And Diastolic Provider Name and Address Organization Details Last Updated DateTime 5 172.72 cm 25.8 kg/m2 21121.7 g 78 /min 98 [degF] 121/82 mm[Hg] Mallory Vazquez [facility] 5 11:33:54 Social History None recorded. Functional Status Question Answer Note LastModified by Organization D etails LastModified Time What is your level of alcohol consumption? None [email or web address] Information not available 01/21/2025 Mental Status None recorded. Family History Relationship Description Onset Age of this Age Resolved Age Notes LastModified by Organization Details LastModified Time Mother Diabetes mellitus with no mention of complication Diabet es; Member s: Mother Not available 01/21/2025 03:42:34 Father Cancer confirmed Cancer ; Member s: Father ; Commen ts: kurtis sheehan Not available 01/21/2025 03:42:34 Medical History No medical history recorded. Past Encounters Encounter ID Performer Location Encounter Start Date Encounter Closed Date Diagnosis/Indication Diagnosis SNOMED-CT Code Diagnosis ICD10 Code Diagnosis Note [id number] Jovanny Kennedy MD [id number] [address] [place] [address] 05/13/2025 11:28:05 05/13/2025 12:11:03 Lumbar radiculopathy 043934477 M54.16 Health Concerns Section Related Observation LastModified by Organization Detai ls LastModified Time None Recorded Concern Status LastModified by Organization Details LastModified Time None Recorded Payers Encounter Date Sequence Insurance Name Policy Number Policy Reza Covered Member ID Reza Member ID Guarantor Name 05/13/2025 1 [employer] (EPO) [id number] Toan Savage [id number] Toan Savage Notes Date Note Type Note Provider Name and Address Organization Details Recorded Time 05/13/2025 text/html Toan rosa is a pleasant 44 y.o. year old male, who has a past medical history of Diabetes mellitus (HCC). who presents with moderate left-sided LBP with radiation into the left leg along the lateral-posterior aspect that extends down into the calf. He states the pain has been present since 08/2018, he does note that he was moving furniture at around the time that he started having this pain. 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 Patient has tried: at least 6 weeks of PT/HEP within the past 6 months Current pain medications: tylenol Previous Medications and doses tried/effect: none Previous Nerve Block or Injection:Left L4 TFESI (03/06/2019)--minima l benefit (outside MD) Left L4 TFESI (05/27/2019)--minima l benefit (outside MD) L4/5 interlam SHANA (06/05/2020)--~80% benefit (outside MD) Left SIJ injection (02/05/2021)--minima l benefit (outside MD) L4/5 interlam SHANA (L>>R) (07/01/21)--90% relief for 5-6 months L4/5 interlam SHANA (L>>R) (02/04/22)--90% for ~1 year L4/5 interlam SHANA (L>>R) (05/30/23)--90% for ~7-8 months L4/5 interlam SHANA (L>>R) (03/22/24)--90% for ~4-5 months L4/5 interlam SHANA (L>>R) (07/30/24)--90% for ~4-5 months L4/5 interlam SHANA (L>>R) (12/17/24)--75% for ~3-4 months I personally reviewed prior radiological services. I also obtained relevant old records and reviewed lab data. Imaging Studies: MRI lumbar spine (11/23/2018): L1-2, L2-3, L3-4 levels are unremarkable. L4-5 level there is a mild bulging the disc more prominent to the left. There is narrowing of the left lateral recess. There is narrowing of the left L4 neuroforamina. There is effacement of the left L4 nerve root. There is mild hypertrophy of the facet joints. L5-S1 there is mild hypertrophy of the facet joints. There is no focal disc herniation spinal stenosis or nerve root compression. 05/18/23: Patient seen/examined in the office. He reports that he has return of his lower back pain with radiation to the left lower extremity along the lateral posterior aspect down to the level of the ankle. He reports that his most recent epidural steroid injection on 02/04/2022 lasted for approximately 1 year. He does report noticing some heaviness sensation in the anterior thigh bilaterally that has been going on for a few years now. He reports that the heaviness sensation does improve with activity at times. He denies any bowel or bladder incontinence. No saddle anesthesia. He denies any recent trips/falls, and still finds that he is able to lift his legs normally. He also does report that 2 to 3 weeks ago he started noticing some pain over the right periscapular region. He does have some tenderness to palpation over that area. He also does report being relatively recently diagnosed with pancreatitis and was told that the pain over that area could be related to his pancreatitis pain. However he does find that he still will have the pain over the periscapular region without his normal abdominal pain. Currently there is no cause that has been found yet for the pancreatitis. Patient denies any alcohol use. 05/13/25: Patient seen/examined in the office. He reports that his most recent epidural steroid injection did help him quite significantly but only lasted approximately 3 to 4 months. He currently reports a 9 out of 10 pain in his lower back that is radiating down his left lower extremity along the lateral aspect to the level of the ankle/foot. He denies any weakness in her lower extremities. No bowel or bladder incontinence. No saddle anesthesia. Jovanny Kennedy MD [facility], [place] [facility] 05/13/2025 12:07:25
--- OUTSIDE RECORDS SUMMARY | 2025-05-15 08:54 | XMS_ITS | Clinical Summary ---
Author Organization [facility] [address] [place] [address] [place] [address] [place] [address] Phone Care Team Providers Care Card Lacer Name Role Phone Earnest Doraod Primary Care Provider [phone] Allergies Active Allergy Reactions Criticality Noted Date [...] Problem Noted Date Diagnosed Date Hereditary hemochromatosis ([facility] V24) 024 Lumbar radiculopathy 06/23/2023 Acute pancreatitis 05/04/2023 Overview (09/27/2024): [facility] ER History of 2019 novel coronavirus disease (COVID -19) 07/19/2022 Diabetes mellitus type 2 wit h neurological manifestations ([facility] V24, [facility] V28) 09/18/2020 Diabetic neuropathy ([facility] V24, [facility] V28) 1 11/18/2019 Deviated septum 11/21/2016 Umbilical hernia 11/21/2016 IBS (irritable bowel syndrome) 02/19/2013 Overview (09/27/2024): Diarrhea predominant, onset 2010. Post-op pain 02/10/2011 Dysuria 01/31/2011 Hyperlipidemia 08/06/2010 Acne 07/13/2010 Encounters Date Type Department Care Team Description 02/28/2025 9:00 AM EDT Office Visit [facility] Hematology Oncology [address] [place] [address] Kade Le MD Hereditary hemochromatosis ([facility] V24) (Primary Dx) from Last 3 Months [...] 78 02/28/2025 8:56 AM EDT Temperature 36.3 C (97.3 F) 02/28/2025 8:56 AM EDT Respiratory Rate 16 12/17/2024 7:53 AM EST [...] Description 05/29/2025 9:15 AM EDT Office Visit [facility] Hematology Oncology [address] [place] [phone] Kade Le MD [address] [place] [address] 06/17/2025 9:00 AM EDT Appointment [facility] Pain Management [address] [place] [address] Jovanny Kennedy MD [address] [place] [address] Health Maintenance Due Date Last Done Comments [...] Albumin-Creatinine Ratio (uACR) 07/05/2025 07/05/2024 Influenza Vaccine (#1) 2025 , 11/21/2016 Diabetes: Annual GFR (Glomerular Filtration Rate) [...] Routine 02/28/2025 9:25 AM EDT Hereditary hemochromatosis ([facility] V24) IRON AND TIBC Routine 02/28/2025 9:25 AM EDT Hereditary hemochromatosis ([facility] V24) FERRITIN Routine 02/28/2025 9:25 AM EDT Hereditary hemochromatosis ([facility] V24) CBC AND DIFFERENTIAL Routine 02/28/2025 9:25 AM EDT Hereditary hemochromatosis ([facility] V24) COMPREHENSIVE METABOLIC PANEL Routine 02/28/2025 9:25 AM EDT Hereditary hemochromatosis ([facility] V24) HM URINE ALBUMIN CREATININE RATIO Routine 07/05/2024 HEMOGLOBIN A1C Routine 07/05/2024 LIPID PANEL Routine 07/05/2024 DIABETES EYE EXAM Routine 07/04/2024 DIABETES FOOT EXAM Routine 04/26/2023 HM COLONOSCOPY Routine 12/18/2020 HIV SCREENING Routine 04/15/2015 from Last 3 Months or Most Recently Relevant to Health Maintenance Results * (ABNORMAL) CBC auto differential (02/28/2025 9:25 AM EDT) WBC 7.9 4.8 - 10.8 K/[facility] LAB HEMETOLOGY METHOD 02/28/2025 11:29 AM EDT [facility] RBC 4.60 4.50 - 5.50 M/mcL LAB HEMETOLOGY METHOD 02/28/2025 11:29 AM [facility] Hemoglobin 15.1 13.5 - 17.5 g/dL LAB HEMETOLOGY METHOD 02/28/2025 11:29 AM [facility] Hematocrit 42.7 42.0 - 54.0 % LAB HEMETOLOGY METHOD 02/28/2025 11:29 AM [facility] MCV 92.6 79.0 - 98.0 FL LAB HEMETOLOGY METHOD 02/28/2025 11:29 AM [facility] MCH 32.8(H) 27.0 - 32.0 pcg LAB HEMETOLOGY METHOD 02/28/2025 11:29 AM [facility] MCHC 35.4 32.0 - 37.0 g/dL LAB HEMETOLOGY METHOD 02/28/2025 11:29 AM [facility] RDW 12.0 11.0 - 15.0 % LAB HEMETOLOGY METHOD 02/28/2025 11:29 AM [facility] Platelets 302 130 - 400 K/mcL LAB HEMETOLOGY METHOD 02/28/2025 11:29 AM [facility] MPV 9.6 7.0 - 11.0 FL LAB HEMETOLOGY METHOD 02/28/2025 11:29 AM [facility] NRBC 0.0 <1.0 % LAB HEMETOLOGY METHOD 02/28/2025 11:29 AM [facility] NRBC Absolute 0.00 <0.10 K/mcL LAB HEMETOLOGY METHOD 02/28/2025 11:29 AM [facility] Neutrophils Relative 60.2 % LAB HEMETOLOGY METHOD 02/28/2025 11:29 AM [facility] Lymphocytes Relative 26.6 % LAB HEMETOLOGY METHOD 02/28/2025 11:29 AM [facility] Monocytes Relative 8.0 % LAB HEMETOLOGY METHOD 02/28/2025 11:29 AM [facility] Eosinophils Relative 3.4 % LAB HEMETOLOGY METHOD 02/28/2025 11:29 AM [facility] Basophils Relative 1.3 % LAB HEMETOLOGY METHOD 02/28/2025 11:29 AM [facility] Immature Granulocytes Relative 0.5 % LAB HEMETOLOGY METHOD 02/28/2025 11:29 AM [facility] Neutrophils Absolute 4.73 1.50 - 7.00 K/mcL LAB HEMETOLOGY METHOD 02/28/2025 11:29 AM [facility] Lymphocytes Absolute 2.09 1.00 - 5.00 K/mcL LAB HEMETOLOGY METHOD 02/28/2025 11:29 AM [facility] Monocytes Absolute 0.63 0.20 - 1.00 K/mcL LAB HEMETOLOGY METHOD 02/28/2025 11:29 AM [facility] Eosinophils Absolute 0.27 0.00 - 0.50 K/mcL LAB HEMETOLOGY METHOD 02/28/2025 11:29 AM [facility] Basophils Absolute 0.10 0.00 - 0.20 K/mcL LAB HEMETOLOGY METHOD 02/28/2025 11:29 AM [facility] Immature Granulocytes Absolute 0.04(H) 0.00 - 0.03 K/mcL LAB HEMETOLOGY METHOD 02/28/2025 11:29 AM [facility] Blood Venous blood specimen / Unknown Venipuncture / Unknown 02/28/2025 9:25 AM EDT 02/28/2025 11:19 AM EDT us Kade Le MD LAB BLOOD ORDERABLES Final Result Performing Organization Address [facility]/ZIP Co de Phone Number [facility] [address] [place] [address], [place] [phone] * Iron and TIBC (02/28/2025 9:25 AM EDT) Iron 144 50 - 160 mcg/dL LAB CHEMISTRY METHOD 02/28/2025 12:43 PM EDT [facility] TIBC 304 250 - 450 mcg/dL LAB CHEMISTRY METHOD 02/28/2025 12:43 PM EDT [facility] Iron Saturation 47 20 - 50 % LAB CHEMISTRY METHOD 02/28/2025 12:43 PM EDT [facility] Blood Venous blood specimen / Unknown Venipuncture / Unknown 02/28/2025 9:25 AM EDT 02/28/2025 11:20 AM EDT us Kade Le MD LAB BLOOD ORDERABLES Final Result Performing Organization Address [facility]/ZIP Co de Phone Number [facility] [address] [place] [address], [place] [phone] * Ferritin (02/28/2025 9:25 AM EDT) Ferritin 142 26 - 388 ng/mL LAB CHEMISTRY METHOD 02/28/2025 12:43 PM EDT [facility] Blood Venous blood specimen / Unknown Venipuncture / Unknown 02/28/2025 9:25 AM EDT 02/28/2025 11:20 AM EDT us Kade Le MD LAB BLOOD ORDERABLES Final Result Performing Organization Address City/[facility]/ZIP Co de Phone Number [facility] [address] [place] [address], [place] [phone] * (ABNORMAL) Comprehensive metabolic panel (02/28/2025 9:25 AM EDT) Sodium 136 133 - 145 mmol/L LAB CHEMISTRY METHOD 02/28/2025 12:43 PM [facility] Potassium 4.3 3.5 - 5.5 mmol/L LAB CHEMISTRY METHOD 02/28/2025 12:43 PM [facility] Chloride 102 96 - 110 mmol/L LAB CHEMISTRY METHOD 02/28/2025 12:43 PM [facility] CO2 30 21 - 32 mmol/L LAB CHEMISTRY METHOD 02/28/2025 12:43 PM [facility] Anion Gap 4 3 - 11 LAB CHEMISTRY METHOD 02/28/2025 12:43 PM [facility] Glucose 143(H) 70 - 100 mg/dL LAB CHEMISTRY METHOD 02/28/2025 12:43 PM [facility] BUN 20 5 - 25 mg/dL LAB CHEMISTRY METHOD 02/28/2025 12:43 PM [facility] Creatinine 1.17 0.70 - 1.30 mg/dL LAB CHEMISTRY METHOD 02/28/2025 12:43 PM [facility] eGFR 78 >=60 mL/min/1. 73m2 LAB CHEMISTRY METHOD 02/28/2025 12:43 PM [facility] Comment:Calculation based on the Chronic Kidney Disease Epidemiology Collaboration (CKD-EPI) equation refit without adjustment for race. BUN/Creatinine Ratio 17.1 LAB CHEMISTRY METHOD 02/28/2025 12:43 PM [facility] Calcium 9.7 8.5 - 10.5 mg/dL LAB CHEMISTRY METHOD 02/28/2025 12:43 PM [facility] AST (SGOT) 14 10 - 42 unit/L LAB CHEMISTRY METHOD 02/28/2025 12:43 PM [facility] ALT (SGPT) 26 10 - 60 unit/L LAB CHEMISTRY METHOD 02/28/2025 12:43 PM [facility] Alkaline Phosphatase 72 42 - 121 unit/L LAB CHEMISTRY METHOD 02/28/2025 12:43 PM EDT [facility] Total Protein 7.4 6.0 - 8.0 g/dL LAB CHEMISTRY METHOD 02/28/2025 12:43 PM EDT [facility] Albumin 4.3 3.2 - 5.0 g/dL LAB CHEMISTRY METHOD 02/28/2025 12:43 PM EDT [facility] Total Bilirubin 0.6 0.0 - 1.4 mg/dL LAB CHEMISTRY METHOD 02/28/2025 12:43 PM EDT [facility] Blood Venous blood specimen / Unknown Venipuncture / Unknown 02/28/2025 9:25 AM EDT 02/28/2025 11:20 AM EDT Kade Le MD LAB BLOOD ORDERABLES Final Result [facility] [address] [place] [address], * HM Urine Albumin Creatinine Ratio (07/05/2024) [facility] HM Urine Albumin Creatinine Ratio abstracted Result [facility] Historical Provider HEALTH MAINTENANCE Final Result * Hemoglobin A1c (07/05/2024) [facility] Hemoglobin A1C 5.5 <=6.5 % Blood Venous blood specimen / Unknown Result [facility] Historical Provider LAB BLOOD ORDERABLES Nadya l Result * (ABNORMAL) Lipid panel (07/05/2024) [facility] LDL/HDL Ratio 2 0 - 4 Triglycerides 169(A) 0 - 150 mg/dL Cholesterol 112 0 - 200 mg/dL HDL 52 >=40 mg/dL LDL Cholesterol 27 0 - 100 mg/dL Blood Venous blood specimen / Unknown Result [facility] Historical Provider LAB BLOOD ORDERABLES Nadya l Result * Diabetes Eye Exam (07/04/2024) Pathologist [facility] Diabetes: Annual Retina Eye Exam abstracted Historical Provider HEALTH MAINTENANCE Final Result * Diabetes Foot Exam (04/26/2023) Pathologist [facility] Diabetes: Annual Foot Exam abstracted Result [facility] Historical Provider HEALTH MAINTENANCE Final Result * Colonoscopy (12/18/2020) Pathologist [facility] Colonoscopy no inperatati on,abstact ed Anatomical Region Laterality Modality Other Historical Provider HEALTH MAINTENANCE Final Result * HIV Screening (04/15/2015) [facility] HIV Screening abstracted Historical Provider HEALTH MAINTENANCE Final Result from Last 3 Months or Most Recently Relevant to Health Maintenance [place] [id number] [place] [address] Care Teams Card Lacer Relationship Specialty Start Date End Date Earnest Dorado PA [address] [place], [place] [address] [address] PCP - General Internal Medicine 10/09/24
--- OUTSIDE RECORDS SUMMARY | 2025-05-15 08:54 | XMS_ITS ---
Author Name [facility] Organization Unknown Encounters Encounter Type Encounter Reason Primary Diagnosis Location Date Ambulatory [facility] 05/13/2025 Ambulatory [facility] 05/13/2025 Ambulatory [facility] 12/05/2024 Ambulatory [facility] 08/23/2024 Care Team Organization Name Specialty Phone Email Start Date End Da te [facility] 2024
== END 2025-05-15 08:47 | disposition home or self-care (01) ==
LOC: HO.BBR 08:46
PROVIDERS: PCP Physician Assistant Medical; Visit Provider Internal Medicine Hematology & Oncology
DX: Z13.89 Encounter for screening for other disorder (principal)

== ENCOUNTER 2025-05-29 09:54 | Outpatient (REF) | payer OTHER, SELFPAY ==
--- OUTSIDE RECORDS SUMMARY | 2025-05-29 09:15 | XMS_ITS | Encounter Summary ---
Author Organization [facility] [place] [address] Care Team Providers Care Blanket Winder Operator Name Role Phone Earnest Dorado Primary Care Provider [phone] Reason for Visit * Reason Comments Follow-up Encounter Details Date Type Department Care Team (Latest Contact Info) Description 05/29/2025 9:15 AM EDT Office Visit [facility] Hematology Oncology [address] [place] [address] Kade Le MD [address] [place] [address] Hereditary hemochromatosis (CMS/HCC V24) (Primary Dx) Social History Tobacco Use Types [...] Sign Reading Time Taken Comments Blood Pressure 130/88 05/29/2025 9:09 AM EDT Pulse 56 05/29/2025 9:09 AM EDT Temperature 36.1 C (96.9 F) 05/29/2025 9:09 AM EDT Respiratory Rate - - Oxygen Saturation 100% 05/29/2025 9:09 AM EDT Inhaled Oxygen Concentration - - Weight 75.8 kg (167 lb) 05/29/2025 9:09 AM EDT Height - - Body Mass Index 25.39 12/17/2024 7:23 AM EST documented in this encounter Progress Notes * Kade Le MD - 05/29/2025 9:15 AM EDT Diagnosis/treatment: Hereditary hemochromatosis. He undergoes phlebotomies every 2 weeks. Interval history: The patient is a 44-year-old [...] dyspnea on exertion, or leg edema. He is tolerating phlebotomies well without adverse effects. He denies headaches or visual changes. He [...] daughter. 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 He has 1 son [...] edema. Skin: No rash. Neurologic: Normal gait. Assessment/plan: The patient is a 44-year-old gentleman [...] phlebotomies at 1 unit every 2 weeks. He is tolerating phlebotomies well without adverse effects. We will monitor CBCs and LFTs and iron studies. We will monitor abdominal MRIs for iron deposition. His father and paternal uncle reportedly tested positive for germline BRCA genetic mutation. The patient states that he will also be tested. Visit summary: The patient is a 44-year-old gentleman who was diagnosed with hereditary hemochromatosis. AbdominalMRI showed marked iron deposition. We started a phlebotomy regimen 1 unit every 2 weeks. He is tolerating phlebotomies well without adverse effects. We will monitor CBCs and LFTs and iron studies. Wewill follow with periodic MRIs. This encounter is of moderate risk. The patient has a hereditary hemochromatosis, which is a life-threatening condition. We started a phlebotomy regimen. T documented in this encounter Plan of Treatment Upcoming Encounters Date Type Department Care Team (Late st Contact Info) Description 06/17/2025 9:00 AM EDT Hospital Encounter [facility] Pain Management [address] [place] [phone] Jovanny Kennedy MD [address] [place] [address] 08/28/2025 9:15 AM EDT Office Visit [facility] Hematology Oncology [address] [place] [phone] Kade Le MD [address] [place] [phone] documented as of this encounter Visit Diagnoses Diagnosis Hereditary hemochromatosis (CMS/HCC V24)- Primary Hereditary hemochromatosis documented in this encounter Care Teams Blanket Winder Operator Relationship Specialty Start Date End Date Earnest Dorado PA [address] [place] [address] PCP - General Internal Medicine 10/09/24 documented as of this encounter
--- OUTSIDE RECORDS SUMMARY | 2025-05-29 10:20 | XMS_ITS | Clinical Summary ---
Author Organization [facility] Address [address] [place], [place] [id number] Care Team Providers Care Director Of Exhibits Name Role Phone Earnest Dorado PA-C Primary [...] Cancer Screening (Colonoscopy) 2023 Influenza Vaccine (#1) 2025 09/18/2020 Pneumococcal Vaccine Aged Out 03/27/2019 No long er eligible based on patient's age to complete this topic RSV Ped < 20 months Aged Out No longe r eligible based on patient's age to complete this topic Care Teams Director Of Exhibits Relationship Specialty Start Date End Date Earnest Dorado, [facility] PCP - General Medical Services 07/09/24
== END 2025-05-29 09:55 | disposition home or self-care (01) ==
LOC: HO.BBR 09:54
PROVIDERS: PCP Physician Assistant Medical; Visit Provider Internal Medicine Hematology & Oncology
DX: Z13.89 Encounter for screening for other disorder (principal)

== ENCOUNTER 2025-06-12 08:44 | Outpatient (REF) | payer OTHER, SELFPAY ==
--- OUTSIDE RECORDS SUMMARY | 2025-06-12 08:55 | XMS_ITS | Clinical Summary ---
Author Organization [facility] Address [address] [place], [place] [id number] Care Team Providers Care Equalizer Operator Name Role Phone Earnest Dorado PA-C [...] age to complete this topic Care Teams Equalizer Operator Relationship Specialty Start Date End Date Earnest Dorado, [facility] PCP - General Medical Services 07/09/24
--- OUTSIDE RECORDS SUMMARY | 2025-06-12 08:55 | XMS_ITS | Encounter Summary ---
Author Organization [facility] Address [address] [place] [address] Care Team Providers Care Pump Installation And Servicer Name Role Phone Joseph Browne MD Primary Care Provider Derik Hoffmann MD Primary Care Provider [facility] Pcp Primary Care Provider Dustin Allen MD Primary Care Provider [phone] Earnest Dorado PA-C Primary Care Provider [phone] Reason for Visit * Reason Onset Date Comments Urinary Tract Infection 05/08/2012 Encounter Details Date Type Department Care Team Description 05/08/2012 Telephone Adult [address] [address] Joseph Browne MD Urinary Tract Infection Social [...] 2 days PCP: Joseph Browne MD Payor: [facility] Plan: HMO $20 [place] 9163 Product Type: HMO [id number] Leave message at work for pt to call you back if you need to speak with him documented in this encounter Plan of Treatment Not on file documented as of this encounter Visit Diagnoses Not on filedocumented in this encounter Care Teams Pump Installation And Servicer Relationship Specialty Start Date End Date Joseph Browne MD PCP - General 07/12/10 11/12/14 Derik Kaminski MD PCP - General Internal Medicine 11/17/14 10/25/15 [facility], Pcp PCP - General Internal Medicine 10/26/15 09/20/16 Dustin Price MD [address] [place] [address] PCP - General Internal Medicine 09/21/16 02/22/21 Earnest Dorado PA-C [address] [place] [address] PCP - General Internal Medicine 02/23/21 documented as of this encounter
--- OUTSIDE RECORDS SUMMARY | 2025-06-12 08:55 | XMS_ITS | Clinical Summary ---
Author Organization [facility] [address] [place] [address] [place] [address] [place] [address] Phone Care Team Providers Care Food Preparer Name Role Phone Earnest Dorado Primary Care Provider [phone] Allergies Active Allergy Reactions Criticality Noted Date [...] Problem Noted Date Diagnosed Date Hereditary hemochromatosis ([facility] V24) 024 Lumbar radiculopathy 06/23/2023 Acute pancreatitis 05/04/2023 Overview (09/27/2024): [facility] ER History of 2019 novel coronavirus disease (COVID -19) 07/19/2022 Diabetes mellitus type 2 wit h neurological manifestations ([facility] V24, [facility] V28) 09/18/2020 Diabetic neuropathy ([facility] V24, [facility] V28) 1 11/18/2019 Deviated septum 11/21/2016 Umbilical hernia 11/21/2016 IBS (irritable bowel syndrome) 02/19/2013 Overview (09/27/2024): Diarrhea predominant, onset 2010. Post-op pain 02/10/2011 Dysuria 01/31/2011 Hyperlipidemia 08/06/2010 Acne 07/13/2010 Encounters Date Type Department Care Team Description 05/29/2025 9:15 AM EDT Office Visit [facility] Hematology Oncology [address] [place] [address] Kade Le MD Hereditary hemochromatosis ([facility] V24) (Primary Dx) from Last [...] F) 05/29/2025 9:09 AM EDT Respiratory Rate 16 12/17/2024 7:53 AM EST Oxygen Saturation 100% 05/29/2025 9:09 AM EDT Inhaled Oxygen Concentration - - Weight 75.8 kg (167 lb) 05/29/2025 9:09 AM EDT Height 172.7 cm (5' 8 ) 12/17/2024 7:23 AM EST Body Mass Index 25.39 12/17/2024 7:23 AM EST Plan of Treatment Upcoming Encounters Date Type Department Care Team (Late st Contact Info) Description 06/17/2025 9:00 AM EDT Hospital Encounter [facility] Pain Management [address] [place] [phone] Jovanny Kennedy MD [address] [place], [place] [id number] 08/28/2025 9:15 AM EDT Office Visit [facility] Hematology Oncology [address] [place] [phone] Kade Le MD [address] [place] [phone] Health Maintenance Due Date Last Done Comments Hepatitis B Vaccines (1 of 3 - 19+ 3-dose series) 1997 Pneumococcal Vaccine: Pediatrics (0 to 5 Years) and At-Risk Patients (6 to 49 Years) (2 of 2 - PCV) 03/27/2020 03/27/2019 Hepatitis C Screening 10/22/2022 Social Influencers of Health Screening 10/22/2022 Diabetes: Annual Foot Exam 04/26/2024 04/26/2023 COVID-19 Vaccine ( season) 2024 Depression Screening 11/13/2024 Diabetes: Blood Sugar Control Test (HGBA1C) 01/05/2025 07/05/2024, 07/05/2024 Diabetes: Annual Retina Eye Exam 07/04/2025 07/04/2024 Diabetes: Annual Urine Albumin-Creatinine Ratio (uACR) 07/05/2025 07/05/2024 Influenza Vaccine (#1) 2025 09/18/2020, 2016 Diabetes: Annual GFR (Glomerular Filtration Rate) 05/29/2026 05/29/2025, 02/28/2025, 07/05/2024, Additional history exists Cholesterol Screening (Lipid Panel) 07/05/2029 07/05/2024, 07/05/2024 [...] 20 months Aged Out No longer eligible based on patient's age to complete this topic Varicella Vaccines Aged Out No longer eligible based on patient's age to complete this topic Procedures Procedure Name Priority Date/Time Associated Diagnosis Comments CBC WITH AUTO DIFFERENTIAL Routine 05/29/2025 9:34 AM EDT Hereditary hemochromatosis ([facility] V24) IRON AND TIBC Routine 05/29/2025 9:34 AM EDT Hereditary hemochromatosis ([facility]/HCC V24) FERRITIN Routine 05/29/2025 9:34 AM EDT Hereditary hemochromatosis ([facility] V24) CBC AND DIFFERENTIAL Routine 05/29/2025 9:34 AM EDT Hereditary hemochromatosis ([facility] V24) COMPREHENSIVE METABOLIC PANEL Routine 05/29/2025 9:34 AM EDT Hereditary hemochromatosis ([facility] V24) HM URINE ALBUMIN CREATININE RATIO Routine 07/05/2024 HEMOGLOBIN A1C Routine 07/05/2024 LIPID PANEL Routine 07/05/2024 DIABETES EYE EXAM Routine 07/04/2024 DIABETES FOOT EXAM Routine 04/26/2023 COLONOSCOPY Routine 12/18/2020 HIV SCREENING Routine 04/15/2015 from Last 3 Months or Most Recently Relevant to Health Maintenance Results * (ABNORMAL) CBC auto differential (05/29/2025 9:34 AM EDT) WBC 8.1 4.8 - 10.8 K/[facility] LAB HEMETOLOGY METHOD 05/29/2025 12:17 PM EDT [facility] RBC 4.60 4.50 - 5.50 M/mcL LAB HEMETOLOGY METHOD 05/29/2025 12:17 PM [facility] Hemoglobin 13.8 13.5 - 17.5 g/dL LAB HEMETOLOGY METHOD 05/29/2025 12:17 PM [facility] Hematocrit 39.8(L) 42.0 - 54.0 % LAB HEMETOLOGY METHOD 05/29/2025 12:17 PM [facility] MCV 86.1 79.0 - 98.0 FL LAB HEMETOLOGY METHOD 05/29/2025 12:17 PM [facility] MCH 29.9 27.0 - 32.0 pcg LAB HEMETOLOGY METHOD 05/29/2025 12:17 PM [facility] MCHC 34.7 32.0 - 37.0 g/dL LAB HEMETOLOGY METHOD 05/29/2025 12:17 PM [facility] RDW 11.9 11.0 - 15.0 % LAB HEMETOLOGY METHOD 05/29/2025 12:17 PM [facility] Platelets 339 130 - 400 K/mcL LAB HEMETOLOGY METHOD 05/29/2025 12:17 PM [facility] MPV 9.6 7.0 - 11.0 FL LAB HEMETOLOGY METHOD 05/29/2025 12:17 PM [facility] NRBC 0.0 <1.0 % LAB HEMETOLOGY METHOD 05/29/2025 12:17 PM [facility] NRBC Absolute 0.00 <0.10 K/mcL LAB HEMETOLOGY METHOD 05/29/2025 12:17 PM [facility] Neutrophils Relative 58.4 % LAB HEMETOLOGY METHOD 05/29/2025 12:17 PM [facility] Lymphocytes Relative 28.8 % LAB HEMETOLOGY METHOD 05/29/2025 12:17 PM [facility] Monocytes Relative 7.6 % LAB HEMETOLOGY METHOD 05/29/2025 12:17 PM [facility] Eosinophils Relative 3.6 % LAB HEMETOLOGY METHOD 05/29/2025 12:17 PM [facility] Basophils Relative 1.1 % LAB HEMETOLOGY METHOD 05/29/2025 12:17 PM [facility] Immature Granulocytes Relative 0.5 % LAB HEMETOLOGY METHOD 05/29/2025 12:17 PM [facility] Neutrophils Absolute 4.71 1.50 - 7.00 K/mcL LAB HEMETOLOGY METHOD 05/29/2025 12:17 PM [facility] Lymphocytes Absolute 2.32 1.00 - 5.00 K/mcL LAB HEMETOLOGY METHOD 05/29/2025 12:17 PM [facility] Monocytes Absolute 0.61 0.20 - 1.00 K/mcL LAB HEMETOLOGY METHOD 05/29/2025 12:17 PM [facility] Eosinophils Absolute 0.29 0.00 - 0.50 K/mcL LAB HEMETOLOGY METHOD 05/29/2025 12:17 PM [facility] Basophils Absolute 0.09 0.00 - 0.20 K/mcL LAB HEMETOLOGY METHOD 05/29/2025 12:17 PM [facility] Immature Granulocytes Absolute 0.04(H) 0.00 - 0.03 K/mcL LAB HEMETOLOGY METHOD 05/29/2025 12:17 PM [facility] Blood Venous blood specimen / Unknown Venipuncture / Unknown 05/29/2025 9:34 AM EDT 05/29/2025 11:42 AM EDT us Kade Le MD LAB BLOOD ORDERABLES Final Result Performing Organization Address [facility]/ZIP Co de Phone Number [facility] [address] [place] [address], [place] [phone] * (ABNORMAL) Iron and TIBC (05/29/2025 9:34 AM EDT) Iron 48(L) 50 - 160 mcg/dL LAB CHEMISTRY METHOD 05/29/2025 3:08 PM EDT [facility] TIBC 363 250 - 450 mcg/dL LAB CHEMISTRY METHOD 05/29/2025 3:08 PM EDT [facility] Iron Saturation 13(L) 20 - 50 % LAB CHEMISTRY METHOD 05/29/2025 3:08 PM EDT [facility] Blood Venous blood specimen / Unknown Venipuncture / Unknown 05/29/2025 9:34 AM EDT 05/29/2025 11:43 AM EDT us Kade Le MD LAB BLOOD ORDERABLES Final Result Performing Organization Address [facility] Co de Phone Number [facility] [address] [place] [address], [place] [phone] * (ABNORMAL) Ferritin (05/29/2025 9:34 AM EDT) Ferritin 10(L) 26 - 388 ng/mL LAB CHEMISTRY METHOD 05/29/2025 3:08 PM EDT [facility] Blood Venous blood specimen / Unknown Venipuncture / Unknown 05/29/2025 9:34 AM EDT 05/29/2025 11:43 AM EDT us Kade Le MD LAB BLOOD ORDERABLES Final Result Performing Organization Address [facility]/ZIP Co de Phone Number [facility] [address] [place] [address], [place] [phone] * (ABNORMAL) Comprehensive metabolic panel (05/29/2025 9:34 AM EDT) Sodium 137 133 - 145 mmol/L LAB CHEMISTRY METHOD 05/29/2025 3:08 PM [facility] Potassium 4.4 3.5 - 5.5 mmol/L LAB CHEMISTRY METHOD 05/29/2025 3:08 PM [facility] Chloride 103 96 - 110 mmol/L LAB CHEMISTRY METHOD 05/29/2025 3:08 PM [facility] CO2 29 21 - 32 mmol/L LAB CHEMISTRY METHOD 05/29/2025 3:08 PM [facility] Anion Gap 5 3 - 11 LAB CHEMISTRY METHOD 05/29/2025 3:08 PM [facility] Glucose 115(H) 70 - 100 mg/dL LAB CHEMISTRY METHOD 05/29/2025 3:08 PM [facility] BUN 15 5 - 25 mg/dL LAB CHEMISTRY METHOD 05/29/2025 3:08 PM [facility] Creatinine 1.10 0.70 - 1.30 mg/dL LAB CHEMISTRY METHOD 05/29/2025 3:08 PM [facility] eGFR 84 >=60 mL/min/1. 73m2 LAB CHEMISTRY METHOD 05/29/2025 3:08 PM [facility] Comment:Calculation based on the Chronic Kidney Disease Epidemiology Collaboration (CKD-EPI) equation refit without adjustment for race. BUN/Creatinine Ratio 13.6 LAB CHEMISTRY METHOD 05/29/2025 3:08 PM [facility] Calcium 9.4 8.5 - 10.5 mg/dL LAB CHEMISTRY METHOD 05/29/2025 3:08 PM [facility] AST (SGOT) 14 10 - 42 unit/L LAB CHEMISTRY METHOD 05/29/2025 3:08 PM [facility] ALT (SGPT) 26 10 - 60 unit/L LAB CHEMISTRY METHOD 05/29/2025 3:08 PM EDT [facility] Alkaline Phosphatase 74 42 - 121 unit/L LAB CHEMISTRY METHOD 05/29/2025 3:08 PM EDT [facility] Total Protein 7.7 6.0 - 8.0 g/dL LAB CHEMISTRY METHOD 05/29/2025 3:08 PM EDT [facility] Albumin 4.3 3.2 - 5.0 g/dL LAB CHEMISTRY METHOD 05/29/2025 3:08 PM EDT [facility] Total Bilirubin 0.4 0.0 - 1.4 mg/dL LAB CHEMISTRY METHOD 05/29/2025 3:08 PM EDT [facility] Blood Venous blood specimen / Unknown Venipuncture / Unknown 05/29/2025 9:34 AM EDT 05/29/2025 11:43 AM EDT Kade Le MD LAB BLOOD ORDERABLES Final Result [facility] [address] [place] [address], * HM Urine Albumin Creatinine Ratio (07/05/2024) [facility] HM Urine Albumin Creatinine Ratio abstracted Historical Provider HEALTH MAINTENANCE Final Result * Hemoglobin A1c (07/05/2024) [facility] Hemoglobin A1C 5.5 <=6.5 % Blood Venous blood specimen / Unknown Historical Provider LAB BLOOD ORDERABLES Nadya l Result * (ABNORMAL) Lipid panel (07/05/2024) [facility] LDL/HDL Ratio 2 0 - 4 Triglycerides 169(A) 0 - 150 mg/dL Cholesterol 112 0 - 200 mg/dL HDL 52 >=40 mg/dL LDL Cholesterol 27 0 - 100 mg/dL Blood Venous blood specimen / Unknown Result [facility] Provider LAB BLOOD ORDERABLES Nadya l Result * Diabetes Eye Exam (07/04/2024) Pathologist [facility] Diabetes: Annual Retina Eye Exam abstracted Result [facility] Historical Provider HEALTH MAINTENANCE Final Result * Diabetes Foot Exam (04/26/2023) [facility] Diabetes: Annual Foot Exam abstracted Result [facility] Provider HEALTH MAINTENANCE Final Result * Colonoscopy (12/18/2020) Pathologist [facility] Colonoscopy no inperatati on,abstact ed Anatomical Region Laterality Modality Other Result [facility] Provider HEALTH MAINTENANCE Final Result * HIV Screening (04/15/2015) [facility] HIV Screening abstracted Result [facility] Provider HEALTH MAINTENANCE Final Result from Last 3 Months or Most Recently Relevant to Health Maintenance Insurance [employer] Care Teams Food Preparer Relationship Specialty Start Date End Date Earnest Dorado PA [address] [place] [address] [place] [address] PCP - General Internal Medicine 10/09/24
== END 2025-06-12 08:45 | disposition home or self-care (01) ==
LOC: HO.BBR 08:44
PROVIDERS: PCP Physician Assistant Medical; Visit Provider Internal Medicine Hematology & Oncology
DX: Z13.89 Encounter for screening for other disorder (principal)

== ENCOUNTER 2025-07-24 09:46 | Outpatient (REF) | payer OTHER, SELFPAY ==
--- OUTSIDE RECORDS SUMMARY | 2024-08-30 11:13 | XMS_ITS | Encounter Summary ---
Author Organization [facility] [place] [address] Care Team Providers Care Subway Conductor Name Role Phone Earnest Dorado Primary Care Provider [phone] Encounter Details Date Type Department Care Team (Late st Contact Info) Description 08/30/2024 11:13 AM EDT Hospital Encounter TH HISTORIC ENCOUNTERS EASTERN CONVERSION ONLY Kade Le MD [address] [place] [phone] Social History Tobacco Use Types Packs/Day Years Used Date Smoking Tobacco: Former Cigarettes Q uit: 11/10/2003 Smokeless Tobacco: Never Alcohol Use Standard Drinks/Week Comments Never 0.8 (1 standard drink = 0.6 oz p ure alcohol) Housing Instability Answer Date Recorde d Are you worried that in the next 2 months you may not have stable housing? No 07/18/2025 Food Access & Nutrition Answer Date Rec orded Do you have access to a vari ety of food including fruits and vegetables? Yes 07/18/2025 Health Literacy Answer Date Recorded How often do you need to hav e someone help you when you read instructions, pamphlets, or other written material from your doctor or pharmacy? Never 07/18/2025 Caregiver: How often do you need to have someone help you when you read instructions, pamphlets, or other written material from your doctor or pharmacy? Not on file 07/18/2025 Financial Risk Answer Date Recorded How hard is it for you to pa y for the very basics like food, housing, medical care, and air conditioning / heating? Not very hard 07/18/2025 Transportation Answer Date Recorded Has the lack of transportati on kept you from meetings, work, or from getting things needed for daily living? No 07/18/2025 Has the lack of transportati on kept you from medical appointments or from getting medications? Patient declined 07/18/2025 Social Isolation Answer Date Recorded How often do you feel lonely or isolated from th ose around you? Never 07/18/2025 Food Risk Answer Date Recorded Within the past 12 months we worried whether our food would run out before we got money to buy more. Never true 07/18/2025 Within the past 12 months th e food we bought just didn't last and we didn't have money to get more. Never true 07/18/2025 Dependent Care Answer Date Recorded Do you need help finding or paying for care for your loved ones. For example, child care lead teacher or elderly care for an older adult? Patient declined 07/18/2025 Education Answer Date Recorded Do you think completing more education or training, like finishing a GED, going to college, or learning a trade, would be helpful for you? Patient declined 07/18/2025 Employment and Income Answer Date Recor ded During the last four weeks, have you been actively looking for work? Patient declined 07/18/2025 Living Situation Answer Date Recorded What is your living situation? 0 07/18/2025 Interpersonal Safety Answer Date Record ed Physical Abuse 12/17/2024 Verbal Abuse 12/17/2024 Sex and Gender Information Value Date Recorded Sex Assigned at Male 12/17/2024 6:54 AM EST Legal Sex Male 6:11 PM EST Gender Identity Male 12/17/2024 6:54 AM EST Sexual Orientation Straight 12/17/2024 6: 54 AM EST documented as of this encounter Last Filed Vital Signs Vital Sign Reading Time Taken Comments Blood Pressure 133/84 08/30/2024 11:34 AM EDT Sitting Right arm Pulse 72 08/30/2024 11:34 AM EDT Temperature - - Respiratory Rate - - Oxygen Saturation - - Inhaled Oxygen Concentration - - Weight 73.5 kg (162 lb) 08/30/2024 11:3 4 AM EDT Height 172.7 cm (5' 8 ) 05/17/2023 2:33 PM EDT Body Mass Index 24.63 08/02/2024 10:23 AM EDT documented in this encounter Progress Notes * Kade Le MD - 08/30/2024 11:30 AM EDT Diagnosis/treatment: Hereditary hemochromatosis. History of present illness: The patient is a 43-year-old gentleman who is referred for management of hereditary hemochromatosis. LFTs on 01/25/2024 were normal. A percent transferrin saturation was elevated at 53. A ferritin was 265. 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 A CBC on 07/05/2024 showed WBC 8.0, hemoglobin 16.5 with MCV 90, and platelet count 296,000. A creatinine was 1.3. A calcium was 10.1. LFTs were normal. A percent transferrin saturation was 79. He denies awareness of any family history of hemochromatosis. He reports an excellent exercise tolerance. He denies cough, hemoptysis, dyspnea on exertion, or leg edema. He denies headaches or visual changes. He denies nausea. He reports chronic intermittent epigastricdiscomfort, mostly relieved by omeprazole. He denies unusual bone pain. He reports an intact appetite and stable weight. Past medical history: Diabetes, diabetic neuropathy, irritable bowel syndrome, hyperlipidemia lumbar radiculopathy. Current medications: Zoloft, omeprazole, insulin, Flonase, metformin, atorvastatin. Allergies: Erythromycin. Family history: His paternal grandmother was diagnosed with an uncertain type of cancer and in her 50s from that cancer. His father was diagnosed with bladder cancer in his early 60s and survived that diagnosis. His father reportedly tested positive for a germline BRCA mutation. His mother's medical history is unknown. His paternal uncle was diagnosed with pancreatic cancer and age 67 from that cancer.That paternal uncle reportedly tested positive for a germline BRCA mutation. 1 of 2 brothers was diagnosed with uncertain type of cancer in his mid 30s and survived that cancer and later in an MVA. There is no history of known hemochromatosis in his grandparents, parents, 2 brothers, son, or daughter. 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 He has 1 son and 1 daughter. He denies tobacco use. He smokes marijuana. He denies alcohol use. Review of systems: The remainder of a 10 point review of systems was unremarkable. Physical examination: HEENT: Sclerae anicteric, normal oropharyngeal membrane. Neck: No lymphadenopathy. Lungs: Clear to auscultation. Heart: No murmurs. Abdomen: Soft, nontender, no organomegaly or masses. Extremities: No edema. Skin: No rash. Neurologic: Normal gait. 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 He reports an excellent exercise tolerance. LFTs have been normal. I ordered a screening echocardiogram and liver MRI to evaluate for possible iron deposition. We will monitor iron studies and LFTs. We will start a phlebotomy regimen to keep the percent transferrin saturation and ferritin less than 50. His father and paternal uncle reportedly tested positive for germline BRCA genetic mutation. The patient states that he will also be tested. documented in this encounter Plan of Treatment Upcoming Encounters Date Type Department Care Team (Late st Contact Info) Description 08/28/2025 9:15 AM EDT Office Visit [facility] Hematology Oncology [address] [place] [id number] Kade Le MD [address] [place] [phone] documented as of this encounter Visit Diagnoses Not on filedocumented in this encounter Care Teams Subway Conductor Relationship Specialty Start Date End Date Earnest Dorado PA PCP - General Internal Medicine 02/23/21 10/08/24 documented as of this encounter
--- OUTSIDE RECORDS SUMMARY | 2025-07-18 10:51 | XMS_ITS | Encounter Summary ---
Author Organization [facility] [address] [place] [address] Care Team Providers Care Farm Helper Name Role Phone Earnest Dorado Primary Care Provider [phone] Encounter Details Date Type Department Care Team (Latest Contact Info) Description 07/18/2025 10:51 AM EDT - 07/18/2025 11:59 PM EDT Hospital Encounter [facility] [address] [place] [address] Shortness of breath Discharge Disposition: Home or Self Care Social [...] care for your loved ones. For example, early childhood education worker or elderly care for an older adult? [...] BY MOUTH DAILY 90 capsule 3 11/04/2024 ondansetron (ZOFRAN) 8 mg tablet Take 1 tablet (8 mg total) by mouth every 8 (eight) hours if needed for nausea or vomiting for up to 7 days. 20 tablet 07/18/2025 oxyCODONE-acetam inophen (PERCOCET) 5-325 mg per tablet Take 1 tablet by mouth every 8 (eight) hours if needed. 05/18/2023 pregabalin (LYRICA) 25 mg capsule Take 1 capsule (25 mg total) by mouth 2 (two) times a day. sertraline (ZOLOFT) 50 mg tablet TAKE 1/2 TABLET BY MOUTH DAILY FOR 1 WEEK, THEN INCREASE TO 1 TABLET DAILY 90 tablet 1 01/28/2025 documented as of this encounter Discharge Disposition Disposition Code Departure Means Destination Home or Self Care documented in this encounter Plan of Treatment Upcoming Encounters Date Type Department Care Team (Late st Contact Info) Description 08/28/2025 9:15 AM EDT Office Visit [facility] Hematology Oncology [address] [place] [phone] Kade Le MD [address] [place] [address] documented as of this encounter Procedures Procedure Name Priority Date/Time Associated Diagnosis Comments XR CHEST 2 VIEWS Routine 07/18/2025 10:5 5 AM EDT Shortness of breath documented in this encounter Results * XR Chest 2 Views (07/18/2025 10:55 AM EDT) Anatomical Region Laterality Modality Body Radiographic Baylee ging 07/18/2025 3:47 PM EDT Impressions 07/18/2025 3:48 PM EDT No acute cardiopulmonary process. -------- FINAL REPORT -------- Dictated By: Roderick Aiken Dictated Date: 07/18/2025 15:47 ET Assigned Physician: Roderick Aiken Reviewed and Electronically Signed By: Roderick Aiken Signed Date: 07/18/2025 15:48 ET Workstation ID: [id number] Transcribed By: Self Edit Transcribed Date: 07/18/2025 15:47 ET Narrative 07/18/2025 3:48 PM EDT HISTORY: pain dyspnea, chest wall pain TECHNIQUE: PA and lateral radiographs of the chest COMPARISON: None FINDINGS: There is a normal cardiomediastinal silhouette. The lungs are clear. The osseous structures are intact. Procedure Note Roderick Aiken MD - 07/18/2025 HISTORY: pain dyspnea, chest wall pain TECHNIQUE: PA and lateral radiographs of the chest COMPARISON: None FINDINGS: There is a normal cardiomediastinal silhouette. The lungs are clear. Theosseous structures are intact. IMPRESSION: No acute cardiopulmonary process. -------- FINAL REPORT -------- Dictated By: Roderick Aiken Dictated Date: 07/18/2025 15:47 ET Assigned Physician: Roderick Aiken Reviewed and Electronically Signed By: Roderick Aiken Signed Date: 07/18/2025 15:48 ET Workstation ID: [id number] Transcribed By: Self Edit Transcribed Date: 07/18/2025 15:47 ET us Danielle MOORE IMG XR PROCEDURES Final Result documented in this encounter Visit Diagnoses Diagnosis Shortness of breath documented in this encounter Additional Health Concerns Assessment Noted Time PHQ-9 Depression Total Score: 1 07/18/20 25 9:45 AM EDT documented as of this encounter Care Teams Farm Helper Relationship Specialty Start Date End Date Earnest Dorado PA [address] [place] [address] PCP - General Internal Medicine 10/09/24 documented as of this encounter
--- OUTSIDE RECORDS SUMMARY | 2025-07-24 11:33 | XMS_ITS | Clinical Summary ---
Author Organization [facility] [address] [place] [address] [place] [address] [place] [address] Phone Care Team Providers Care Learning Development Specialist Name Role Phone Earnest Dorado Primary Care Provider [phone] Allergies Active Allergy Reactions Criticality Noted Date [...] TABLET DAILY 90 tablet 1 5 Active pregabalin (LYRICA) 25 mg capsule Take 1 capsule (25 mg total) by mouth 2 (two) times a day. Active ondansetron (ZOFRAN) 8 mg tablet Take 1 tablet (8 mg total) by mouth every 8 (eight) hours if needed for nausea or vomiting for up to 7 days. 20 tablet 5 07/25/20 25 Active Active Problems Problem Noted Date Diagnosed Date Hereditary hemochromatosis ([facility] V24) 024 Lumbar radiculopathy 06/23/2023 Acute pancreatitis 05/04/2023 Overview (09/27/2024): [facility] History of 2019 novel coronavirus disease (COVID -19) 07/19/2022 Diabetes mellitus type 2 wit h neurological manifestations ([facility] V24, [facility] V28) 09/18/2020 Diabetic neuropathy ([facility] V24, [facility] V28) 1 11/18/2019 Deviated septum 11/21/2016 Umbilical hernia 11/21/2016 IBS (irritable bowel syndrome) 02/19/2013 Overview (09/27/2024): Diarrhea predominant, onset 2010. Post-op pain 02/10/2011 Dysuria 01/31/2011 Hyperlipidemia 08/06/2010 Acne 07/13/2010 Encounters Date Type Department Care Team Description 07/18/2025 10:51 AM EDT - 07/18/2025 11:59 PM EDT Hospital Encounter [facility] [address] [place], [place] [phone] Shortness of breath Discharge Disposition: Home or Self Care 07/18/2025 9:45 AM EDT Office Visit Adult [address] [phone] Danielle Sharp PA Epigastric pain (Primary Dx); Bloating; Queasiness; Early satiety; Umbilical hernia without obstruction and without gangrene; Diabetes mellitus type 2 with neurological manifestations ([facility] V24, [facility] V28); Shortness of breath; Anxiety and depression; Screening for depression; Encounter for screening involving social determinants of health (SDoH) 06/17/2025 10:18 AM EDT - 06/17/2025 11:59 PM EDT Hospital Encounter [facility] Pain Management [address] [place] [address] Jovanny Kennedy MD Radiculopathy, lumbar region Discharge Disposition: Home or Self Care 06/17/2025 7:55 AM EDT - 06/17/2025 11:59 PM EDT Hospital Encounter [facility] Xray [address] [place] [address] Pain Discharge Disposition: Home or Self Care 06/12/2025 Telephone [facility] Hematology Oncology [address] [place] [phone] Kade Le MD 05/29/2025 9:15 AM EDT Office Visit [facility] Hematology Oncology [address] [place] [phone] Kade Le MD Hereditary hemochromatosis ([facility] V24) (Primary Dx) from Last 3 Months [...] (HCC) Pancreatitis DX:Pancreatitis Depression Hard to intubate Left lumbar radiculopathy Family History Medical History Relation Name Comments [...] 11/10/2003 Smokeless Tobacco: Never Tobacco Cessation:Counseling Given: Not Answered Alcohol Use Standard Drinks/Week Comments Never 0.8 [...] your loved ones. For example, child care giver or elderly care for an older adult? [...] Sign Reading Time Taken Comments Blood Pressure 121/72 07/18/2025 9:45 AM EDT Pulse 66 07/18/2025 9:45 AM EDT Temperature 36.8 C (98.3 F) 07/18/2025 9:45 AM EDT Respiratory Rate 14 07/18/2025 9:45 AM EDT Oxygen Saturation 98% 07/18/2025 9:45 AM EDT Inhaled Oxygen Concentration - - Weight 76.5 kg (168 lb 9.6 oz) 07/18/2025 9:45 A M EDT Height 172.7 cm (5' 8 ) 07/18/2025 9:45 AM EDT Body Mass Index 25.64 07/18/2025 9:45 AM EDT Plan of Treatment Upcoming Encounters Date Type Department Care Team (Late st Contact Info) Description 08/28/2025 9:15 AM EDT Office Visit [facility] Hematology Oncology [address] [place] [phone] Kade Le MD [address] [place] [phone] Health Maintenance Due Date Last Done Comments Hepatitis B Vaccines (1 of 3 - 19+ 3-dose series) 1997 Pneumococcal Vaccine: Pediatrics (0 to 5 Years) and At-Risk Patients (6 to 49 Years) (2 of 2 - PCV) 03/27/2020 03/27/2019 Hepatitis C Screening 10/22/2022 Diabetes: Annual Foot Exam 04/26/2024 04/26/2023 Diabetes: Annual Retina Eye Exam 07/04/2025 07/04/2024 Diabetes: Annual Urine Albumin-Creatinine Ratio (uACR) 07/05/2025 07/05/2024 COVID-19 Vaccine ( season) 2025 Influenza Vaccine (#1) 2025 09/18/2020, 2016 Diabetes: Blood Sugar Control Test (HGBA1C) 01/15/2026 07/18/2025, 07/05/2024, 07/05/2024 Diabetes: Annual GFR (Glomerular Filtration Rate) 07/18/2026 07/18/2025, 05/29/2025, 02/28/2025, Additional history exists Social Influencers of Health Screening 07/18/2026 07/18/2025 Cholesterol Screening (Lipid Panel) 07/05/2029 07/05/2024, 07/05/2024 DTaP,Tdap,and Td Vaccines (3 - Td or Tdap) 09/18/2030 09/18/2020, 08/04/2010 Colorectal Cancer Screening: Colonoscopy 12/18/2030 12/18/2020 HIV Screening Completed 04/15/2015 Depression Screening Completed 07/18/2025 HIB Vaccines Aged Out No longer eligi [...] Diagnosis Comments CBC WITH AUTO DIFFERENTIAL Routine 07/18/2025 11:09 AM EDT Hereditary hemochromatosis (CMS/HCC V24) AMYLASE STAT 07/18/2025 11:09 AM EDT Epigastric pain LIPASE STAT 07/18/2025 11:09 AM EDT Epigastric pain HEPATIC FUNCTION PANEL Routine 07/18/2025 11:09 AM EDT Epigastric pain CBC AND DIFFERENTIAL Routine 07/18/2025 11:09 AM EDT Hereditary hemochromatosis (CMS/HCC V24) HEMOGLOBIN A1C Routine 07/18/2025 11:09 AM EDT Diabetes mellitus type 2 with neurological manifestations (CMS/HCC V24, CMS/HCC V28) BASIC METABOLIC PANEL Routine 07/18/2025 11:09 AM EDT Epigastric pain XR CHEST 2 VIEWS Routine 07/18/2025 10:5 5 AM EDT Shortness of breath ECG 12-LEAD Routine 07/18/2025 10:31 AM EDT Shortness of breath XR FLUORO UP TO 1 HOUR Routine 06/17/2025 11:05 AM EDT Pain CBC WITH AUTO DIFFERENTIAL Routine 05/29/2025 9:34 AM EDT Hereditary hemochromatosis (CMS/HCC V24) IRON AND TIBC Routine 05/29/2025 9:34 AM EDT Hereditary hemochromatosis (CMS/HCC V24) FERRITIN Routine 05/29/2025 9:34 AM EDT Hereditary hemochromatosis (CMS/HCC V24) CBC AND DIFFERENTIAL Routine 05/29/2025 9:34 AM EDT Hereditary hemochromatosis (CMS/HCC V24) COMPREHENSIVE METABOLIC PANEL Routine 05/29/2025 9:34 AM EDT Hereditary hemochromatosis (CMS/HCC V24) HM URINE ALBUMIN CREATININE RATIO Routine 07/05/2024 LIPID PANEL Routine 07/05/2024 DIABETES EYE EXAM Routine 07/04/2024 DIABETES FOOT EXAM Routine 04/26/2023 COLONOSCOPY Routine 12/18/2020 HIV SCREENING Routine 04/15/2015 from Last 3 Months or Most Recently Relevant to Health Maintenance Results * CBC auto differential (07/18/2025 11:09 AM EDT) Only the most recent of2 resultswithin the time period is included. WBC 7.6 4.8 - 10.8 K/mcL LAB HEMETOLOGY METHOD 07/18/2025 12:01 PM [facility] RBC 5.30 4.50 - 5.50 M/mcL LAB HEMETOLOGY METHOD 07/18/2025 12:01 PM [facility] Hemoglobin 14.7 13.5 - 17.5 g/dL LAB HEMETOLOGY METHOD 07/18/2025 12:01 PM [facility] Hematocrit 42.1 42.0 - 54.0 % LAB HEMETOLOGY METHOD 07/18/2025 12:01 PM [facility] MCV 80.2 79.0 - 98.0 FL LAB HEMETOLOGY METHOD 07/18/2025 12:01 PM [facility] MCH 28.0 27.0 - 32.0 pcg LAB HEMETOLOGY METHOD 07/18/2025 12:01 PM [facility] MCHC 34.9 32.0 - 37.0 g/dL LAB HEMETOLOGY METHOD 07/18/2025 12:01 PM [facility] RDW 12.8 11.0 - 15.0 % LAB HEMETOLOGY METHOD 07/18/2025 12:01 PM [facility] Platelets 317 130 - 400 K/mcL LAB HEMETOLOGY METHOD 07/18/2025 12:01 PM [facility] MPV 9.5 7.0 - 11.0 FL LAB HEMETOLOGY METHOD 07/18/2025 12:01 PM [facility] NRBC 0.0 <1.0 % LAB HEMETOLOGY METHOD 07/18/2025 12:01 [facility] NRBC Absolute 0.00 <0.10 K/mcL LAB HEMETOLOGY METHOD 07/18/2025 12:01 [facility] Neutrophils Relative 57.6 % LAB HEMETOLOGY METHOD 07/18/2025 12:01 [facility] Lymphocytes Relative 29.1 % LAB HEMETOLOGY METHOD 07/18/2025 12:01 [facility] Monocytes Relative 8.3 % LAB HEMETOLOGY METHOD 07/18/2025 12:01 [facility] Eosinophils Relative 3.7 % LAB HEMETOLOGY METHOD 07/18/2025 12:01 [facility] Basophils Relative 0.9 % LAB HEMETOLOGY METHOD 07/18/2025 12:01 [facility] Immature Granulocytes Relative 0.4 % LAB HEMETOLOGY METHOD 07/18/2025 12:01 [facility] Neutrophils Absolute 4.37 1.50 - 7.00 K/mcL LAB HEMETOLOGY METHOD 07/18/2025 12:01 [facility] Lymphocytes Absolute 2.21 1.00 - 5.00 K/mcL LAB HEMETOLOGY METHOD 07/18/2025 12:01 [facility] Monocytes Absolute 0.63 0.20 - 1.00 K/mcL LAB HEMETOLOGY METHOD 07/18/2025 12:01 PM EDT [facility] Eosinophils Absolute 0.28 0.00 - 0.50 K/[facility] LAB HEMETOLOGY METHOD 07/18/2025 12:01 PM EDT [facility] Basophils Absolute 0.07 0.00 - 0.20 K/[facility] LAB HEMETOLOGY METHOD 07/18/2025 12:01 PM EDT [facility] Immature Granulocytes Absolute 0.03 0.00 - 0.03 K/[facility] LAB HEMETOLOGY METHOD 07/18/2025 12:01 PM EDT [facility] Blood Venous blood specimen / Unknown Venipuncture / Unknown 07/18/2025 11:09 AM EDT 07/18/2025 11:09 AM EDT Kade Le MD LAB BLOOD ORDERABLES Final Result Performing Organization Address [facility]/ZIP Co de Phone Number [facility] [address] [place] [address], [place] [phone] * Lipase (07/18/2025 11:09 AM EDT) Pathologist [facility] Lipase 59 13 - 75 unit/L LAB CHEMISTRY METHOD 07/18/2025 12:16 PM EDT [facility] Blood Venous blood specimen / Unknown Venipuncture / Unknown 07/18/2025 11:09 AM EDT 07/18/2025 11:09 AM EDT Danielle MOORE LAB BLOOD ORDERABLES Final Resul t [facility] [address] [place] [address], [place] [phone] * Hemoglobin A1c (07/18/2025 11:09 AM EDT) Hemoglobin A1C 6.4 <6.5 % LAB CHEMISTRY METHOD 07/18/2025 2:01 PM EDT [facility] Mean Bld Glu Estim. 137 mg/dL LAB CHEMISTRY METHOD 07/18/2025 2:01 PM EDT [facility] Blood Venous blood specimen / Unknown Venipuncture / Unknown 07/18/2025 11:09 AM EDT 07/18/2025 11:09 AM EDT Jazmin MOORE LAB BLOOD ORDERABLES Final Resul t Performing Organization Address City/[facility]/ZIP Co de Phone Number [facility] [address] [place] [address], [place] [phone] * Amylase (07/18/2025 11:09 AM EDT) [facility] Amylase 73 25 - 115 unit/L LAB CHEMISTRY METHOD 07/18/2025 12:16 PM EDT [facility] Blood Venous blood specimen / Unknown Venipuncture / Unknown 07/18/2025 11:09 AM EDT 07/18/2025 11:09 AM EDT Danielle MOORE LAB BLOOD ORDERABLES Final Resul t Performing Organization Address [facility] de Phone Number [facility] [address] [place] [address], [place] [phone] * Hepatic function panel (07/18/2025 11:09 AM EDT) Total Protein 7.7 6.0 - 8.0 g/dL LAB CHEMISTRY METHOD 07/18/2025 5:07 PM EDT [facility] Albumin 4.5 3.2 - 5.0 g/dL LAB CHEMISTRY METHOD 07/18/2025 5:07 PM EDT [facility] Total Bilirubin 0.5 0.0 - 1.4 mg/dL LAB CHEMISTRY METHOD 07/18/2025 5:07 PM EDT [facility] Bilirubin, Direct <0.1 0.0 - 0.3 mg/dL LAB CHEMISTRY METHOD 07/18/2025 5:07 PM [facility] Bilirubin, Indirect LAB CHEMISTRY METHOD 07/18/2025 5:07 PM [facility] Comment:Unable to calculate Indirect Bilirubin. ALT (SGPT) 22 10 - 60 unit/L LAB CHEMISTRY METHOD 07/18/2025 5:[facility] AST (SGOT) 15 10 - 42 unit/L LAB CHEMISTRY METHOD 07/18/2025 5:07 PM [facility] Alkaline Phosphatase 93 42 - 121 unit/L LAB CHEMISTRY METHOD 07/18/2025 5:07 PM [facility] Blood Venous blood specimen / Unknown Venipuncture / Unknown 07/18/2025 11:09 AM EDT 07/18/2025 11:09 AM EDT us Danielle MOORE LAB BLOOD ORDERABLES Final Resul t [facility] [address] [place] [address], * (ABNORMAL) Basic metabolic panel (07/18/2025 11:09 AM EDT) Sodium 137 133 - 145 mmol/L LAB CHEMISTRY METHOD 07/18/2025 5:07 PM [facility] Potassium 4.1 3.5 - 5.5 mmol/L LAB CHEMISTRY METHOD 07/18/2025 5:07 PM [facility] Chloride 102 96 - 110 mmol/L LAB CHEMISTRY METHOD 07/18/2025 5:07 PM [facility] CO2 31 21 - 32 mmol/L LAB CHEMISTRY METHOD 07/18/2025 5:07 PM [facility] Anion Gap 4 3 - 11 LAB CHEMISTRY METHOD 07/18/2025 5:07 PM [facility] Glucose 135(H) 70 - 100 mg/dL LAB CHEMISTRY METHOD 07/18/2025 5:07 PM EDT [facility] BUN 14 5 - 25 mg/dL LAB CHEMISTRY METHOD 07/18/2025 5:07 PM EDT [facility] Creatinine 1.21 0.70 - 1.30 mg/dL LAB CHEMISTRY METHOD 07/18/2025 5:07 PM EDT [facility] eGFR 75 >=60 mL/min/1. 73m2 LAB CHEMISTRY METHOD 07/18/2025 5:07 PM EDT [facility] Comment:Calculation based on the Chronic Kidney Disease Epidemiology Collaboration (CKD-EPI) equation refit without adjustment for race. BUN/Creatinine Ratio 11.6 LAB CHEMISTRY METHOD 07/18/2025 5:07 PM EDT [facility] Calcium 10.1 8.5 - 10.5 mg/dL LAB CHEMISTRY METHOD 07/18/2025 5:07 PM EDT [facility] Blood Venous blood specimen / Unknown Venipuncture / Unknown 07/18/2025 11:09 AM EDT 07/18/2025 11:09 AM EDT Danielle MOORE LAB BLOOD ORDERABLES Final Resul t [facility] [address] [place] [address], * XR Chest 2 Views (07/18/2025 10:55 AM EDT) Anatomical Region Laterality Modality Body Radiographic Baylee ging 07/18/2025 3:47 PM EDT Impressions 07/18/2025 3:48 PM EDT No acute cardiopulmonary process. -------- FINAL REPORT -------- Dictated By: Roderick Aiken Dictated Date: 07/18/2025 15:47 ET Assigned Physician: Roderick Aiken Reviewed and Electronically Signed By: Roderick Aiken Signed Date: 07/18/2025 15:48 ET Workstation ID: [id number] Transcribed By: Self Edit Transcribed Date: 07/18/2025 [...] Signed Date: 07/18/2025 15:48 ET Workstation ID: [id number] Transcribed By: Self Edit Transcribed Date: 07/18/2025 15:47 ET us Danielle MOORE IMG XR PROCEDURES Final Result * ECG 12 lead (07/18/2025 10:31 AM EDT) 07/18/2025 10:3 1 AM EDT Impressions Wilda Warner MA - 07/18/2025 10:31 AM EDT EKG: Sinus rhythm. 66 bpm. Early repolarization pattern. Overall stable compared to previous tracing from 05/02/2023. us Danielle MOORE ECG ORDERABLES Edited Result - Final * XR Fluoro Up To 1 Hour (06/17/2025 11:05 AM EDT) Anatomical Region Laterality Modality Body Radio Fluoroscop y 06/17/2025 11:4 3 AM EDT Narrative 06/17/2025 11:44 AM EDT Fluoroscopic spot radiographs obtained during lower lumbar spine injection are submitted. No radiologist consultation was requested or provided during this procedure and there is no radiologist professional charge. This report is generated for documentation purposes only. The dose for this procedure was 6.81 mGy. PQRI CPT II G9500 -------- FINAL REPORT -------- Dictated By: Arslan Collins Dictated Date: 06/17/2025 11:43 ET Assigned Physician: Arslan Collins Reviewed and Electronically Signed By: Arslan Collins Signed Date: 06/17/2025 11:44 ET Workstation ID: [id number] Transcribed By: Self Edit Transcribed Date: 06/17/2025 11:43 ET Procedure Note Arslan Collins MD - 06/17/2025 Fluoroscopic spot radiographs obtained during lower lumbar spine injectionare submitted. No radiologist consultation was requested or providedduring this procedure and there is no radiologist professional charge.This report is generated for documentation purposes only. The dose for this procedure was 6.81 mGy. PQRI CPT II G9500 -------- FINAL REPORT -------- Dictated By: Arslan Collins Dictated Date: 06/17/2025 11:43 ET Assigned Physician: Arslan Collins Reviewed and Electronically Signed By: Arslan Collins Signed Date: 06/17/2025 11:44 ET Workstation ID: [id number] Transcribed By: Self Edit Transcribed Date: 06/17/2025 11:43 ET us Jovanny Kennedy MD IM FLUOROSCOPY PROCEDURES Fin al Result * (ABNORMAL) Iron and TIBC (05/29/2025 9:34 AM EDT) Iron 48(L) 50 - 160 mcg/dL LAB CHEMISTRY METHOD 05/29/2025 3:08 PM EDT [facility] TIBC 363 250 - 450 mcg/dL LAB CHEMISTRY METHOD 05/29/2025 3:08 PM EDT [facility] Iron Saturation 13(L) 20 - 50 % LAB CHEMISTRY METHOD 05/29/2025 3:08 PM EDT [facility] Blood Venous blood specimen / Unknown Venipuncture / Unknown 05/29/2025 9:34 AM EDT 05/29/2025 11:43 AM EDT Kade Le MD LAB BLOOD ORDERABLES Final Result Performing Organization Address [facility]/ZIP Co de Phone Number [facility] [address] [place] [address], [place] [phone] * (ABNORMAL) Ferritin (05/29/2025 9:34 AM EDT) Pathologist [facility] Ferritin 10(L) 26 - 388 ng/mL LAB CHEMISTRY METHOD 05/29/2025 3:08 PM EDT [facility] Blood Venous blood specimen / Unknown Venipuncture / Unknown 05/29/2025 9:34 AM EDT 05/29/2025 11:43 AM EDT Kade Le MD LAB BLOOD ORDERABLES Final Result Performing Organization Address [facility] Co de Phone Number [facility] [address] [place] [address], [place] [phone] * (ABNORMAL) Comprehensive metabolic panel (05/29/2025 9:34 AM EDT) Pathologist [facility] Sodium 137 133 - 145 mmol/L LAB CHEMISTRY METHOD 05/29/2025 3:08 PM EDT [facility] Potassium 4.4 3.5 - 5.5 mmol/L LAB CHEMISTRY METHOD 05/29/2025 3:08 PM EDT [facility] Chloride 103 96 - 110 mmol/L LAB CHEMISTRY METHOD 05/29/2025 3:08 PM EDT [facility] CO2 29 21 - 32 mmol/L LAB CHEMISTRY METHOD 05/29/2025 3:08 PM EDT [facility] Anion Gap 5 3 - 11 LAB CHEMISTRY METHOD 05/29/2025 3:08 PM [facility] Glucose 115(H) 70 - 100 mg/dL LAB CHEMISTRY METHOD 05/29/2025 3:08 PM [facility] BUN 15 5 - 25 mg/dL LAB CHEMISTRY METHOD 05/29/2025 3:08 PM [facility] Creatinine 1.10 0.70 - 1.30 mg/dL LAB CHEMISTRY METHOD 05/29/2025 3:08 PM [facility] eGFR 84 >=60 mL/min/1. 73m2 LAB CHEMISTRY METHOD 05/29/2025 3:08 PM [facility] Comment:Calculation based on the Chronic Kidney Disease Epidemiology Collaboration (CKD-EPI) equation refit without adjustment for race. BUN/Creatinine Ratio 13.6 LAB CHEMISTRY METHOD 05/29/2025 3:08 PM [facility] Calcium 9.4 8.5 - 10.5 mg/dL LAB CHEMISTRY METHOD 05/29/2025 3:08 PM [facility] AST (SGOT) 14 10 - 42 unit/L LAB CHEMISTRY METHOD 05/29/2025 3:08 PM [facility] ALT (SGPT) 26 10 - 60 unit/L LAB CHEMISTRY METHOD 05/29/2025 3:08 PM [facility] Alkaline Phosphatase 74 42 - 121 unit/L LAB CHEMISTRY METHOD 05/29/2025 3:08 PM [facility] Total Protein 7.7 6.0 - 8.0 g/dL LAB CHEMISTRY METHOD 05/29/2025 3:08 PM [facility] Albumin 4.3 3.2 - 5.0 g/dL LAB CHEMISTRY METHOD 05/29/2025 3:08 PM [facility] Total Bilirubin 0.4 0.0 - 1.4 mg/dL LAB CHEMISTRY METHOD 05/29/2025 3:08 PM EDT [facility] Blood Venous blood specimen / Unknown Venipuncture / Unknown 05/29/2025 9:34 AM EDT 05/29/2025 11:43 AM EDT Result [facility] Kade Le MD LAB BLOOD ORDERABLES Final Result [facility] [address] [place] [address], [place] [phone] * Urine Albumin Creatinine Ratio (07/05/2024) [facility] Urine Albumin Creatinine Ratio abstracted Result [facility] Provider HEALTH MAINTENANCE Final Result * (ABNORMAL) Lipid panel (07/05/2024) [facility] LDL/HDL Ratio 2 0 - 4 Triglycerides 169(A) 0 - 150 mg/dL Cholesterol 112 0 - 200 mg/dL HDL 52 >=40 mg/dL LDL Cholesterol 27 0 - 100 mg/dL Blood Venous blood specimen / Unknown Result [facility] Licha PALMER LAB BLOOD ORDERABLES Nadya l Result * Diabetes Eye Exam (07/04/2024) [facility] Diabetes: Annual Retina Eye Exam abstracted Result [facility] Historical Provider HEALTH MAINTENANCE Final Result * Diabetes Foot Exam (04/26/2023) [facility] Diabetes: Annual Foot Exam abstracted Result [facility] Historical Provider HEALTH MAINTENANCE Final Result * Colonoscopy (12/18/2020) [facility] Colonoscopy no inperatati on,abstact ed Anatomical Region Laterality Modality Other Result [facility] Historical Provider HEALTH MAINTENANCE Final Result * HIV Screening (04/15/2015) [facility] HIV Screening abstracted Result [facility] Historical Licha PALMER HEALTH MAINTENANCE Final Result from Last 3 Months or Most Recently Relevant to Health Maintenance Insurance [employer] Care Teams Learning Development Specialist Relationship Specialty Start Date End Date Earnest Dorado PA [address] [facility] [place] [id number] PCP - General Internal Medicine 10/09/24
--- OUTSIDE RECORDS SUMMARY | 2025-07-24 11:33 | XMS_ITS | Clinical Summary ---
Author Organization [facility] Address [address] [place], [place] [id number] Care Team Providers Care Atomic Spectroscopist Name Role Phone Earnest Dorado PA-C Primary [...] age to complete this topic Care Teams Atomic Spectroscopist Relationship Specialty Start Date End Date Earnest Dorado, [facility] PCP - General Medical Services 07/09/24
== END 2025-07-24 09:47 | disposition home or self-care (01) ==
LOC: HO.BBR 09:46
PROVIDERS: PCP Physician Assistant Medical; Visit Provider Internal Medicine Hematology & Oncology
DX: Z13.89 Encounter for screening for other disorder (principal)

== ENCOUNTER 2025-09-04 10:06 | Outpatient (REF) | payer OTHER, SELFPAY ==
--- OUTSIDE RECORDS SUMMARY | 2024-08-30 11:13 | XMS_ITS | Encounter Summary ---
Author Organization [facility] [place] [address] Care Team Providers Care Hvac Sheet Metal Installer Name Role Phone Earnest Dorado Primary Care Provider [phone] Encounter Details Date Type Department Care Team (Late st Contact Info) Description 08/30/2024 11:13 AM EDT Hospital Encounter TH HISTORIC ENCOUNTERS EASTERN CONVERSION ONLY Kade Le MD [address] [place] [phone] Social History Tobacco Use Types Packs/Day [...] your loved ones. For example, child care associate or elderly care for an older adult? [...] Date Recorded What is your living situation? Unrecognized valu e 07/18/2025 Interpersonal Safety Answer Date Record ed Physical Abuse Unrecognized value 12/17/2024 Verbal Abuse Unrecognized value 12/17/2024 Sex and Gender Information Value Date [...] daughter. 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 He has 1 son [...] Care Team (Late st Contact Info) Description 09/18/2025 8:45 AM EST Office Visit Adult [address] [phone] Earnest Dorado PA [address] [place] [phone] 11/27/2025 10:45 AM EST Office Visit [facility] Hematology Oncology [address] [place] [phone] Kade Le MD [address] [place] [phone] documented as of this encounter Visit Diagnoses Not on filedocumented in this encounter Care Teams Hvac Sheet Metal Installer Relationship Specialty Start Date End Date Earnest Dorado PA PCP - General Internal Medicine 02/23/21 10/08/24 documented as of this encounter
--- OUTSIDE RECORDS SUMMARY | 2025-09-04 11:53 | XMS_ITS | Clinical Summary ---
Author Organization [facility] [address] [place] [address] [place] [address] [place] [address] Phone Care Team Providers Care Toxicology Teacher Name Role Phone Earnest Dorado Primary Care Provider [phone] Allergies Active Allergy Reactions Criticality Noted Date Comments Erythromycin Swelling High 06/07/2021 Swollen eyes Medications atorvastatin (LIPITOR) 80 mg tablet Take 1 tablet (80 mg total) by mouth 1 (one) time each day. 09/06/20 24 Active oxyCODONE-acet aminophen (PERCOCET) 5-325 mg [...] 90 capsule 3 11/04/20 24 Active insulin aspart, niacinamide, (Fiasp FlexTouch U-100 Insulin) 100 unit/mL (3 mL) injection pen Inject 4-6 Units under the skin 3 (three) times a day before meals. 15 mL 2 11/29/19 25 Active blood-glucose sensor (FreeStyle Jamil 3 Plus Sensor) deviceIndicati ons:Jamil 3 not available Box = Kit = EA. Use 1 sensor every 2 weeks. 6 each 2 11/29/19 25 Active pregabalin (LYRICA) 25 mg capsule Take 1 capsule (25 mg total) by mouth 2 (two) times a day. Active fluticasone propionate (FLONASE) 50 mcg/actuation nasal spray SHAKE LIQUID AND USE 2 SPRAYS IN EACH NOSTRIL DAILY 48 g 1 07/28/20 25 Active sertraline (ZOLOFT) 50 mg tablet TAKE 1/2 TABLET BY MOUTH DAILY FOR 1 WEEK, THEN INCREASE TO 1 TABLET DAILY 90 tablet 1 07/28/20 25 Active insulin glargine,hum.r ec.anlog (Basaglar KwikPen U-100 Insulin) 100 unit/mL (3 mL) injection pen ADMINISTER 26 UNITS UNDER THE SKIN 1 TIME EACH DAY 15 mL 1 08/14/20 25 Active insulin glargine,hum.r ec.anlog (Basaglar KwikPen U-100 Insulin) 100 unit/mL (3 mL) injection pen Inject 26 Units under the skin 1 (one) time each day. 15 mL 2 11/29/19 25 025 Discontinued metFORMIN XR (GLUCOPHAGE-XR ) 500 mg 24 hr tablet TAKE 2 TABLETS BY MOUTH TWICE DAILY WITH FOOD 360 tablet 1 12/09/19 25 025 Discontinued Active Problems Problem Noted Date Diagnosed Date Hereditary hemochromatosis ([facility] V24) 024 Lumbar radiculopathy 06/23/2023 Acute pancreatitis 05/04/2023 Overview (09/27/2024): [facility] History of 2019 novel coronavirus disease (COVID -19) 07/19/2022 Diabetes mellitus type 2 wit h neurological manifestations ([facility] V24, [facility] V28) 09/18/2020 Diabetic neuropathy ([facility] V24, [facility] V28) 1 11/18/2019 Deviated septum 11/21/2016 Umbilical hernia 11/21/2016 IBS (irritable bowel syndrome) 02/19/2013 Overview (09/27/2024): Diarrhea predominant, onset 2010. Post-op pain 02/10/2011 Dysuria 01/31/2011 Hyperlipidemia 08/06/2010 Acne 07/13/2010 Encounters Date Type Department Care Team Description 08/28/2025 10:30 AM EDT Office Visit Endocrinology [address], [place] [phone] Jazmin Valera PA Diabetes mellitus type 2 with neurological manifestations ([facility] V24, [facility] V28) (Primary Dx); Hyperlipidemia, unspecified hyperlipidemia type 08/28/2025 9:15 AM EDT Office Visit [facility] Hematology Oncology [address] [place] [phone] Kade Le MD Hereditary hemochromatosis ([facility] V24) (Primary Dx) 07/18/2025 10:51 AM EDT - 07/18/2025 11:59 PM EDT Hospital Encounter [address] [phone] Shortness of breath Discharge Disposition: Home or Self Care 07/18/2025 9:45 AM EDT Office Visit Adult Medicine [address] [phone] Danielle Sharp PA Epigastric pain (Primary Dx); Bloating; Queasiness; Early satiety; Umbilical hernia without obstruction and without gangrene; Diabetes mellitus type 2 with neurological manifestations ([facility] V24, [facility] V28); Shortness of breath; Anxiety and depression; Screening for depression; Encounter for screening involving social determinants of health (SDoH) 06/17/2025 10:18 AM EDT - 06/17/2025 11:59 PM EDT Hospital Encounter [facility] Pain Management [address] [place] [phone] Jovanny Kennedy MD Radiculopathy, lumbar region Discharge Disposition: Home or Self Care 06/17/2025 7:55 AM EDT - 06/17/2025 11:59 PM EDT Hospital Encounter [facility] Xray [address] [place] [phone] Pain Discharge Disposition: Home or Self Care 06/12/2025 Telephone [facility] Hematology Oncology [address] [place] [phone] Kade Le MD from Last 3 Months Immunizations Immunization Administration Dates Next Due Influenza Quadravalent, MDCK [...] care for your loved ones. For example, vocational childcare teacher or elderly care for an older [...] Sign Reading Time Taken Comments Blood Pressure 123/77 08/28/2025 10:21 AM EDT Pulse 79 08/28/2025 10:21 AM EDT Temperature 36.2 C (97.1 F) 08/28/2025 9:24 AM EDT Respiratory Rate 13 08/28/2025 10:21 AM EDT Oxygen Saturation 98% 08/28/2025 9:24 AM EDT Inhaled Oxygen Concentration - - Weight 78.5 kg (173 lb) 08/28/2025 10:21 AM EDT Height 172.7 cm (5' 8 ) 08/28/2025 10:21 AM EDT Body Mass Index 26.3 08/28/2025 10:21 AM EDT Plan of Treatment Upcoming Encounters Date Type Department Care Team (Late st Contact Info) Description 09/18/2025 8:45 AM EST Office Visit Adult Medicine [address] [phone] Earnest Dorado PA [address] [place] [phone] 11/27/2025 10:45 AM EST Office Visit [facility] Hematology Oncology [address] [place] [phone] Kade Le MD [address] [place] [phone] Health Maintenance Due Date Last [...] 08/04/2010 Colorectal Cancer Screening: Colonoscopy 12/18/2030 12/18/2020 RSV Immunization Adult Patients (1 - 1-dose 75+ series) 2053 HIV Screening Completed 04/15/2015 Depression Screening Completed [...] Diagnosis Comments CBC WITH AUTO DIFFERENTIAL Routine 08/28/2025 9:48 AM EDT Hereditary hemochromatosis ([facility] V24) IRON AND TIBC Routine 08/28/2025 9:48 AM EDT Hereditary hemochromatosis ([facility] V24) FERRITIN Routine 08/28/2025 9:48 AM EDT Hereditary hemochromatosis ([facility] V24) CBC AND DIFFERENTIAL Routine 08/28/2025 9:48 AM EDT Hereditary hemochromatosis ([facility] V24) CBC WITH AUTO DIFFERENTIAL Routine 07/18/2025 11:09 AM EDT Hereditary hemochromatosis ([facility] V24) AMYLASE STAT 07/18/2025 11:09 AM EDT Epigastric pain LIPASE STAT 07/18/2025 11:09 AM EDT Epigastric pain HEPATIC FUNCTION PANEL Routine 07/18/2025 11:09 AM EDT Epigastric pain CBC AND DIFFERENTIAL Routine 07/18/2025 11:09 AM EDT Hereditary hemochromatosis ([facility]CC V24) HEMOGLOBIN A1C Routine 07/18/2025 11:09 AM [...] HOUR Routine 06/17/2025 11:05 AM EDT Pain HM URINE ALBUMIN CREATININE RATIO Routine 07/05/2024 LIPID PANEL Routine 07/05/2024 DIABETES EYE EXAM Routine 07/04/2024 DIABETES FOOT EXAM Routine 04/26/2023 COLONOSCOPY Routine 12/18/2020 HIV SCREENING Routine 04/15/2015 from Last 3 Months or Most Recently Relevant to Health Maintenance Results * (ABNORMAL) CBC auto differential (08/28/2025 9:48 AM EDT) Only the most recent of2 resultswithin the time period is included. WBC 8.1 4.8 - 10.8 K/mcL LAB HEMETOLOGY METHOD 08/28/2025 12:50 PM EDT [facility] RBC 5.00 4.50 - 5.50 M/[facility] LAB HEMETOLOGY METHOD 08/28/2025 12:50 PM EDT [facility] Hemoglobin 13.3(L) 13.5 - 17.5 g/dL LAB HEMETOLOGY METHOD 08/28/2025 12:50 PM EDT [facility] Hematocrit 39.6(L) 42.0 - 54.0 % LAB HEMETOLOGY METHOD 08/28/2025 12:50 PM EDT [facility] MCV 78.6(L) 79.0 - 98.0 FL LAB HEMETOLOGY METHOD 08/28/2025 12:50 PM EDT [facility] MCH 26.4(L) 27.0 - 32.0 pcg LAB HEMETOLOGY METHOD 08/28/2025 12:50 PM EDT [facility] MCHC 33.6 32.0 - 37.0 g/dL LAB HEMETOLOGY METHOD 08/28/2025 12:50 PM EDT [facility] RDW 14.0 11.0 - 15.0 % LAB HEMETOLOGY METHOD 08/28/2025 12:50 PM EDT [facility] Platelets 351 130 - 400 K/mcL LAB HEMETOLOGY METHOD 08/28/2025 12:50 PM EDT [facility] MPV 9.3 7.0 - 11.0 FL LAB HEMETOLOGY METHOD 08/28/2025 12:50 PM EDT [facility] NRBC 0.0 <1.0 % LAB HEMETOLOGY METHOD 08/28/2025 12:50 PM EDT [facility] NRBC Absolute 0.00 <0.10 K/mcL LAB HEMETOLOGY METHOD 08/28/2025 12:50 PM EDT [facility] Neutrophils Relative 60.5 % LAB HEMETOLOGY METHOD 08/28/2025 12:50 PM EDT [facility] Lymphocytes Relative 26.9 % LAB HEMETOLOGY METHOD 08/28/2025 12:50 PM EDT [facility] Monocytes Relative 7.3 % LAB HEMETOLOGY METHOD 08/28/2025 12:50 PM EDT [facility] Eosinophils Relative 3.8 % LAB HEMETOLOGY METHOD 08/28/2025 12:50 PM EDT [facility] Basophils Relative 1.1 % LAB HEMETOLOGY METHOD 08/28/2025 12:50 PM EDT [facility] Immature Granulocytes Relative 0.4 % LAB HEMETOLOGY METHOD 08/28/2025 12:50 PM EDT [facility] Neutrophils Absolute 4.92 1.50 - 7.00 K/mcL LAB HEMETOLOGY METHOD 08/28/2025 12:50 PM EDT [facility] Lymphocytes Absolute 2.19 1.00 - 5.00 K/mcL LAB HEMETOLOGY METHOD 08/28/2025 12:50 PM EDT [facility] Monocytes Absolute 0.59 0.20 - 1.00 K/mcL LAB HEMETOLOGY METHOD 08/28/2025 12:50 PM EDT [facility] Eosinophils Absolute 0.31 0.00 - 0.50 K/mcL LAB HEMETOLOGY METHOD 08/28/2025 12:50 PM EDT [facility] Basophils Absolute 0.09 0.00 - 0.20 K/mcL LAB HEMETOLOGY METHOD 08/28/2025 12:50 PM EDT [facility] Immature Granulocytes Absolute 0.03 0.00 - 0.03 K/mcL LAB HEMETOLOGY METHOD 08/28/2025 12:50 PM EDT [facility] Blood Venous blood specimen / Unknown Venipuncture / Unknown 08/28/2025 9:48 AM EDT 08/28/2025 12:10 PM EDT us Kade Le MD LAB BLOOD ORDERABLES Final Result [facility] [address] [place] [address], * (ABNORMAL) Iron and TIBC (08/28/2025 9:48 AM EDT) Iron 43(L) 50 - 160 mcg/dL LAB CHEMISTRY METHOD 08/28/2025 1:02 PM EDT [facility] TIBC 386 250 - 450 mcg/dL LAB CHEMISTRY METHOD 08/28/2025 1:02 PM EDT [facility] Iron Saturation 11(L) 20 - 50 % LAB CHEMISTRY METHOD 08/28/2025 1:02 PM EDT [facility] Blood Venous blood specimen / Unknown Venipuncture / Unknown 08/28/2025 9:48 AM EDT 08/28/2025 12:10 PM EDT Kade Le MD LAB BLOOD ORDERABLES Final Result Performing Organization Address City/[facility]/ZIP Co de Phone Number [facility] [address] [place] [address], [place] [phone] * (ABNORMAL) Ferritin (08/28/2025 9:48 AM EDT) Ferritin 8(L) 26 - 388 ng/mL LAB CHEMISTRY METHOD 08/28/2025 1:05 PM EDT [facility] Blood Venous blood specimen / Unknown Venipuncture / Unknown 08/28/2025 9:48 AM EDT 08/28/2025 12:10 PM EDT us Kade Le MD LAB BLOOD ORDERABLES Final Result [facility] [address] [place] [address], [place] [phone] * Lipase (07/18/2025 11:09 AM EDT) Lipase 59 13 - 75 unit/L LAB CHEMISTRY METHOD 07/18/2025 12:16 PM EDT [facility] Blood Venous blood specimen / Unknown Venipuncture / Unknown 07/18/2025 11:09 AM EDT 07/18/2025 11:09 AM EDT us Danielle MOORE LAB BLOOD ORDERABLES Final Resul t Performing Organization Address [facility]/ZIP Co de Phone Number [facility] [address] [place] [address], [place] [phone] * Hemoglobin A1c (07/18/2025 11:09 AM EDT) Pathologist [facility] Hemoglobin A1C 6.4 <6.5 % LAB CHEMISTRY METHOD 07/18/2025 2:01 PM EDT [facility] Mean Bld Glu Estim. 137 mg/dL LAB CHEMISTRY METHOD 07/18/2025 2:01 PM EDT [facility] Blood Venous blood specimen / Unknown Venipuncture / Unknown 07/18/2025 11:09 AM EDT 07/18/2025 11:09 AM EDT Jazmin MOORE LAB BLOOD ORDERABLES Final Resul t Performing Organization Address [facility] Co de Phone Number [facility] [address] [place] [address], [place] [phone] * Amylase (07/18/2025 11:09 AM EDT) [facility] Amylase 73 25 - 115 unit/L LAB CHEMISTRY METHOD 07/18/2025 12:16 PM EDT [facility] Blood Venous blood specimen / Unknown Venipuncture / Unknown 07/18/2025 11:09 AM EDT 07/18/2025 11:09 AM EDT us Danielle MOORE LAB BLOOD ORDERABLES Final Resul t Performing Organization Address City/[facility]/ZIP Co de Phone Number [facility] [address] [place] [address], [place] [phone] * Hepatic function panel (07/18/2025 11:09 AM EDT) Pathologist [facility] Total Protein 7.7 6.0 - 8.0 g/dL LAB CHEMISTRY [facility] Albumin 4.5 3.2 - 5.0 g/dL LAB CHEMISTRY METHOD 07/18/2025 5:07 PM [facility] Total Bilirubin 0.5 0.0 - 1.4 mg/dL LAB CHEMISTRY METHOD 07/18/2025 5:07 PM [facility] Bilirubin, Direct <0.1 0.0 - 0.3 mg/dL LAB CHEMISTRY METHOD 07/18/2025 5:07 PM [facility] Bilirubin, Indirect LAB CHEMISTRY METHOD 07/18/2025 5:07 PM [facility] Comment:Unable to calculate Indirect Bilirubin. ALT (SGPT) 22 10 - 60 unit/L LAB CHEMISTRY METHOD 07/18/2025 5:07 PM [facility] AST (SGOT) 15 10 - 42 unit/L LAB CHEMISTRY METHOD 07/18/2025 5:07 PM [facility] Alkaline Phosphatase 93 42 - 121 unit/L LAB CHEMISTRY METHOD 07/18/2025 5:07 PM [facility] Blood Venous blood specimen / Unknown Venipuncture / Unknown 07/18/2025 11:09 AM EDT 07/18/2025 11:09 AM EDT Danielle MOORE LAB BLOOD ORDERABLES Final Resul t [facility] [address] [place] [address], * (ABNORMAL) Basic metabolic panel (07/18/2025 11:09 AM EDT) Sodium 137 133 - 145 mmol/L LAB CHEMISTRY METHOD 07/18/2025 5:07 PM [facility] Potassium 4.1 3.5 - 5.5 mmol/L LAB CHEMISTRY METHOD 07/18/2025 5:07 PM [facility] Chloride 102 96 - 110 mmol/L LAB CHEMISTRY METHOD 07/18/2025 5:07 PM [facility] CO2 31 21 - 32 mmol/L LAB CHEMISTRY METHOD 07/18/2025 5:07 PM [facility] Anion Gap 4 3 - 11 LAB CHEMISTRY METHOD 07/18/2025 5:07 PM [facility] Glucose 135(H) 70 - 100 mg/dL LAB CHEMISTRY METHOD 07/18/2025 5:07 PM [facility] BUN 14 5 - 25 mg/dL LAB CHEMISTRY METHOD 07/18/2025 5:07 PM [facility] Creatinine 1.21 0.70 - 1.30 mg/dL LAB CHEMISTRY METHOD 07/18/2025 5:07 PM [facility] eGFR 75 >=60 mL/min/1. 73m2 LAB CHEMISTRY METHOD 07/18/2025 5:07 PM [facility] Comment:Calculation based on the Chronic Kidney Disease Epidemiology Collaboration (CKD-EPI) equation refit without adjustment for race. BUN/Creatinine Ratio 11.6 LAB CHEMISTRY METHOD 07/18/2025 5:07 PM [facility] Calcium 10.1 8.5 - 10.5 mg/dL LAB CHEMISTRY METHOD 07/18/2025 5:07 PM [facility] Blood Venous blood specimen / Unknown Venipuncture / Unknown 07/18/2025 11:09 AM EDT 07/18/2025 11:09 AM EDT us Danielle MOORE LAB BLOOD ORDERABLES Final Resul t [facility] [address] [place] [address], * XR Chest 2 Views (07/18/2025 10:55 AM EDT) Anatomical Region Laterality Modality Body Radiographic Baylee ging 07/18/2025 3:47 PM EDT Impressions 07/18/2025 3:48 PM EDT No acute cardiopulmonary process. -------- FINAL REPORT -------- Dictated By: Roderick Aiken Dictated Date: 07/18/2025 15:47 ET Assigned Physician: Roderick Aiken Reviewed and Electronically Signed By: Roderick Aiken Signed Date: 07/18/2025 15:48 ET Workstation ID: [id number] Transcribed By: Self Edit Transcribed Date: 07/18/2025 [...] Signed Date: 07/18/2025 15:48 ET Workstation ID: [id number] Transcribed By: Self Edit Transcribed Date: 07/18/2025 15:47 ET us Danielle MOORE IMG XR PROCEDURES Final Result * ECG 12 lead (07/18/2025 10:31 AM EDT) 07/18/2025 10:3 1 AM EDT Impressions Wilda Warner MA - 07/18/2025 10:31 AM EDT EKG: Sinus rhythm. 66 bpm. Early repolarization pattern. Overall stable compared to previous tracing from 05/02/2023. Danielle MOORE ECG ORDERABLES Edited Result - [...] Signed Date: 06/17/2025 11:44 ET Workstation ID: [id number] Transcribed By: Self Edit Transcribed Date: 06/17/2025 [...] Signed Date: 06/17/2025 11:44 ET Workstation ID: [id number] Transcribed By: Self Edit Transcribed Date: 06/17/2025 11:43 ET Jovanny Kennedy MD IMG FLUOROSCOPY PROCEDURES Fin al Result * HM Urine Albumin Creatinine Ratio (07/05/2024) [facility] Urine Albumin Creatinine Ratio abstracted Result [facility] Provider HEALTH MAINTENANCE Final Result * (ABNORMAL) Lipid panel (07/05/2024) [facility] LDL/HDL Ratio 2 0 - 4 Triglycerides 169(A) 0 - 150 mg/dL Cholesterol 112 0 - 200 mg/dL HDL 52 >=40 mg/dL LDL Cholesterol 27 0 - 100 mg/dL Blood Venous blood specimen / Unknown Result [facility] Provider LAB BLOOD ORDERABLES Nadya l Result * Diabetes Eye Exam (07/04/2024) [facility] Diabetes: Annual Retina Eye Exam abstracted Result [facility] Provider HEALTH MAINTENANCE Final Result * Diabetes Foot Exam (04/26/2023) [facility] Diabetes: Annual Foot Exam abstracted Result [facility] Provider HEALTH MAINTENANCE Final Result * Colonoscopy (12/18/2020) [facility] Colonoscopy no inperatati on,abstact ed Anatomical Region Laterality Modality Other Result [facility] Provider HEALTH MAINTENANCE Final Result * HIV Screening (04/15/2015) [facility] HIV Screening abstracted Result [facility] Provider HEALTH MAINTENANCE Final Result from Last 3 Months or Most Recently Relevant to Health Maintenance Insurance [employer] Care Teams Toxicology Teacher Relationship Specialty Start Date End Date Earnest Dorado PA [address] [place] [address] PCP - General Internal Medicine 10/09/24
--- OUTSIDE RECORDS SUMMARY | 2025-09-04 11:53 | XMS_ITS | Clinical Summary ---
Author Organization [facility] Address [address] [place], [place] [id number] Care Team Providers Care Power Electronics Engineer Name Role Phone Earnest Dorado PA-C [...] age to complete this topic Care Teams Power Electronics Engineer Relationship Specialty Start Date End Date Earnest Dorado, [facility] PCP - General Medical Services 07/09/24
== END 2025-09-04 10:07 | disposition home or self-care (01) ==
LOC: HO.BBR 10:06
PROVIDERS: PCP Physician Assistant Medical; Visit Provider Internal Medicine Hematology & Oncology
DX: Z13.89 Encounter for screening for other disorder (principal)